=== PATIENT | male | born 1950 | race Caucasian/White ===

== ENCOUNTER 2016-12-10 17:45 | Emergency (ER) | payer OTHER ==
[~2016-12-10] VITALS: Wt 102.1 kg
[~2016-12-10 17:45] MED LIST: ASPIR-LOW81 MG PO; DIOVAN HCT 25 M1 TAB PO; DIOVAN HCT PO; DIOVAN80 M1 PO; ENALAPRIL MALEA20 MG PO; ENALAPRIL20 MG PO; EXCEDRIN 250 MG1 TA1 PO; FENOFIBRATE MIC67 MG PO; GLIMEPIRIDE2 MG PO; HYDROCODONE BIT1 T11 PO; IBUPROFEN; LIPITOR40 MG PO; LOPRESSOR25 MG PO; METOPROLOL SR25 MG PO; NEXIUM40 MG PO; OMEPRAZOLE20 MG PO; PLAVIX75 MG PO; TRICOR48 MG PO; VOLTAREN50 MG PO; [UNRECOGNIZED DRUG - OTHER] PO
[2016-12-10 18:21] LABS: BASO % 0.6 % (0.0-1.0); EOS # 0.2 10*3/uL (0.0-0.4); EOS % 3.3 % (1.0-4.0); HEMOGLOBIN 11.3 g/dl (14.0-18.0); IG # 0.1 10*3/uL (0.0-0.1); LYMPH # 1.4 10*3/uL (1.3-4.4); LYMPH % 27.8 % (27.0-41.0); MEAN CELL VOLUME 92.6 fl (80.0-94.0); MEAN CORPUSCULAR HGB 30.8 pg (27.0-31.0); MEAN CORPUSCULAR HGB CONC 33.2 g/dl (33.0-37.0); MEAN PLATELET VOLUME 9.9 fl (9.6-12.3); MONO # 0.4 10*3/uL (0.1-1.0); MONO % 7.1 % (3.0-9.0); NEUT # 3.1 10*3/uL (2.3-7.9); PLATELET COUNT AUTOMATED 143 10*3/uL (130-400); RED BLOOD COUNT 3.67 10*6/uL (4.50-5.90); RED CELL DISTRI WIDTH 16.8 % (0-14.5); WHITE BLOOD COUNT 5.1 10*3/uL (4.8-10.8)
[2016-12-10 18:30] LABS: INTERNATIONAL NORM RATIO 1.2 (2.0-3.5); PROTHROMBIN TIME 13.1 SECONDS (9.0-12.4)
[2016-12-10 18:40] LABS: BILIRUBIN, TOTAL 0.6 mg/dl (0.2-1.0); POTASSIUM 2.9 mmol/L (3.5-5.1); TOTAL PROTEIN 6.4 gm/dL (6.4-8.2); TROPONIN I 0.028 ng/ml (<0.045)
[2016-12-10 20:02] VITALS: BP 156/83
== END 2016-12-10 20:21 | disposition short-term general hospital (02) ==
LOC: ED 17:45
PROVIDERS: Nurse Practitioner Family
DX: R56.9 Unspecified convulsions (principal); R03.0 Elevated blood-pressure reading, without diagnosis of hypertension; E87.6 Hypokalemia; E83.42 Hypomagnesemia; Z95.5 Presence of coronary angioplasty implant and graft; Z79.899 Other long term (current) drug therapy; Z85.528 Personal history of other malignant neoplasm of kidney; Z85.830 Personal history of malignant neoplasm of bone

== ENCOUNTER → 2016-12-29 | Outpatient (CLI) | payer OTHER | END | disposition home or self-care (01) | LOC: RAD 10:22 | DX: M75.32 Calcific tendinitis of left shoulder (principal); M19.012 Primary osteoarthritis, left shoulder ==

== ENCOUNTER → 2017-03-17 | Outpatient (CLI) | payer MEDICARE, BC | END | disposition home or self-care (01) | LOC: US 13:22 | DX: Z51.11 Encounter for antineoplastic chemotherapy (principal); C64.9 Malignant neoplasm of unspecified kidney, except renal pelvis; M79.89 Other specified soft tissue disorders; I10 Essential (primary) hypertension; R41.0 Disorientation, unspecified; R56.9 Unspecified convulsions ==

== ENCOUNTER → 2017-05-25 | Outpatient (CLI) | payer MEDICARE, BC ==
[2017-05-25 12:20] LABS: HEMATOCRIT 31.6 % (42.0-52.0); MEAN CELL VOLUME 95.8 fl (80.0-94.0); MEAN CORPUSCULAR HGB 30.3 pg (27.0-31.0); MEAN CORPUSCULAR HGB CONC 31.6 g/dl (33.0-37.0); MEAN PLATELET VOLUME 10.8 fl (9.6-12.3); RED BLOOD COUNT 3.3 10*6/uL (4.50-5.90); RED CELL DISTRI WIDTH 17.8 % (0-14.5); WHITE BLOOD COUNT 7.4 10*3/uL (4.8-10.8)
[2017-05-25 12:46] LABS: ALBUMIN 2.8 gm/dl (3.1-4.5); ALKALINE PHOSPHATASE 114 U/L (45-117); BUN 17 mg/dl (7-24); CHLORIDE 110 mmol/L (98-107); CHOLESTEROL 118 mg/dL (<200); CREATININE 1.32 mg/dL (0.70-1.30); HDL CHOLESTEROL 41 mg/dl (40-60); LDL CHOLESTEROL 45 mg/dL (9-159); POTASSIUM 4.4 mmol/L (3.5-5.1); SGOT/AST 28 IU/L (3-35); SGPT/ALT 31 U/L (12-78); SODIUM 145 mmol/L (136-145); TOTAL PROTEIN 6.3 gm/dL (6.4-8.2); TRIGLYCERIDES 159 mg/dl (<150); VLDL CHOLESTEROL 32 mg/dL (6-40)
== END | disposition home or self-care (01) ==
LOC: LAB 11:36
PROVIDERS: Registered Nurse Flight
DX: E78.5 Hyperlipidemia, unspecified (principal); E11.22 Type 2 diabetes mellitus with diabetic chronic kidney disease; N18.3 Chronic kidney disease, stage 3 (moderate); E03.9 Hypothyroidism, unspecified

== ENCOUNTER → 2017-09-30 | Outpatient (CLI) | payer MEDICARE, BC ==
[2017-09-30 11:50] LABS: HEMATOCRIT 29.7 % (42.0-52.0); MEAN CELL VOLUME 92.5 fl (80.0-94.0); MEAN CORPUSCULAR HGB CONC 30.3 g/dl (33.0-37.0); NUCLEATED RED BLOOD CELL 0.3 % (0.0-0.0); RED BLOOD COUNT 3.21 10*6/uL (4.50-5.90); RED CELL DISTRI WIDTH 16.5 % (0-14.5); WHITE BLOOD COUNT 5.9 10*3/uL (4.8-10.8)
[2017-09-30 12:16] LABS: ALBUMIN 2.6 gm/dl (3.1-4.5); ALKALINE PHOSPHATASE 98 U/L (45-117); BUN 11 mg/dl (7-24); CHLORIDE 106 mmol/L (98-107); CHOLESTEROL 127 mg/dL (<200); CREATININE 1.12 mg/dL (0.70-1.30); HDL CHOLESTEROL 40 mg/dl (40-60); LDL CHOLESTEROL 61 mg/dL (9-159); LIPASE 100 U/L (73-393); POTASSIUM 3.8 mmol/L (3.5-5.1); SGOT/AST 22 IU/L (3-35); SGPT/ALT 21 U/L (12-78); SODIUM 143 mmol/L (136-145); TOTAL PROTEIN 6.2 gm/dL (6.4-8.2); TRIGLYCERIDES 132 mg/dl (<150); VLDL CHOLESTEROL 26 mg/dL (6-40)
== END | disposition home or self-care (01) ==
LOC: LAB 11:25
PROVIDERS: Registered Nurse Flight
DX: E03.9 Hypothyroidism, unspecified (principal); R10.12 Left upper quadrant pain; E11.22 Type 2 diabetes mellitus with diabetic chronic kidney disease; N18.3 Chronic kidney disease, stage 3 (moderate); E78.5 Hyperlipidemia, unspecified; R07.81 Pleurodynia; C61 Malignant neoplasm of prostate

== ENCOUNTER → 2017-10-06 | Outpatient (CLI) | payer MEDICARE, BC | END | disposition home or self-care (01) | LOC: RAD 14:15 | DX: M16.11 Unilateral primary osteoarthritis, right hip (principal); M25.751 Osteophyte, right hip ==

== ENCOUNTER 2017-10-13 02:47 | Inpatient (IN) | payer MEDICARE, BC ==
[2017-10-13] VITALS (23 sets, daily range): BP systolic 125–237; BP diastolic 69–120
[~2017-10-13] VITALS: Ht 182.9 cm; Wt 100.9 kg
--- NOTE | ~2017-10-13 | PR ---
[place], [place] PROGRESS NOTE NAME: CAITLIN CONNELLY [facility] #: [id number] UNIT #: [id number] ROOM: [facility]- DOCTOR: KLEVER HUMPHRIES MD BIRTHDATE: [birth year] DOS: 10/14/2017 SUBJECTIVE: The patient was seen at his bedside in the intensive care unit today, 10/14/2017, for followup of his hypertensive emergency. He is a 67-year-old man who has a history of atherosclerotic heart disease. He has had at least 2 catheterizations and 3 stents in the last 10 years. Details are not presently available. He presented to the hospital now because of hypertensive emergency. The patient has been treated for renal cell cancer since 2010. He has failed three regimens and currently is on Cabozantinib for his chemotherapy. One of the side effects of this drug is hypertension and hypertensive emergency. We have spoken to the patient's Oncology Service (Dr. Wasserman at the [facility]). They were told that we should stop the Cabozantinib. I have spoken to Dr. Wasserman's nurse practitioner at length. Dr. Wasserman is currently out of town, but should be returning in the next 3 days and the nurse practitioner will speak to him about our issues. Since he has been in the hospital an echocardiogram has been done, which shows dilation of the ascending thoracic aorta at 4.9 cm, consistent with an ascending aneurysm. He has moderate LVH with a normal ejection fraction. The aortic valve is poorly visualized, but may be bicuspid. In addition to all of the above, he is being evaluated for possible acute cholecystitis. PHYSICAL EXAMINATION: VITAL SIGNS: Today his pulse is 63 and regular, blood pressure is 170/86. He is afebrile. NECK: Supple. He has no jugular distention. Carotids are full. LUNGS: Respirations are unlabored. His chest is clear to auscultation and percussion. HEART: Has a regular rhythm. He has grade 2/6 systolic ejection murmur along the left sternal border. The second heart sound is well preserved. There is no mid systolic click present. The PMI is not displaced. ABDOMEN: Benign. EXTREMITIES: Showed no edema. IMPRESSION: 1. Hypertensive emergency, most likely due to patient's chemotherapy (Cabozantinib). 2. Metastatic renal cell cancer. 3. History of atherosclerotic heart disease. 4. Ascending thoracic aortic aneurysm (4.9 cm) with possible bicuspid aortic valve. 5. Abdominal pain with possible acute cholecystitis. PLAN: We will increase his beta tayrn and add a diuretic to help control his blood pressure better. We will await the opinion of his oncologist to determine whether he is a candidate for an aggressive/invasive cardiac diagnostic workup [place], [place] PROGRESS NOTE [facility]: [id number] UNIT #: [id number] ROOM: [facility] DOCTOR: KLEVER HUMPHRIES MD BIRTHDATE: [birth year] and subsequent thoracotomy. I thank the hospitalist physicians for asking our advice regarding management of this patient. KLEVER HUMPHRIES MD CM:PNTRANS [phone] KLEVER HUMPHRIES MD 10/14/17 1713 interface
--- NOTE | ~2017-10-13 | PR ---
[place], [place] PROGRESS NOTE [id number] UN[facility] #: [id number] ROOM: 401 DOCTOR: JULIO PROCTOR,BRYANNA BIRTHDATE: [birth year] DOS: 10/16/2017 REASON FOR VISIT: Hypertension and ascending thoracic aortic aneurysm. SUBJECTIVE: The patient is feeling better. Denies any chest pain, shortness of breath. His blood pressures are much better after adding new medications yesterday. Denies any shortness of breath or palpitation, no dizziness, no PND, no orthopnea, no edema, no fever and chills. REVIEW OF SYSTEMS: Review of the 8 systems negative except as mentioned above. RHYTHM STRIPS: The patient in sinus rhythm. PHYSICAL EXAMINATION: VITAL SIGNS: Blood pressure 127/76, pulse 62, respirations 18. GENERAL: Alert ____ no acute distress. HEENT: Pupils are round and equal. No jaundice. NECK: Supple, no distended neck veins, no carotid bruit. CHEST: Symmetrical, nontender. LUNGS: Clear to auscultation bilaterally. HEART: Regular rhythm, no S3. ABDOMEN: Benign, nontender. Bowel sounds normal. EXTREMITIES: Showed a trace to 1+ edema. Distal pulses palpable. SKIN: Warm. No cyanosis, no clubbing. RECTAL: Deferred. GENITOURINARY: Deferred. IMPRESSION: 1. Accelerated hypertension, stable after adding hydralazine and hydrochlorothiazide. 2. Ascending thoracic aortic aneurysm 4.9 cm. 3. Atypical chest pains. 4. Anemia. 5. Chronic kidney disease. 6. History of bladder cancer. 7. Intermittent diarrhea due to chemotherapy. RECOMMENDATIONS: 1. Continue current medications. 2. Blood pressure and heart rates are stable. 3. Tomorrow Dr. Robledo will try to contact his oncologist and discuss his long-term prognosis due to his multiple cancers. If his prognosis is reasonable, then we will refer him to cardiothoracic surgery on outpatient basis for further evaluation of his ascending thoracic aortic aneurysm. 4. Continue to monitor his heart rate, blood pressures and labs. 5. The above treatment plan discussed with the patient and all questions answered. [place], [place] PROGRESS NOTE [facility]: [id number] UNIT #: [id number] ROOM: 401 DOCTOR: BRYANNA KIM MD BIRTHDATE: [birth year] BRYANNA KIM MD CM:DENYS [phone] BRYANNA KIM MD 10/17/17 0246 interface
--- NOTE | ~2017-10-13 | PR ---
[place], [place] PROGRESS NOTE NAME: CAITLIN CONNELLY [facility] #: [id number] UNIT #: [id number] ROOM: [place] [address] DOCTOR: KLEVER HUMPHRIES MD BIRTHDATE: [birth year] DOS: 10/13/2017 The patient was seen at his bedside in the intensive care unit today 10/13/2017. CHIEF COMPLAINT: Hypertensive urgency, chest tightness. HISTORY OF PRESENT ILLNESS: The patient is a 67-year-old man who is known to have coronary artery disease. He tells me that within the last 10 years he has had at least 2 catheterizations with 3 stents placed at [facility] and [facility]. The details are not currently available. He has had several stress tests over the years. A stress test with Lexiscan in August 2012 was normal with an ejection fraction of 67%, a subsequent one in March 2014 showed a small area of basal inferolateral ischemia. His most recent stress test did not have any imaging and was done on 09/26/2014. He only achieved 73% of his maximum predicted heart rate and only exercised for 6 minutes, but he did not have diagnostic EKG changes or chest discomfort at that time. Concurrently, the patient has had a long history of renal cell cancer. He states that he was first diagnosed around 2009 prior to which he did have a prostatectomy for prostate cancer. The renal cell cancer was treated with radiation and chemotherapy. He had a partial left nephrectomy and then with the cancer recurred, he had a total left nephrectomy. He has been documented as having a left lung metastasis and has undergone a partial left upper lobectomy. More recently, he was found to have cancer in his left fifth rib. He tells me that he failed 3 chemotherapies. For the last year, he has been on a cabozantinib orally. This causes severe diarrhea, nausea and vomiting, but apparently has resulted in some slowing of tumor growth. Currently because of the side effects the patient takes the drug for 3 weeks orally out of the month and then takes a fourth week off. He presents to the hospital now with a pounding headache and shaking chills. Blood pressure at home was over 200 systolic. He was brought to the emergency room where he was remarkably hypertensive with a blood pressure of 237/120. He was given amlodipine, hydralazine, and enalapril. Blood pressure has improved and this morning on last measurement it was 129/70. Review of the patient's medications indicates that hypertension is a very common side effect of the cabozantinib. The package insert from the bench hand machine indicates that if the patient has a hypertensive emergency, the drug should probably be stopped. The patient has also noticed increased pedal edema lately, but he does note that he was started on amlodipine recently and this may have been the cause for that. PAST HISTORY: Includes: 1. Hypertension. 2. Atherosclerotic heart disease, status post 3 stents about 10 years ago at [facility] and [facility]. The patient has never had a heart attack. [place], [place] PROGRESS NOTE NAME: CAITLIN CONNELLY UNIT #: [id number] ROOM: [place] [address] DOCTOR: KLEVER HUMPHRIES MD BIRTHDATE: [birth year] 3. Prostate cancer documented around 2007. 4. Renal cell cancer documented around 2009, treated with radiation and chemotherapy. The patient has had a partial and then a total left nephrectomy. He has had a documented left upper lobe lung metastasis, which was resected and now is known to have a left fifth rib metastasis which is being treated medically. 5. Most recent imaging stress test was 04/16/2014 with Lexiscan. The patient had an ejection fraction of 77% with a small area of basal inferolateral ischemia. A subsequent exercise stress test without imaging 09/26/2014 was 6 minutes on a Jorden protocol, 73% maximum predicted heart rate. No chest pain or EKG changes at the level of exercise achieved. 6. The patient has had a right bundle branch block for several years. MEDICATIONS PRIOR TO ADMISSION: 1. Atorvastatin 40 mg at bedtime. 2. Cabozantinib 60 mg at bedtime for 3 weeks out of 4. He gets 1 week off out of every 4. 3. Cholecalciferol 1000 units daily. 4. Lomotil p.r.n. diarrhea. 5. Enalapril 20 mg daily. 6. Levothyroxine 125 mcg daily. 7. Magnesium oxide 400 mg b.i.d. 8. Morphine sulfate 100 mg p.o. b.i.d. 9. Centrum Silver once a day. 10. Omeprazole 20 mg daily. 11. Ondansetron 4 mg daily as needed. 12. Sertraline 100 mg daily. 13. Tramadol 50 mg q.i.d. ALLERGIES: The patient has no known drug allergies. FAMILY HISTORY: The patient's father in his 70s from cancer. His mother in her 50s from a motor vehicle accident. REVIEW OF SYSTEMS: The patient denies diplopia, loss of vision. He denies syncope. He has had some lightheadedness. He denies focal weakness. He had chest tightness prior to admission, which has since resolved. He denies focal weakness. He has had nausea and vomiting with his chemotherapy. He denies hemoptysis. He has had fevers and chills prior to admission. He denies any recent weight change. He has chronic diarrhea with chemotherapy. He denies blood in his stools, but he does get blood in his urine. He has had pedal edema. Remainder of the review of systems is negative except as noted above. SOCIAL HISTORY: The patient smoked until 2012 and stopped alcohol 1 year ago. PHYSICAL EXAMINATION: GENERAL: The patient is a well-nourished, white male who looks older than his stated age. VITAL SIGNS: Pulse is 90 and regular, blood pressure 129/70. He has temperature of 102.9 and a body mass index of 30.2. He weighs 100.9 kilograms. [place], [place] PROGRESS NOTE [facility]: [id number] [facility] #: [id number] ROOM: [place] [address] DOCTOR: KLEVER HUMPHRIES MD BIRTHDATE: [birth year] HEENT: Normocephalic and atraumatic. Extraocular muscles are intact. Sclerae are clear. Pupils equal, round and react to light. The oral mucosa is moist. Tongue is midline. NECK: Supple. He has no jugular distention. Carotids are full. I heard no bruits. He had no neck or supraclavicular masses and no thyromegaly. LUNGS: Respirations are unlabored. His chest is clear to auscultation and percussion with decreased breath sounds at the bases, but no wheezes or rales. HEART: Has a regular rhythm. He has a fourth heart sound, but no third heart sound. The PMI is not displaced. I did not hear significant murmur. There is no precordial heave, lift or thrill. ABDOMEN: Soft and normally active without masses, organomegaly or bruits. EXTREMITIES: Showed trace edema. He is wearing support stockings. Pedal pulses are palpable in the feet. LABORATORY DATA: I reviewed his electrocardiograms, which showed sinus rhythm with a right bundle branch block. He does have some mild lateral ST segment depression, but no acute changes are seen. Troponin levels have been negative thus far times 3. Sodium is 142, potassium 3.8, chloride 103, CO2 28, BUN 11, creatinine 1.27. Hemoglobin is 10.6, hematocrit 35.1. There are 8600 white cells and 214,000 platelets. I reviewed the patient's echocardiogram today. Left ventricular size is normal. He does have moderate concentric left ventricular hypertrophy, ejection fraction is normal. I saw no wall motion abnormalities. He does have a normal diastolic function for age. The left atrium appears mildly enlarged. The aortic valve is poorly visualized, but may be bicuspid. The ascending thoracic aorta is dilated at 4.9 cm. IMPRESSION: 1. Hypertensive urgency, most likely this is a side effect of his chemotherapy, cabozantinib. 2. Chest tightness. The patient does have a history of coronary artery disease, but no signs of acute coronary syndrome at this point. 3. Possible bicuspid aortic valve with ascending thoracic aortic aneurysm. 4. Metastatic renal cell cancer. PLAN: The patient's blood pressure is much better controlled now and I would like to control it further utilizing beta blockers, especially since he does have a descending thoracic aortic dilation. The patient appears to have very few options for the treatment of his metastatic cancer. His oncologist should be contacted with the news of his hypertensive emergency to see if we should continue his cabozantinib. Other options for further care should also be discussed. If he has a reasonable intermediate term prognosis, then further evaluation with a ORQUIDEA would be helpful to look at his aortic root and aortic valve and determine if he would be a candidate for aortic root replacement. This would require thoracotomy and would certainly be an extensive procedure if the patient's prognosis is otherwise poor. We will follow the patient with his other physicians and we thank the [place], [place] PROGRESS NOTE NAME: [facility] CONNE[facility]: [id number] UNIT #: [id number] ROOM: [place] [address] DOCTOR: KRISTEL PROCTOR,KLEVER BIRTHDATE: [birth year] hospitalist physicians for asking our advice regarding his care. KLEVER HUMPHRIES MD CM:PNTRANS [phone] KLEVER HUMPHRIES MD 10/13/17 1045 interface
--- NOTE | ~2017-10-13 | PR ---
[place], [place] PROGRESS NOTE [id number] #: [id number] ROOM: 401 DOCTOR: JULIO PROCTOR,BRYANNA BIRTHDATE: [birth year] DOS: 10/15/2017 REASON FOR VISIT: Hypertension and thoracic aortic aneurysm. SUBJECTIVE: The patient denies any chest pain or shortness of breath. Denies any dizziness, no PND, no orthopnea, no palpitations. The patient did have some diarrhea, which is getting better. REVIEW OF SYSTEMS: Review of the 8 systems negative except as mentioned above. RHYTHM STRIPS: The patient in sinus rhythm. PHYSICAL EXAMINATION: VITAL SIGNS: Blood pressure 175/91, pulse 58, respiratory rate was 16. GENERAL: Alert, comfortable, in no acute distress. HEENT: Pupils round, equal. No jaundice. Tongue was moist and pharynx clear. NECK: Supple, no distended neck veins, no carotid bruit. CHEST: Symmetrical, nontender. LUNGS: Clear to auscultation bilaterally. HEART: Regular rhythm, no S3. Grade 1/6 systolic murmur. ABDOMEN: Nontender. Bowel sounds normal. EXTREMITIES: Trace to 1+ edema. Distal pulses are palpable. SKIN: Warm and dry. No cyanosis, no clubbing. NEUROLOGIC: The patient is alert, oriented. No focal neurologic deficit. RECTAL: Deferred. GENITOURINARY: Deferred. MEDICATIONS AND LABORATORY DATA: Reviewed. Hemoglobin 9.1, creatinine 1.5. IMPRESSION: 1. Accelerated hypertension. 2. Ascending thoracic aortic aneurysm. 3. Sinus bradycardia. 4. Anemia. 5. Chronic kidney disease. 6. History of lung and bladder cancer, on chemotherapy. RECOMMENDATIONS: He need blood pressure control, add hydrochlorothiazide 12.5 mg once daily as well as hydralazine 50 mg twice a day and monitor his blood pressures. Continue rest of the medications. Discussed with several family members and all questions were answered. On Tuesday, Dr. Robledo will discuss with his oncologist who is currently on vacation and based on his long-term prognosis from his multiple cancers, further recommendation for his thoracic aortic aneurysm will be discussed. [place], [place] PROGRESS NOTE NAME: CAITLIN CONNELLY [facility] #: [id number] UNIT #: [id number] ROOM: 401 DOCTOR: JULIO PROCTOR,BRYANNA BIRTHDATE: [birth year] BRYANNA KIM MD CM:PNTRANS [phone] BRYANNA KIM MD 10/15/173 interface
[~2017-10-13 02:47] MED LIST changes: +OMEPRAZOLE D/R20 MG PO; -OMEPRAZOLE20 MG PO
[2017-10-13 03:06] LABS: BASO % 0.3 % (0.0-1.0); EOS # 0.2 10*3/uL (0.0-0.4); EOS % 1.9 % (1.0-4.0); HEMATOCRIT 35.1 % (42.0-52.0); HEMOGLOBIN 10.6 g/dl (14.0-18.0); LYMPH # 0.9 10*3/uL (1.3-4.4); LYMPH % 10.4 % (27.0-41.0); MEAN CELL VOLUME 92.1 fl (80.0-94.0); MEAN CORPUSCULAR HGB 27.8 pg (27.0-31.0); MEAN CORPUSCULAR HGB CONC 30.2 g/dl (33.0-37.0); MEAN PLATELET VOLUME 10.4 fl (9.6-12.3); MONO % 11.8 % (3.0-9.0); NEUT # 6.5 10*3/uL (2.3-7.9); NEUT % 75.1 % (47.0-73.0); PLATELET COUNT AUTOMATED 214 10*3/uL (130-400); RED BLOOD COUNT 3.81 10*6/uL (4.50-5.90); RED CELL DISTRI WIDTH 16.6 % (0-14.5); WHITE BLOOD COUNT 8.6 10*3/uL (4.8-10.8)
[2017-10-13 03:15] LABS: ACT PARTIAL THROMBO TIME 25.9 SECONDS (20.8-31.5); INTERNATIONAL NORM RATIO 0.9 (2.0-3.5)
[2017-10-13 03:23] LABS: ALBUMIN 3.1 gm/dl (3.1-4.5); ALKALINE PHOSPHATASE 151 U/L (45-117); BUN 11 mg/dl (7-24); CHLORIDE 103 mmol/L (98-107); CREATININE 1.27 mg/dL (0.70-1.30); POTASSIUM 3.8 mmol/L (3.5-5.1); SGOT/AST 33 IU/L (3-35); SGPT/ALT 27 U/L (12-78); SODIUM 142 mmol/L (136-145); TOTAL PROTEIN 7.2 gm/dL (6.4-8.2)
[2017-10-13 03:24] LABS: TROPONIN I < 0.015 ng/ml (<0.045)
[2017-10-13] MEDS ORDERED: MORPHINE SULFA100 MG PO (03:29)
[2017-10-13] MEDS ORDERED: TRAMADOL HCL50 MG PO (03:29)
[2017-10-13] MEDS ORDERED: MAGNESIUM OXID400 MG PO (03:29)
[2017-10-13] MEDS ORDERED: LEVOTHYROXINE125 MCG PO (03:30)
[2017-10-13] MEDS ORDERED: LOMOTIL 2.5-0.1 EACH PO (03:30)
[2017-10-13] MEDS ORDERED: ONDANSETRON HYDR4 MG PO (03:31)
[2017-10-13] MEDS ORDERED: ENALAPRIL MALEA20 MG PO (03:31)
[2017-10-13] MEDS ORDERED: SERTRALINE HYDR50 MG PO (03:31)
[2017-10-13] MEDS ORDERED: SERTRALINE HYD100 MG PO (06:20)
[2017-10-13] MEDS ORDERED: CABOMETYX60 MG PO (06:24)
[2017-10-13] MEDS ORDERED: CENTRUM SILVER1 EAC3 PO (06:26)
[2017-10-13] MEDS ORDERED: VITAMIN D31000 UNI1 PO (06:27)
[2017-10-13 13:38] LABS: BILIRUBIN NEGATIVE (NEGATIVE); BLOOD NEGATIVE (NEGATIVE); CLARITY CLOUDY (CLEAR); COLOR YELLOW (YELLOW); GLUCOSE NEGATIVE (NEGATIVE); KETONE TRACE (NEGATIVE); LEUKO ESTERASE NEGATIVE (NEGATIVE); NITRITE NEGATIVE (NEGATIVE); PH 5.5 (5.0-9.0); SPECIFIC GRAVITY 1.025 (1.005-1.030); UROBILINOGEN 0.2 E.U./dl (0.2-1.0)
[2017-10-13 14:00] LABS: BACTERIA 2+
[2017-10-13 14:01] LABS: EPITHELIAL CELLS 21-30
[2017-10-14] VITALS: BP 145/70
[2017-10-14 04:00] VITALS: BP 140/74
[2017-10-14 04:42] LABS: HEMATOCRIT 29.6 % (42.0-52.0); HEMOGLOBIN 8.8 g/dl (14.0-18.0); MEAN CELL VOLUME 92.2 fl (80.0-94.0); MEAN CORPUSCULAR HGB 27.4 pg (27.0-31.0); MEAN CORPUSCULAR HGB CONC 29.7 g/dl (33.0-37.0); MEAN PLATELET VOLUME 10.2 fl (9.6-12.3); RED BLOOD COUNT 3.21 10*6/uL (4.50-5.90)
[2017-10-14 04:46] LABS: PLATELET COUNT AUTOMATED 137 10*3/uL (130-400)
[2017-10-14 05:08] LABS: ALBUMIN 2.2 gm/dl (3.1-4.5); CREATININE 1.55 mg/dL (0.70-1.30); PHOSPHOROUS 3.4 mg/dL (2.5-4.9); TOTAL PROTEIN 5.5 gm/dL (6.4-8.2)
[2017-10-14 05:32] LABS: TOTAL CELLS COUNTED 100 #CELLS
[2017-10-14 05:33] LABS: OVALOCYTES FEW; PLATELET SUFFICIENCY LOW (NORMAL)
[2017-10-14 08:00] VITALS: BP 172/80
[2017-10-14 08:33] LABS: VITAMIN D, 25-HYDROXY 21.2 ng/mL (30-100)
[2017-10-14 11:46] VITALS: BP 170/86
[2017-10-14 16:00] VITALS: BP 160/92
[2017-10-14 20:00] VITALS: BP 158/98
[2017-10-15] VITALS: BP 129/71
[2017-10-15 04:00] VITALS: BP 154/80
[2017-10-15 06:07] LABS: BASO % 0.1 % (0.0-1.0); EOS # 0.1 10*3/uL (0.0-0.4); EOS % 1.8 % (1.0-4.0); HEMATOCRIT 30.7 % (42.0-52.0); HEMOGLOBIN 9.1 g/dl (14.0-18.0); LYMPH # 0.3 10*3/uL (1.3-4.4); LYMPH % 3.4 % (27.0-41.0); MEAN CELL VOLUME 92.2 fl (80.0-94.0); MEAN CORPUSCULAR HGB 27.3 pg (27.0-31.0); MEAN CORPUSCULAR HGB CONC 29.6 g/dl (33.0-37.0); MEAN PLATELET VOLUME 10.6 fl (9.6-12.3); MONO # 1.3 10*3/uL (0.1-1.0); NEUT # 6.2 10*3/uL (2.3-7.9); NEUT % 78.1 % (47.0-73.0); PLATELET COUNT AUTOMATED 137 10*3/uL (130-400); RED BLOOD COUNT 3.33 10*6/uL (4.50-5.90); RED CELL DISTRI WIDTH 16.8 % (0-14.5)
[2017-10-15 06:27] LABS: CREATININE 1.51 mg/dL (0.70-1.30); POTASSIUM 3.5 mmol/L (3.5-5.1)
[2017-10-15 08:00] VITALS: BP 156/91
[2017-10-15 10:17] LABS: CREATININE 1.51 mg/dL (0.70-1.30); POTASSIUM 3.5 mmol/L (3.5-5.1)
[2017-10-15 10:43] LABS: TOTAL PROTEIN 5.9 gm/dL (6.4-8.2)
[2017-10-15 10:44] LABS: ALBUMIN 2.3 gm/dl (3.1-4.5)
[2017-10-15 12:00] VITALS: BP 175/91
[2017-10-15 16:00] VITALS: BP 148/73
[2017-10-15 20:00] VITALS: BP 138/63
[2017-10-16] VITALS: BP 119/64
[2017-10-16 07:30] LABS: BASO % 0.2 % (0.0-1.0); EOS # 0.1 10*3/uL (0.0-0.4); EOS % 1.3 % (1.0-4.0); HEMOGLOBIN 9.3 g/dl (14.0-18.0); LYMPH # 0.4 10*3/uL (1.3-4.4); LYMPH % 7.1 % (27.0-41.0); MEAN CELL VOLUME 89.3 fl (80.0-94.0); MEAN CORPUSCULAR HGB 27.7 pg (27.0-31.0); MEAN PLATELET VOLUME 10.6 fl (9.6-12.3); MONO # 0.9 10*3/uL (0.1-1.0); MONO % 16.6 % (3.0-9.0); NEUT # 3.9 10*3/uL (2.3-7.9); PLATELET COUNT AUTOMATED 132 10*3/uL (130-400); RED BLOOD COUNT 3.36 10*6/uL (4.50-5.90); WHITE BLOOD COUNT 5.2 10*3/uL (4.8-10.8)
[2017-10-16 07:40] LABS: ALBUMIN 2.2 gm/dl (3.1-4.5); ALKALINE PHOSPHATASE 207 U/L (45-117); BUN 15 mg/dl (7-24); CHLORIDE 103 mmol/L (98-107); CREATININE 1.43 mg/dL (0.70-1.30); POTASSIUM 3.5 mmol/L (3.5-5.1); SGOT/AST 44 IU/L (3-35); SGPT/ALT 35 U/L (12-78); SODIUM 139 mmol/L (136-145)
[2017-10-16 08:00] VITALS: BP 138/68
[2017-10-16 12:00] VITALS: BP 127/76
[2017-10-16 16:00] VITALS: BP 124/64
[2017-10-16 20:00] VITALS: BP 148/72
[2017-10-16 21:06] VITALS: BP 138/70
[2017-10-17] VITALS: BP 133/60
[2017-10-17 06:43] LABS: BASO % 0.2 % (0.0-1.0); EOS # 0.1 10*3/uL (0.0-0.4); EOS % 2.5 % (1.0-4.0); HEMATOCRIT 29.1 % (42.0-52.0); HEMOGLOBIN 8.8 g/dl (14.0-18.0); LYMPH # 0.6 10*3/uL (1.3-4.4); LYMPH % 13.9 % (27.0-41.0); MEAN CELL VOLUME 90.7 fl (80.0-94.0); MEAN CORPUSCULAR HGB 27.4 pg (27.0-31.0); MEAN CORPUSCULAR HGB CONC 30.2 g/dl (33.0-37.0); MEAN PLATELET VOLUME 11.2 fl (9.6-12.3); MONO # 0.9 10*3/uL (0.1-1.0); MONO % 19.4 % (3.0-9.0); NEUT # 2.8 10*3/uL (2.3-7.9); NEUT % 62.9 % (47.0-73.0); PLATELET COUNT AUTOMATED 127 10*3/uL (130-400); RED BLOOD COUNT 3.21 10*6/uL (4.50-5.90); RED CELL DISTRI WIDTH 16.8 % (0-14.5); WHITE BLOOD COUNT 4.4 10*3/uL (4.8-10.8)
[2017-10-17 07:09] LABS: ALBUMIN 2.3 gm/dl (3.1-4.5); ALKALINE PHOSPHATASE 291 U/L (45-117); BUN 14 mg/dl (7-24); CHLORIDE 103 mmol/L (98-107); CREATININE 1.42 mg/dL (0.70-1.30); POTASSIUM 3.6 mmol/L (3.5-5.1); SGOT/AST 47 IU/L (3-35); SGPT/ALT 39 U/L (12-78); SODIUM 139 mmol/L (136-145); TOTAL PROTEIN 5.8 gm/dL (6.4-8.2)
[2017-10-17 08:00] VITALS: BP 162/80
[2017-10-17 12:00] VITALS: BP 115/66
[2017-10-17] MEDS ORDERED: B12,B-12,B 12500 MC1 PO (15:58)
[2017-10-17] MEDS ORDERED: TOPROL XL50 M1 PO (15:58)
[2017-10-17] MEDS ORDERED: CIPRO500 MG PO (15:58)
[2017-10-17] MEDS ORDERED: ENALAPRIL MALEA10 MG PO (15:58)
[2017-10-17] MEDS ORDERED: HYDR12.5C PO (15:58)
[2017-10-17] MEDS ORDERED: AMLODIPINE BESYL5 MG PO (15:58)
== END 2017-10-17 16:31 | disposition home or self-care (01) | DRG 872 ==
LOC: ED 02:47 → 4E 05:09 → EDHOLD 05:09 → ICCU 05:09 → 4E 10-15 13:50
PROVIDERS: Emergency Medicine Emergency Medical Services; Internal Medicine; Internal Medicine Nephrology; Student in an Organized Health Care Education/Training Program
DX: A41.9 Sepsis, unspecified organism (principal); E44.0 Moderate protein-calorie malnutrition; C78.02 Secondary malignant neoplasm of left lung; K80.00 Calculus of gallbladder with acute cholecystitis without obstruction; K52.0 Gastroenteritis and colitis due to radiation; M84.454A Pathological fracture, pelvis, initial encounter for fracture; E11.22 Type 2 diabetes mellitus with diabetic chronic kidney disease; I38 Endocarditis, valve unspecified; C64.9 Malignant neoplasm of unspecified kidney, except renal pelvis; I16.1 Hypertensive emergency; I71.2 Thoracic aortic aneurysm, without rupture; R65.20 Severe sepsis without septic shock; K21.9 Gastro-esophageal reflux disease without esophagitis; I25.10 Atherosclerotic heart disease of native coronary artery without angina pectoris; E03.9 Hypothyroidism, unspecified; D64.9 Anemia, unspecified; N18.9 Chronic kidney disease, unspecified; I12.9 Hypertensive chronic kidney disease with stage 1 through stage 4 chronic kidney disease, or unspecified chronic kidney disease; E55.9 Vitamin D deficiency, unspecified; E78.5 Hyperlipidemia, unspecified; K76.0 Fatty (change of) liver, not elsewhere classified; R07.89 Other chest pain; F32.9 Major depressive disorder, single episode, unspecified; F10.21 Alcohol dependence, in remission; E66.09 Other obesity due to excess calories; Z68.30 Body mass index [BMI] 30.0-30.9, adult; Z90.5 Acquired absence of kidney; Z79.899 Other long term (current) drug therapy; Z80.9 Family history of malignant neoplasm, unspecified; Z95.818 Presence of other cardiac implants and grafts; Z90.49 Acquired absence of other specified parts of digestive tract; Z90.79 Acquired absence of other genital organ(s); Z87.891 Personal history of nicotine dependence; Z90.2 Acquired absence of lung [part of]

== ENCOUNTER 2017-10-22 15:27 | Emergency (ER) | payer MEDICARE, BC ==
[~2017-10-22] VITALS: Ht 182.8 cm; Wt 99.3 kg
[~2017-10-22 15:27] MED LIST changes: +AMLODIPINE BESYL5 MG PO; +B12,B-12,B 12500 MC1 PO; +CABOMETYX60 MG PO; +CENTRUM SILVER1 EAC3 PO; +CIPRO500 MG PO; +ENALAPRIL MALEA10 MG PO; +HYDR12.5C PO; +LEVOTHYROXINE125 MCG PO; +LOMOTIL 2.5-0.1 EACH PO; +MAGNESIUM OXID400 MG PO; +MORPHINE SULFA100 MG PO; +ONDANSETRON HYDR4 MG PO; +SERTRALINE HYD100 MG PO; +SERTRALINE HYDR50 MG PO; +TOPROL XL50 M1 PO; +TRAMADOL HCL50 MG PO; +VITAMIN D31000 UNI1 PO
[2017-10-22 15:28] VITALS: BP 137/83
== END 2017-10-22 16:58 | disposition home or self-care (01) ==
LOC: ED 15:27
DX: S22.42XA Multiple fractures of ribs, left side, initial encounter for closed fracture (principal); Z87.891 Personal history of nicotine dependence; Z90.49 Acquired absence of other specified parts of digestive tract; Z98.890 Other specified postprocedural states; Z90.89 Acquired absence of other organs; W19.XXXA Unspecified fall, initial encounter; Y93.89 Activity, other specified; Y92.099 Unspecified place in other non-institutional residence as the place of occurrence of the external cause; Y99.9 Unspecified external cause status

== ENCOUNTER → 2017-12-07 | Outpatient (CLI) | payer MEDICARE, BC | END | disposition home or self-care (01) | LOC: RESCLI 03:38 | DX: Z09 Encounter for follow-up examination after completed treatment for conditions other than malignant neoplasm (principal); C64.2 Malignant neoplasm of left kidney, except renal pelvis; C44.42 Squamous cell carcinoma of skin of scalp and neck; C79.51 Secondary malignant neoplasm of bone; C18.9 Malignant neoplasm of colon, unspecified; I10 Essential (primary) hypertension; H90.3 Sensorineural hearing loss, bilateral; H93.13 Tinnitus, bilateral; M84.454A Pathological fracture, pelvis, initial encounter for fracture; G51.3 Clonic hemifacial spasm; E78.2 Mixed hyperlipidemia; E03.8 Other specified hypothyroidism; E78.00 Pure hypercholesterolemia, unspecified ==

== ENCOUNTER → 2018-01-11 | Outpatient (CLI) | payer MEDICARE, BC | END | disposition home or self-care (01) | LOC: RESCLI 03:35 | DX: C79.51 Secondary malignant neoplasm of bone (principal); M19.90 Unspecified osteoarthritis, unspecified site; E78.4 Other hyperlipidemia; C64.2 Malignant neoplasm of left kidney, except renal pelvis; I10 Essential (primary) hypertension; K21.9 Gastro-esophageal reflux disease without esophagitis; E03.9 Hypothyroidism, unspecified; Z90.49 Acquired absence of other specified parts of digestive tract; Z98.890 Other specified postprocedural states; Z90.5 Acquired absence of kidney; Z79.899 Other long term (current) drug therapy ==

== ENCOUNTER 2018-01-26 15:27 | Emergency (ER) | payer MEDICARE, BC ==
[~2018-01-26] VITALS: Wt 99.8 kg
--- NOTE | ~2018-01-26 | EKG ---
[place], [place] ELECTROCARDIOGRAM REPORT NAME: CAITLIN CONNELLY UNIT #: [id number] ROOM: DOCTOR: [facility] DRAFT REPORT BIRTHDATE: [birth year] [facility] Test Date: 2018-01-26 Test Time: 16:03:52 Pat Name: CAITLIN CONNELLY Department: Room: Gender: Instructional Interventionist: Deborah Gomez : 1950 Requested By: JOYCELYN IVORY Order Number: [id number] Reading MD: Dayron Wan MD Measurements Intervals [place] Rate: 61 P: -33 DC: 242 QRS: 34 QRSD: 137 T: -10 QT: 448 QTc: 452 Interpretive Statements Sinus rhythm Prolonged DC interval Right bundle branch block Baseline wander in lead(s) I Electronically Signed On 01-26-2018 19:58:48 PDT by Dayron Wan MD CM:EKGRPT:ELECTROCARDIOGRAM REPORT 02 57 JOYCELYN MEDEIROS DRAFT REPORT JOYCELYN IVORY DO
[2018-01-26 16:07] LABS: HEMATOCRIT 29.6 % (42.0-52.0); HEMOGLOBIN 9.2 g/dl (14.0-18.0); MEAN CORPUSCULAR HGB CONC 31.1 g/dl (33.0-37.0); MEAN PLATELET VOLUME 10.9 fl (9.6-12.3); PLATELET COUNT AUTOMATED 125 10*3/uL (130-400); RED BLOOD COUNT 3.29 10*6/uL (4.50-5.90); RED CELL DISTRI WIDTH 19.2 % (0-14.5); WHITE BLOOD COUNT 21.7 10*3/uL (4.8-10.8)
[2018-01-26 16:23] LABS: ALBUMIN 2.8 gm/dl (3.1-4.5); ALKALINE PHOSPHATASE 380 U/L (45-117); BUN 44 mg/dl (7-24); CHLORIDE 107 mmol/L (98-107); CREATININE 3.28 mg/dL (0.70-1.30); LIPASE 133 U/L (73-393); POTASSIUM 4.2 mmol/L (3.5-5.1); SGOT/AST 292 IU/L (3-35); SGPT/ALT 253 U/L (12-78); SODIUM 141 mmol/L (136-145); TOTAL PROTEIN 6.3 gm/dL (6.4-8.2)
[2018-01-26 16:26] LABS: TOTAL CELLS COUNTED 100 #CELLS; TROPONIN I < 0.015 ng/ml (<0.045)
[2018-01-26 16:27] LABS: BURR CELLS FEW; OVALOCYTES FEW; PLATELET SUFFICIENCY NORMAL (NORMAL)
[2018-01-26 16:42] LABS: BILIRUBIN 3+ (NEGATIVE); BLOOD NEGATIVE (NEGATIVE); CLARITY SL CLOUDY (CLEAR); COLOR YELLOW (YELLOW); GLUCOSE NEGATIVE (NEGATIVE); KETONE 1+ (NEGATIVE); LEUKO ESTERASE NEGATIVE (NEGATIVE); NITRITE NEGATIVE (NEGATIVE); SPECIFIC GRAVITY >= 1.030 (1.005-1.030); UROBILINOGEN >= 8.0 E.U./dl (0.2-1.0)
[2018-01-26 17:15] LABS: BACTERIA 2+; EPITHELIAL CELLS 21-30
[2018-01-26 18:50] VITALS: BP 102/63
== END 2018-01-26 22:41 | disposition short-term general hospital (02) ==
LOC: ED 15:27
PROVIDERS: Internal Medicine
DX: K83.0 Cholangitis (principal); I25.10 Atherosclerotic heart disease of native coronary artery without angina pectoris; E11.9 Type 2 diabetes mellitus without complications; I10 Essential (primary) hypertension; E78.5 Hyperlipidemia, unspecified; E03.9 Hypothyroidism, unspecified; Z87.891 Personal history of nicotine dependence; Z79.899 Other long term (current) drug therapy

== ENCOUNTER 2018-03-28 15:45 | Inpatient (IN) | payer MEDICARE, BC ==
[~2018-03-28] VITALS: Ht 182.8 cm; Wt 99.8 kg
[2018-03-28 15:47] VITALS: BP 128/79
[2018-03-28 17:20] LABS: BASO % 0.2 % (0.0-1.0); EOS # 0.2 10*3/uL (0.0-0.4); EOS % 1.3 % (1.0-4.0); HEMATOCRIT 29.9 % (42.0-52.0); HEMOGLOBIN 9.9 g/dl (14.0-18.0); LYMPH # 0.7 10*3/uL (1.3-4.4); LYMPH % 4.8 % (27.0-41.0); MEAN CELL VOLUME 88.2 fl (80.0-94.0); MEAN CORPUSCULAR HGB 29.2 pg (27.0-31.0); MEAN CORPUSCULAR HGB CONC 33.1 g/dl (33.0-37.0); MEAN PLATELET VOLUME 9.7 fl (9.6-12.3); MONO # 1.3 10*3/uL (0.1-1.0); MONO % 8.9 % (3.0-9.0); NEUT # 12.7 10*3/uL (2.3-7.9); NEUT % 84.1 % (47.0-73.0); PLATELET COUNT AUTOMATED 143 10*3/uL (130-400); RED BLOOD COUNT 3.39 10*6/uL (4.50-5.90); RED CELL DISTRI WIDTH 17.6 % (0-14.5); WHITE BLOOD COUNT 15.1 10*3/uL (4.8-10.8)
[2018-03-28 17:29] LABS: ACT PARTIAL THROMBO TIME 30.3 SECONDS (20.8-31.5)
[2018-03-28 17:36] LABS: ALBUMIN 2.7 gm/dl (3.1-4.5); CREATININE 2.88 mg/dL (0.70-1.30); POTASSIUM 4.4 mmol/L (3.5-5.1); TOTAL PROTEIN 7.1 gm/dL (6.4-8.2)
[2018-03-28 18:16] LABS: BILIRUBIN NEGATIVE (NEGATIVE); BLOOD NEGATIVE (NEGATIVE); CLARITY SL CLOUDY (CLEAR); COLOR YELLOW (YELLOW); GLUCOSE NEGATIVE (NEGATIVE); KETONE NEGATIVE (NEGATIVE); LEUKO ESTERASE NEGATIVE (NEGATIVE); NITRITE NEGATIVE (NEGATIVE); PH 5.5 (5.0-9.0); SPECIFIC GRAVITY >= 1.030 (1.005-1.030); UROBILINOGEN 0.2 E.U./dl (0.2-1.0)
[2018-03-28 18:26] LABS: BACTERIA 2+
[2018-03-28 18:27] LABS: EPITHELIAL CELLS 16-20
[2018-03-28 18:34] VITALS: BP 101/65
[2018-03-28 20:30] VITALS: BP 125/87; BP 127/87
[2018-03-28] MEDS ORDERED: CABOMETYX40 MG PO (21:36)
[2018-03-29] VITALS: BP 105/67
[2018-03-29 06:21] LABS: HEMATOCRIT 28.3 % (42.0-52.0); HEMOGLOBIN 8.8 g/dl (14.0-18.0); MEAN CELL VOLUME 90.1 fl (80.0-94.0); MEAN CORPUSCULAR HGB CONC 31.1 g/dl (33.0-37.0); MEAN PLATELET VOLUME 10.4 fl (9.6-12.3); PLATELET COUNT AUTOMATED 135 10*3/uL (130-400); RED BLOOD COUNT 3.14 10*6/uL (4.50-5.90); RED CELL DISTRI WIDTH 17.6 % (0-14.5); WHITE BLOOD COUNT 12.7 10*3/uL (4.8-10.8)
[2018-03-29 06:42] LABS: ALBUMIN 2.4 gm/dl (3.1-4.5); CREATININE 2.62 mg/dL (0.70-1.30); PHOSPHOROUS 3.8 mg/dL (2.5-4.9); POTASSIUM 5.3 mmol/L (3.5-5.1); TOTAL PROTEIN 6.5 gm/dL (6.4-8.2)
[2018-03-29 06:48] LABS: FREE T4 0.98 ng/dl (0.76-1.46); THYROID STIM HORMONE (HS) 0.43 uIU/ml (0.358-4.75)
[2018-03-29 07:35] LABS: TOTAL CELLS COUNTED 100 #CELLS
[2018-03-29 07:36] LABS: BURR CELLS MODERATE; OVALOCYTES FEW; PLATELET SUFFICIENCY NORMAL (NORMAL); POLYCHROMASIA SLIGHT
[2018-03-29 08:00] VITALS: BP 105/65
[2018-03-29 08:35] LABS: VITAMIN D, 25-HYDROXY 19.6 ng/mL (30-100)
[2018-03-29 12:00] VITALS: BP 120/66
[2018-03-29 16:00] VITALS: BP 130/78
[2018-03-29 20:00] VITALS: BP 137/78
[2018-03-30] VITALS: BP 121/62
[2018-03-30 06:24] LABS: HEMATOCRIT 28.2 % (42.0-52.0); HEMOGLOBIN 8.8 g/dl (14.0-18.0); MEAN CORPUSCULAR HGB 28.4 pg (27.0-31.0); MEAN CORPUSCULAR HGB CONC 31.2 g/dl (33.0-37.0); MEAN PLATELET VOLUME 10.6 fl (9.6-12.3); PLATELET COUNT AUTOMATED 170 10*3/uL (130-400); RED CELL DISTRI WIDTH 17.6 % (0-14.5); WHITE BLOOD COUNT 13.1 10*3/uL (4.8-10.8)
[2018-03-30 06:38] LABS: CREATININE 2.07 mg/dL (0.70-1.30); POTASSIUM 5.3 mmol/L (3.5-5.1)
[2018-03-30 07:18] LABS: TOTAL CELLS COUNTED 100 #CELLS
[2018-03-30 07:19] LABS: PLATELET SUFFICIENCY NORMAL (NORMAL); POLYCHROMASIA SLIGHT
[2018-03-30 08:00] VITALS: BP 132/83
[2018-03-30 12:00] VITALS: BP 108/52
[2018-03-30 16:00] VITALS: BP 131/70
[2018-03-30 20:00] VITALS: BP 141/85
[2018-03-31] VITALS: BP 129/80
[2018-03-31 06:56] LABS: BASO % 0.4 % (0.0-1.0); EOS # 0.2 10*3/uL (0.0-0.4); EOS % 1.9 % (1.0-4.0); HEMATOCRIT 28.4 % (42.0-52.0); HEMOGLOBIN 9.1 g/dl (14.0-18.0); LYMPH # 1.1 10*3/uL (1.3-4.4); LYMPH % 11.8 % (27.0-41.0); MEAN CORPUSCULAR HGB 29.2 pg (27.0-31.0); MEAN PLATELET VOLUME 9.8 fl (9.6-12.3); MONO % 10.8 % (3.0-9.0); NEUT # 6.9 10*3/uL (2.3-7.9); NEUT % 73.2 % (47.0-73.0); PLATELET COUNT AUTOMATED 151 10*3/uL (130-400); RED BLOOD COUNT 3.12 10*6/uL (4.50-5.90); RED CELL DISTRI WIDTH 17.6 % (0-14.5); WHITE BLOOD COUNT 9.4 10*3/uL (4.8-10.8)
[2018-03-31 07:22] LABS: ALBUMIN 2.5 gm/dl (3.1-4.5); CREATININE 1.66 mg/dL (0.70-1.30); POTASSIUM 4.6 mmol/L (3.5-5.1); TOTAL PROTEIN 6.6 gm/dL (6.4-8.2)
[2018-03-31 08:00] VITALS: BP 135/77
[2018-03-31] MEDS ORDERED: LEVAQUIN750 M1 PO (12:31)
[2018-04-28] MEDS ORDERED: LIDODERM1 EACH TD (15:34)
[2018-04-28] MEDS ORDERED: Percocet 325 MG1 TAB PO (15:35)
[2018-05-02] MEDS ORDERED: LACTINEX 0.2 MG1 TAB PO (16:19)
[2018-05-02] MEDS ORDERED: Duragesic 50 M50 MCG T (16:19)
== END 2018-03-31 13:42 | disposition home or self-care (01) | DRG 393 ==
LOC: ED 15:45 → EDHOLD 19:10 → 5E 19:10
PROVIDERS: Internal Medicine; Physician Assistant
DX: K52.1 Toxic gastroenteritis and colitis (principal); N17.0 Acute kidney failure with tubular necrosis; E43 Unspecified severe protein-calorie malnutrition; J18.1 Lobar pneumonia, unspecified organism; C64.2 Malignant neoplasm of left kidney, except renal pelvis; I50.32 Chronic diastolic (congestive) heart failure; F33.9 Major depressive disorder, recurrent, unspecified; I13.0 Hypertensive heart and chronic kidney disease with heart failure and stage 1 through stage 4 chronic kidney disease, or unspecified chronic kidney disease; N18.3 Chronic kidney disease, stage 3 (moderate); M89.9 Disorder of bone, unspecified; T45.1X5A Adverse effect of antineoplastic and immunosuppressive drugs, initial encounter; Y95 Nosocomial condition; E86.0 Dehydration; R79.89 Other specified abnormal findings of blood chemistry; D72.829 Elevated white blood cell count, unspecified; I25.10 Atherosclerotic heart disease of native coronary artery without angina pectoris; D64.9 Anemia, unspecified; E11.65 Type 2 diabetes mellitus with hyperglycemia; E78.5 Hyperlipidemia, unspecified; E03.9 Hypothyroidism, unspecified; E55.9 Vitamin D deficiency, unspecified; E53.8 Deficiency of other specified B group vitamins; K21.9 Gastro-esophageal reflux disease without esophagitis; E11.22 Type 2 diabetes mellitus with diabetic chronic kidney disease; E66.9 Obesity, unspecified; Z90.49 Acquired absence of other specified parts of digestive tract; Z79.899 Other long term (current) drug therapy; Z90.89 Acquired absence of other organs; Y92.89 Other specified places as the place of occurrence of the external cause; Z90.79 Acquired absence of other genital organ(s); Z90.5 Acquired absence of kidney; Z95.5 Presence of coronary angioplasty implant and graft; Z87.891 Personal history of nicotine dependence; Z84.89 Family history of other specified conditions; Z80.8 Family history of malignant neoplasm of other organs or systems; Z85.46 Personal history of malignant neoplasm of prostate; Z90.2 Acquired absence of lung [part of]; Z80.42 Family history of malignant neoplasm of prostate; Z68.29 Body mass index [BMI] 29.0-29.9, adult

== ENCOUNTER 2018-04-10 10:59 | Inpatient (IN) | payer MEDICARE, BC ==
[2018-04-10] VITALS (9 sets, daily range): BP systolic 78–100; BP diastolic 40–62
[~2018-04-10] VITALS: Ht 182.9 cm; Wt 71.4 kg
--- NOTE | ~2018-04-10 | PR ---
[place], [place] PROGRESS NOTE NAME: CAITLIN CONNELLY UNIT #: [id number] ROOM: 508 DOCTOR: MAKAYLA GOODWIN MD BIRTHDATE: [birth year] DOS: 04/15/2018 SUBJECTIVE: The patient was seen and examined. He is awake, alert. Sitting in a chair. Denies shortness breath, nausea or vomiting. States his stools are improving and less watery. PHYSICAL EXAMINATION: VITAL SIGNS: Showed temperature 98.1, pulse 72, respiration rate 17, blood pressure 113/70. HEENT: Shows no JVD. LUNGS: Diminished breath sounds. No wheeze. HEART: S1, S2. No rub, thrill or gallop. ABDOMEN: Soft, nontender. EXTREMITIES: Showed no edema. SKIN: Showed no rash. LABORATORY DATA: Hemoglobin 8.3, white count 7.3, platelets 167. Sodium 136, potassium 3.6, CO2 of 26, BUN 36, creatinine 2.15, glucose 111, calcium 8.7. IMPRESSION: 1. Acute on chronic kidney disease, likely prerenal. The patient's renal function is improving. Continue to follow labs while in the hospital. Replace electrolytes as needed. Avoid nephrotoxic agents. Encourage oral fluids. 2. Clostridium difficile. Continue oral vancomycin. 3. Anemia. H and H is stable. Transfuse as needed. 4. Hypothyroidism. Continue Synthroid. MAKAYLA GOODWIN MD CM:PNTRANS [phone] MAKAYLA GOODWIN MD 05/01/18 0746 interface
--- NOTE | ~2018-04-10 | EKG ---
[place], [place] ELECTROCARDIOGRAM REPORT NAME: CAITLIN CONNELLY UNIT #: [id number] ROOM: 508 DOCTOR: CISCO DRAFT REPORT BIRTHDATE: [birth year] [facility] Test Date: 2018-04-10 Test Time: 11:06:45 Pat Name: CAITLIN CONNELLY Department: Room: [facility] Gender: M Soapstoner: Deborah Gomez : 1950 Requested By: LYLY CHAVES Order Number: [id number] Reading MD: Kinaa Robledo MD Measurements Intervals [place] Rate: 87 P: 38 OK: 208 QRS: 94 QRSD: 154 T: -17 QT: 447 QTc: 538 Interpretive Statements Sinus rhythm Right bundle branch block Compared to ECG 01/26/2018 16:03:52 First degree AV block no longer present Electronically Signed On 04-14-2018 12:02:19 PDT by Kiana Robledo MD CM:EKGRPT:ELECTROCARDIOGRAM REPORT 1106 1202 LYLY PECK DRAFT REPORT LYLY CHAVES MD
--- NOTE | ~2018-04-10 | PR ---
[place], [place] PROGRESS NOTE [id number] #: [id number] ROOM: 508 DOCTOR: MAKAYLA GOODWIN MD BIRTHDATE: [birth year] DOS: SUBJECTIVE: The patient was seen and examined. He is awake and alert. He feels well. Denies nausea or vomiting. His diarrhea has been subsiding. PHYSICAL EXAMINATION: VITAL SIGNS: Temperature 98.6, pulse 80, respiratory rate 18, blood pressure is 116/78. HEENT: Shows no JVD. LUNGS: Clear. HEART: S1, S2. No rub. ABDOMEN: Soft, nontender. EXTREMITIES: Showed no edema. SKIN: No rash. LABORATORY DATA: Hemoglobin 9.4, white count 11.1, platelets 209. Sodium 140, potassium 3.5, CO2 of 26, BUN 33, creatinine 1.7, glucose 121, calcium 9.0. ASSESSMENT AND PLAN: 1. Acute on chronic kidney disease. The patient continues to have improving renal function. Acute kidney injury is likely due to prerenal factors. Replace electrolytes as needed. Encourage oral fluids. 2. Clostridium difficile. Continue oral vancomycin. 3. Anemia. H and H is stable. Transfuse p.r.n. 4. Hypothyroidism. Continue Synthroid. MAKAYLA GOODWIN MD CM:PNTRANS [phone] MAKAYLA GOODWIN MD 04/17/18 0309 interface
--- NOTE | ~2018-04-10 | EKG ---
[place], [place] ELECTROCARDIOGRAM REPORT NAME: CAITLIN CONNELLY UNIT #: [id number] ROOM: 508 DOCTOR: CISCO DRAFT REPORT BIRTHDATE: [birth year] [facility] Test Date: 2018-04-10 Test Time: 17:42:11 Pat Name: CAITLIN CONNELLY Department: Room: [facility] Gender: M Lsw: Deborah Gomez : 1950 Requested By: LYLY CHAVES Order Number: [id number] Reading MD: Kiana Robledo MD Measurements Intervals [place] Rate: 83 P: 0 NV: 164 QRS: 35 QRSD: 143 T: -17 QT: 449 QTc: 528 Interpretive Statements Sinus rhythm Ventricular premature complex Right bundle branch block Borderline ST depression, lateral leads Compared to ECG 01/26/2018 16:03:52 Ventricular premature complex(es) now present ST (T wave) deviation now present First degree AV block no longer present Electronically Signed On 04-14-2018 12:04:56 PDT by Kiana Robledo MD CM:EKGRPT:ELECTROCARDIOGRAM REPORT [id number] 1204 LYLY PECK DRAFT REPORT LYLY CHAVES MD
--- NOTE | ~2018-04-10 | EKG ---
[place], [place] ELECTROCARDIOGRAM REPORT NAME: CAITLIN CONNELLY UNIT #: [id number] ROOM: 8 DOCTOR: CISCO DRAFT REPORT BIRTHDATE: [birth year] [facility] Test Date: 2018-04-10 Test Time: 14:13:52 Pat Name: CAITLIN CONNELLY Department: Room: [facility] Gender: M Superintendent Plant: Deborah Gomez : 1950 Requested By: LYLY CHAVES Order Number: [id number] Reading MD: Kiana Robledo MD Measurements Intervals [place] Rate: 76 P: 33 HI: 214 QRS: 49 QRSD: 153 T: -3 QT: 482 QTc: 543 Interpretive Statements Sinus rhythm Ventricular premature complex Borderline prolonged HI interval Right bundle branch block Borderline ST depression, lateral leads Baseline wander in lead(s) I,II,aVR Compared to ECG 01/26/2018 16:03:52 Ventricular premature complex(es) now present ST (T wave) deviation now present Electronically Signed On 04-14-2018 12:04:01 PDT by Kiana Robledo MD CM:EKGRPT:ELECTROCARDIOGRAM REPORT 1413 1204 LYLY PECK DRAFT REPORT LYLY CHAVES MD
[~2018-04-10 10:59] MED LIST changes: +CABOMETYX40 MG PO; +LEVAQUIN750 M1 PO
[2018-04-10 11:30] LABS: HEMATOCRIT 36.9 % (42.0-52.0); HEMOGLOBIN 11.9 g/dl (14.0-18.0); MEAN CELL VOLUME 89.1 fl (80.0-94.0); MEAN CORPUSCULAR HGB 28.7 pg (27.0-31.0); MEAN CORPUSCULAR HGB CONC 32.2 g/dl (33.0-37.0); MEAN PLATELET VOLUME 10.3 fl (9.6-12.3); NUCLEATED RED BLOOD CELL 0.2 % (0.0-0.0); PLATELET COUNT AUTOMATED 386 10*3/uL (130-400); RED BLOOD COUNT 4.14 10*6/uL (4.50-5.90); RED CELL DISTRI WIDTH 17.2 % (0-14.5); WHITE BLOOD COUNT 23.9 10*3/uL (4.8-10.8)
[2018-04-10 11:38] LABS: ACT PARTIAL THROMBO TIME 28.9 SECONDS (20.8-31.5)
[2018-04-10 11:45] LABS: ALBUMIN 3.1 gm/dl (3.1-4.5); CREATININE 8.55 mg/dL (0.70-1.30); TOTAL PROTEIN 8.9 gm/dL (6.4-8.2)
[2018-04-10 11:57] LABS: PLATELET SUFFICIENCY NORMAL (NORMAL); POLYCHROMASIA SLIGHT; ROULEAUX MODERATE; TOTAL CELLS COUNTED 100 #CELLS
[2018-04-10 16:15] LABS: CREATININE 7.65 mg/dL (0.70-1.30); POTASSIUM 3.3 mmol/L (3.5-5.1)
[2018-04-10 21:46] LABS: BILIRUBIN 1+ (NEGATIVE); BLOOD TRACE-INTACT (NEGATIVE); CLARITY SL CLOUDY (CLEAR); COLOR YELLOW (YELLOW); GLUCOSE NEGATIVE (NEGATIVE); KETONE TRACE (NEGATIVE); LEUKO ESTERASE NEGATIVE (NEGATIVE); NITRITE NEGATIVE (NEGATIVE); SPECIFIC GRAVITY >= 1.030 (1.005-1.030); UROBILINOGEN 0.2 E.U./dl (0.2-1.0)
[2018-04-10 21:50] LABS: BACTERIA 2+; EPITHELIAL CELLS 21-30; MUCOUS TRACE; RBC 0-2 rbc/hpf (0-2); WBC 16-20 wbc/hpf (0-5)
[2018-04-11] VITALS (7 sets, daily range): BP systolic 78–112; BP diastolic 40–63
[2018-04-11 06:11] LABS: ALBUMIN 2.5 gm/dl (3.1-4.5); CREATININE 7.86 mg/dL (0.70-1.30); PHOSPHOROUS 7.2 mg/dL (2.5-4.9); POTASSIUM 2.8 mmol/L (3.5-5.1); TOTAL PROTEIN 6.7 gm/dL (6.4-8.2)
[2018-04-11 07:33] LABS: BASO % 0.2 % (0.0-1.0); EOS # 0.2 10*3/uL (0.0-0.4); EOS % 1.4 % (1.0-4.0); LYMPH # 1.1 10*3/uL (1.3-4.4); LYMPH % 10.2 % (27.0-41.0); MEAN CELL VOLUME 87.8 fl (80.0-94.0); MEAN CORPUSCULAR HGB 28.7 pg (27.0-31.0); MEAN CORPUSCULAR HGB CONC 32.7 g/dl (33.0-37.0); MEAN PLATELET VOLUME 10.1 fl (9.6-12.3); MONO # 1.5 10*3/uL (0.1-1.0); MONO % 14.3 % (3.0-9.0); NEUT # 7.6 10*3/uL (2.3-7.9); NEUT % 73.1 % (47.0-73.0); RED BLOOD COUNT 3.03 10*6/uL (4.50-5.90); WHITE BLOOD COUNT 10.4 10*3/uL (4.8-10.8)
[2018-04-11 07:37] LABS: HEMATOCRIT 26.6 % (42.0-52.0); HEMOGLOBIN 8.7 g/dl (14.0-18.0); PLATELET COUNT AUTOMATED 206 10*3/uL (130-400)
[2018-04-12] VITALS: BP 97/58
[2018-04-12 04:00] VITALS: BP 104/57
[2018-04-12 06:03] LABS: CREATININE 6.5 mg/dL (0.70-1.30); PHOSPHOROUS 5.1 mg/dL (2.5-4.9); POTASSIUM 3.3 mmol/L (3.5-5.1)
[2018-04-12 06:14] LABS: HEMATOCRIT 26.4 % (42.0-52.0); HEMOGLOBIN 8.1 g/dl (14.0-18.0); MEAN CELL VOLUME 90.1 fl (80.0-94.0); MEAN CORPUSCULAR HGB 27.6 pg (27.0-31.0); MEAN CORPUSCULAR HGB CONC 30.7 g/dl (33.0-37.0); MEAN PLATELET VOLUME 10.4 fl (9.6-12.3); NUCLEATED RED BLOOD CELL 0.2 % (0.0-0.0); PLATELET COUNT AUTOMATED 182 10*3/uL (130-400); RED BLOOD COUNT 2.93 10*6/uL (4.50-5.90); RED CELL DISTRI WIDTH 16.9 % (0-14.5); WHITE BLOOD COUNT 8.2 10*3/uL (4.8-10.8)
[2018-04-12 07:35] LABS: BURR CELLS MODERATE; POLYCHROMASIA SLIGHT; ROULEAUX MODERATE; TOTAL CELLS COUNTED 100 #CELLS
[2018-04-12 07:36] LABS: PLATELET SUFFICIENCY NORMAL (NORMAL)
[2018-04-12 08:00] VITALS: BP 113/65
[2018-04-12 12:00] VITALS: BP 101/63
[2018-04-12 16:00] VITALS: BP 116/69
[2018-04-12 20:00] VITALS: BP 134/74
[2018-04-13] VITALS: BP 140/80
[2018-04-13 06:20] LABS: HEMATOCRIT 24.1 % (42.0-52.0); MEAN CELL VOLUME 87.6 fl (80.0-94.0); MEAN CORPUSCULAR HGB 29.1 pg (27.0-31.0); MEAN CORPUSCULAR HGB CONC 33.2 g/dl (33.0-37.0); MEAN PLATELET VOLUME 10.2 fl (9.6-12.3); NUCLEATED RED BLOOD CELL 0.5 % (0.0-0.0); PLATELET COUNT AUTOMATED 170 10*3/uL (130-400); RED BLOOD COUNT 2.75 10*6/uL (4.50-5.90); RED CELL DISTRI WIDTH 16.8 % (0-14.5); WHITE BLOOD COUNT 6.1 10*3/uL (4.8-10.8)
[2018-04-13 06:39] LABS: ALBUMIN 2.9 gm/dl (3.1-4.5); CREATININE 4.12 mg/dL (0.70-1.30); PHOSPHOROUS 4.1 mg/dL (2.5-4.9)
[2018-04-13 07:22] LABS: BASOPHILS 1 % (0-1); PLATELET SUFFICIENCY NORMAL (NORMAL); POLYCHROMASIA SLIGHT; ROULEAUX MODERATE; TOTAL CELLS COUNTED 100 #CELLS
[2018-04-13 08:00] VITALS: BP 102/54
[2018-04-13 12:00] VITALS: BP 145/79
[2018-04-13 16:00] VITALS: BP 121/68
[2018-04-13 20:00] VITALS: BP 136/82
[2018-04-14] VITALS: BP 112/60
[2018-04-14 06:53] LABS: HEMATOCRIT 28.8 % (42.0-52.0); HEMOGLOBIN 9.1 g/dl (14.0-18.0); MEAN CORPUSCULAR HGB 28.4 pg (27.0-31.0); MEAN CORPUSCULAR HGB CONC 31.6 g/dl (33.0-37.0); MEAN PLATELET VOLUME 9.5 fl (9.6-12.3); NUCLEATED RED BLOOD CELL 0.4 % (0.0-0.0); PLATELET COUNT AUTOMATED 190 10*3/uL (130-400); RED CELL DISTRI WIDTH 17.1 % (0-14.5)
[2018-04-14 07:10] LABS: CREATININE 2.72 mg/dL (0.70-1.30); POTASSIUM 3.4 mmol/L (3.5-5.1)
[2018-04-14 07:53] LABS: ROULEAUX MODERATE; TOTAL CELLS COUNTED 100 #CELLS
[2018-04-14 07:54] LABS: POLYCHROMASIA SLIGHT; SCHISTOCYTES FEW; SPHEROCYTES FEW
[2018-04-14 07:55] LABS: PLATELET SUFFICIENCY NORMAL (NORMAL)
[2018-04-14 08:00] VITALS: BP 102/60
[2018-04-14 08:50] VITALS: BP 150/76
[2018-04-14 12:00] VITALS: BP 104/74; BP 82/53
[2018-04-14 16:00] VITALS: BP 107/73
[2018-04-14 20:00] VITALS: BP 132/85
[2018-04-15] VITALS: BP 125/73
[2018-04-15 05:58] LABS: HEMATOCRIT 26.1 % (42.0-52.0); HEMOGLOBIN 8.3 g/dl (14.0-18.0); MEAN CELL VOLUME 91.3 fl (80.0-94.0); MEAN CORPUSCULAR HGB CONC 31.8 g/dl (33.0-37.0); MEAN PLATELET VOLUME 9.8 fl (9.6-12.3); NUCLEATED RED BLOOD CELL 0.1 10*3/uL (0.0-0.0); NUCLEATED RED BLOOD CELL 0.7 % (0.0-0.0); PLATELET COUNT AUTOMATED 167 10*3/uL (130-400); RED BLOOD COUNT 2.86 10*6/uL (4.50-5.90); RED CELL DISTRI WIDTH 17.1 % (0-14.5); WHITE BLOOD COUNT 7.3 10*3/uL (4.8-10.8)
[2018-04-15 06:17] LABS: CREATININE 2.15 mg/dL (0.70-1.30); POTASSIUM 3.6 mmol/L (3.5-5.1)
[2018-04-15 07:03] LABS: TOTAL CELLS COUNTED 100 #CELLS
[2018-04-15 07:04] LABS: PLATELET SUFFICIENCY NORMAL (NORMAL); ROULEAUX SLIGHT
[2018-04-15 07:05] LABS: OVALOCYTES FEW; POLYCHROMASIA SLIGHT
[2018-04-15 12:00] VITALS: BP 113/80
[2018-04-15 16:00] VITALS: BP 151/86
[2018-04-15 20:00] VITALS: BP 140/86
[2018-04-16] VITALS: BP 125/64
[2018-04-16 05:58] LABS: HEMATOCRIT 29.7 % (42.0-52.0); HEMOGLOBIN 9.4 g/dl (14.0-18.0); MEAN CORPUSCULAR HGB 29.1 pg (27.0-31.0); MEAN CORPUSCULAR HGB CONC 31.6 g/dl (33.0-37.0); MEAN PLATELET VOLUME 9.7 fl (9.6-12.3); NUCLEATED RED BLOOD CELL 0.1 10*3/uL (0.0-0.0); NUCLEATED RED BLOOD CELL 0.5 % (0.0-0.0); PLATELET COUNT AUTOMATED 209 10*3/uL (130-400); RED BLOOD COUNT 3.23 10*6/uL (4.50-5.90); RED CELL DISTRI WIDTH 17.2 % (0-14.5); WHITE BLOOD COUNT 11.1 10*3/uL (4.8-10.8)
[2018-04-16 06:13] LABS: CREATININE 1.73 mg/dL (0.70-1.30); POTASSIUM 3.5 mmol/L (3.5-5.1)
[2018-04-16 06:39] LABS: PLATELET SUFFICIENCY NORMAL (NORMAL); TOTAL CELLS COUNTED 100 #CELLS
[2018-04-16 06:40] LABS: POLYCHROMASIA SLIGHT
[2018-04-16 06:41] LABS: OVALOCYTES FEW
[2018-04-16 08:00] VITALS: BP 118/62
[2018-04-16 12:00] VITALS: BP 116/78
[2018-04-16 16:00] VITALS: BP 154/82
[2018-04-16 20:00] VITALS: BP 132/82
[2018-04-17] VITALS: BP 145/73
[2018-04-17 06:54] LABS: HEMATOCRIT 24.9 % (42.0-52.0); HEMOGLOBIN 8.1 g/dl (14.0-18.0); MEAN CELL VOLUME 90.9 fl (80.0-94.0); MEAN CORPUSCULAR HGB 29.6 pg (27.0-31.0); MEAN CORPUSCULAR HGB CONC 32.5 g/dl (33.0-37.0); MEAN PLATELET VOLUME 9.4 fl (9.6-12.3); NUCLEATED RED BLOOD CELL 0.2 % (0.0-0.0); PLATELET COUNT AUTOMATED 160 10*3/uL (130-400); RED BLOOD COUNT 2.74 10*6/uL (4.50-5.90); RED CELL DISTRI WIDTH 17.2 % (0-14.5); WHITE BLOOD COUNT 10.6 10*3/uL (4.8-10.8)
[2018-04-17 07:15] LABS: CREATININE 1.56 mg/dL (0.70-1.30); POTASSIUM 3.7 mmol/L (3.5-5.1)
[2018-04-17 07:29] LABS: TOTAL CELLS COUNTED 100 #CELLS
[2018-04-17 07:30] LABS: POLYCHROMASIA SLIGHT
[2018-04-17 07:31] LABS: PLATELET SUFFICIENCY NORMAL (NORMAL)
[2018-04-17 08:00] VITALS: BP 144/80
[2018-04-17 12:00] VITALS: BP 148/82
[2018-04-17] MEDS ORDERED: VANCOMYCIN HCL125 MG PO (12:13)
[2018-04-28] MEDS ORDERED: LIDODERM1 EACH TD (15:34)
[2018-04-28] MEDS ORDERED: Percocet 325 MG1 TAB PO (15:35)
[2018-05-02] MEDS ORDERED: Duragesic 50 M50 MCG T (16:19)
[2018-05-02] MEDS ORDERED: LACTINEX 0.2 MG1 TAB PO (16:19)
== END 2018-04-17 14:02 | disposition home or self-care (01) | DRG 871 ==
LOC: ED 10:59 → EDHOLD 12:39 → ICCU 12:39 → 5E 04-12 18:14
PROVIDERS: Emergency Medicine; Internal Medicine
DX: A41.9 Sepsis, unspecified organism (principal); N17.0 Acute kidney failure with tubular necrosis; J96.01 Acute respiratory failure with hypoxia; R65.21 Severe sepsis with septic shock; E87.2 Acidosis; C64.1 Malignant neoplasm of right kidney, except renal pelvis; C79.9 Secondary malignant neoplasm of unspecified site; I50.32 Chronic diastolic (congestive) heart failure; I13.0 Hypertensive heart and chronic kidney disease with heart failure and stage 1 through stage 4 chronic kidney disease, or unspecified chronic kidney disease; K52.1 Toxic gastroenteritis and colitis; A04.72 Enterocolitis due to Clostridium difficile, not specified as recurrent; I95.9 Hypotension, unspecified; E87.6 Hypokalemia; N18.3 Chronic kidney disease, stage 3 (moderate); E86.0 Dehydration; T45.1X5A Adverse effect of antineoplastic and immunosuppressive drugs, initial encounter; D64.9 Anemia, unspecified; E11.65 Type 2 diabetes mellitus with hyperglycemia; E11.22 Type 2 diabetes mellitus with diabetic chronic kidney disease; F32.9 Major depressive disorder, single episode, unspecified; E03.9 Hypothyroidism, unspecified; E78.2 Mixed hyperlipidemia; E83.39 Other disorders of phosphorus metabolism; K21.9 Gastro-esophageal reflux disease without esophagitis; M84.454D Pathological fracture, pelvis, subsequent encounter for fracture with routine healing; E53.8 Deficiency of other specified B group vitamins; Y92.89 Other specified places as the place of occurrence of the external cause; Z90.49 Acquired absence of other specified parts of digestive tract; Z90.5 Acquired absence of kidney; Z87.891 Personal history of nicotine dependence; Z80.7 Family history of other malignant neoplasms of lymphoid, hematopoietic and related tissues; Z95.5 Presence of coronary angioplasty implant and graft; Z79.899 Other long term (current) drug therapy

== ENCOUNTER → 2018-04-25 | Outpatient (CLI) | payer MEDICARE, BC ==
[~2018-04-25] MED LIST changes: +Duragesic 50 M50 MCG T; +LACTINEX 0.2 MG1 TAB PO; +LIDODERM1 EACH TD; +Percocet 325 MG1 TAB PO; +VANCOMYCIN HCL125 MG PO
== END | disposition home or self-care (01) ==
LOC: RESCLI 08:15
DX: I10 Essential (primary) hypertension (principal); C79.51 Secondary malignant neoplasm of bone; E78.2 Mixed hyperlipidemia; E03.8 Other specified hypothyroidism; K21.9 Gastro-esophageal reflux disease without esophagitis; E11.9 Type 2 diabetes mellitus without complications; F33.9 Major depressive disorder, recurrent, unspecified; A04.72 Enterocolitis due to Clostridium difficile, not specified as recurrent; R19.7 Diarrhea, unspecified; R11.2 Nausea with vomiting, unspecified; E03.9 Hypothyroidism, unspecified; Z79.899 Other long term (current) drug therapy

== ENCOUNTER → 2018-05-09 | Outpatient (CLI) | payer MEDICARE, BC | END | disposition home or self-care (01) | LOC: RESCLI 04:14 | DX: I10 Essential (primary) hypertension (principal); C79.51 Secondary malignant neoplasm of bone; A04.72 Enterocolitis due to Clostridium difficile, not specified as recurrent; E78.5 Hyperlipidemia, unspecified; F32.9 Major depressive disorder, single episode, unspecified; E03.9 Hypothyroidism, unspecified; K21.9 Gastro-esophageal reflux disease without esophagitis; R11.2 Nausea with vomiting, unspecified; E53.8 Deficiency of other specified B group vitamins; E55.9 Vitamin D deficiency, unspecified; E66.09 Other obesity due to excess calories; Z68.32 Body mass index [BMI] 32.0-32.9, adult; Z79.899 Other long term (current) drug therapy; Z87.891 Personal history of nicotine dependence; Z88.8 Allergy status to other drugs, medicaments and biological substances ==

== ENCOUNTER → 2018-06-09 | Outpatient (CLI) | payer MEDICARE, BC | END | disposition home or self-care (01) | LOC: RESCLI 01:26 | DX: C79.51 Secondary malignant neoplasm of bone (principal); I13.0 Hypertensive heart and chronic kidney disease with heart failure and stage 1 through stage 4 chronic kidney disease, or unspecified chronic kidney disease; N18.3 Chronic kidney disease, stage 3 (moderate); I50.9 Heart failure, unspecified; A04.72 Enterocolitis due to Clostridium difficile, not specified as recurrent; E78.5 Hyperlipidemia, unspecified; F32.9 Major depressive disorder, single episode, unspecified; E03.9 Hypothyroidism, unspecified; K21.9 Gastro-esophageal reflux disease without esophagitis; R11.2 Nausea with vomiting, unspecified; E53.8 Deficiency of other specified B group vitamins; E55.9 Vitamin D deficiency, unspecified; E66.09 Other obesity due to excess calories; Z90.49 Acquired absence of other specified parts of digestive tract; Z68.32 Body mass index [BMI] 32.0-32.9, adult; Z79.899 Other long term (current) drug therapy; Z87.891 Personal history of nicotine dependence ==

== ENCOUNTER → 2018-06-21 | Outpatient (CLI) | payer MEDICARE, BC ==
[2018-06-21 15:59] LABS: HEMATOCRIT 29.1 % (42.0-52.0); HEMOGLOBIN 8.9 g/dl (14.0-18.0); MEAN CELL VOLUME 86.1 fl (80.0-94.0); MEAN CORPUSCULAR HGB 26.3 pg (27.0-31.0); MEAN CORPUSCULAR HGB CONC 30.6 g/dl (33.0-37.0); MEAN PLATELET VOLUME 10.3 fl (9.6-12.3); NUCLEATED RED BLOOD CELL 0.2 % (0.0-0.0); PLATELET COUNT AUTOMATED 244 10*3/uL (130-400); RED BLOOD COUNT 3.38 10*6/uL (4.50-5.90); RED CELL DISTRI WIDTH 16.1 % (0-14.5); WHITE BLOOD COUNT 9.4 10*3/uL (4.8-10.8)
[2018-06-21 16:54] LABS: PLATELET SUFFICIENCY NORMAL (NORMAL); TOTAL CELLS COUNTED 100 #CELLS
== END | disposition home or self-care (01) ==
PROVIDERS: Student in an Organized Health Care Education/Training Program
DX: A04.72 Enterocolitis due to Clostridium difficile, not specified as recurrent (principal)

== ENCOUNTER → 2018-07-04 | Outpatient (CLI) | payer MEDICARE, BC | END | disposition home or self-care (01) | LOC: RESCLI 13:55 | DX: I13.0 Hypertensive heart and chronic kidney disease with heart failure and stage 1 through stage 4 chronic kidney disease, or unspecified chronic kidney disease (principal); E11.22 Type 2 diabetes mellitus with diabetic chronic kidney disease; N18.3 Chronic kidney disease, stage 3 (moderate); I50.9 Heart failure, unspecified; C64.9 Malignant neoplasm of unspecified kidney, except renal pelvis; E66.9 Obesity, unspecified; C79.51 Secondary malignant neoplasm of bone; A04.72 Enterocolitis due to Clostridium difficile, not specified as recurrent; E44.0 Moderate protein-calorie malnutrition; R60.9 Edema, unspecified; E78.5 Hyperlipidemia, unspecified; K21.9 Gastro-esophageal reflux disease without esophagitis; E03.9 Hypothyroidism, unspecified; Z90.49 Acquired absence of other specified parts of digestive tract; Z88.8 Allergy status to other drugs, medicaments and biological substances; Z79.899 Other long term (current) drug therapy; Z87.891 Personal history of nicotine dependence ==

== ENCOUNTER → 2018-09-04 | Outpatient (CLI) | payer MEDICARE, BC | END | disposition home or self-care (01) | LOC: RESCLI 12:39 | DX: I13.0 Hypertensive heart and chronic kidney disease with heart failure and stage 1 through stage 4 chronic kidney disease, or unspecified chronic kidney disease (principal); E11.22 Type 2 diabetes mellitus with diabetic chronic kidney disease; N18.3 Chronic kidney disease, stage 3 (moderate); I50.9 Heart failure, unspecified; C79.51 Secondary malignant neoplasm of bone; J18.0 Bronchopneumonia, unspecified organism; I25.10 Atherosclerotic heart disease of native coronary artery without angina pectoris; E78.5 Hyperlipidemia, unspecified; K21.9 Gastro-esophageal reflux disease without esophagitis; F17.200 Nicotine dependence, unspecified, uncomplicated; Z90.49 Acquired absence of other specified parts of digestive tract; Z79.899 Other long term (current) drug therapy ==

== ENCOUNTER 2018-10-18 11:16 | Emergency (ER) | payer MEDICARE, BC ==
[~2018-10-18] VITALS: Ht 182.8 cm; Wt 106.1 kg
[2018-10-18 12:41] VITALS: BP 136/80
== END 2018-10-18 14:55 | disposition home or self-care (01) ==
LOC: ED 11:16
DX: S40.011A Contusion of right shoulder, initial encounter (principal); S70.02XA Contusion of left hip, initial encounter; S00.93XA Contusion of unspecified part of head, initial encounter; C79.89 Secondary malignant neoplasm of other specified sites; Z79.899 Other long term (current) drug therapy; Z90.49 Acquired absence of other specified parts of digestive tract; Z87.891 Personal history of nicotine dependence; Z90.5 Acquired absence of kidney; W18.09XA Striking against other object with subsequent fall, initial encounter; Y93.89 Activity, other specified; Y92.096 Garden or yard of other non-institutional residence as the place of occurrence of the external cause; Y99.8 Other external cause status

== ENCOUNTER → 2018-12-12 | Outpatient (CLI) | payer MEDICARE, BC | END | disposition home or self-care (01) | LOC: RAD 16:52 | DX: M16.12 Unilateral primary osteoarthritis, left hip (principal); M17.12 Unilateral primary osteoarthritis, left knee; C79.51 Secondary malignant neoplasm of bone; M41.86 Other forms of scoliosis, lumbar region; R26.2 Difficulty in walking, not elsewhere classified ==

== ENCOUNTER → 2019-01-17 | Outpatient (CLI) | payer MEDICARE, BC | END | disposition home or self-care (01) | LOC: RESCLI 01:03 | DX: C79.51 Secondary malignant neoplasm of bone (principal); H90.3 Sensorineural hearing loss, bilateral; C44.42 Squamous cell carcinoma of skin of scalp and neck; C18.9 Malignant neoplasm of colon, unspecified; I71.2 Thoracic aortic aneurysm, without rupture; E78.2 Mixed hyperlipidemia; E03.8 Other specified hypothyroidism; K21.9 Gastro-esophageal reflux disease without esophagitis; E66.9 Obesity, unspecified; E11.9 Type 2 diabetes mellitus without complications; F32.9 Major depressive disorder, single episode, unspecified; C64.9 Malignant neoplasm of unspecified kidney, except renal pelvis; R91.1 Solitary pulmonary nodule; I13.0 Hypertensive heart and chronic kidney disease with heart failure and stage 1 through stage 4 chronic kidney disease, or unspecified chronic kidney disease; E11.22 Type 2 diabetes mellitus with diabetic chronic kidney disease; I50.30 Unspecified diastolic (congestive) heart failure; N18.3 Chronic kidney disease, stage 3 (moderate); Z79.899 Other long term (current) drug therapy; Z87.891 Personal history of nicotine dependence ==

== ENCOUNTER → 2019-03-27 | Outpatient (CLI) | payer MEDICARE, BC ==
[~2019-03-27] MED LIST changes: +ATIVAN1 MG PO; +BISACODYL10 MG SC; +CELEBREX100 MG PO; +DOLOPHINE HCL10 MG PO; +LOSARTAN POTASS50 M1 PO; +MELOXICAM7.5 MG PO; +METHADONE HYDRO40 M1 PO; +MILK OF MA400 MG/5 M PO; +MIRALAX17 GM PO; +MULTIVITAMINS1 EAC5 PO; +MYLANTA MAXIMU355 M1 PO; +Methadone Hydro10 MG PO; +NARCAN4 MG NAS; +NEURONTIN100 MG PO; +NORVASC5 MG PO; +OMEPRAZOLE MAGN20 MG PO; +OXYCODONE HCL10 M1 PO; +PREDNISONE10 M1 PO; +PROTONIX40 MG PO; +SENOKOT8.6 MG PO; -SERTRALINE HYD100 MG PO; +TOPROL XL25 MG PO; +TYLENOL EXTRA500 MG PO; +VITAMIN C500 M8 PO; +ZINC-220220 MG PO; +ZOFRAN4 MG PO
== END | disposition home or self-care (01) ==
LOC: RESCLI 11:46
DX: Z23 Encounter for immunization (principal)

== ENCOUNTER 2019-04-25 14:17 | Emergency (ER) | payer MEDICARE, BC ==
[~2019-04-25] VITALS: Ht 182.8 cm; Wt 95.7 kg
[~2019-04-25 14:17] MED LIST changes: -ATIVAN1 MG PO; -BISACODYL10 MG SC; -CELEBREX100 MG PO; -DOLOPHINE HCL10 MG PO; -LOSARTAN POTASS50 M1 PO; -MELOXICAM7.5 MG PO; -METHADONE HYDRO40 M1 PO; -MILK OF MA400 MG/5 M PO; -MIRALAX17 GM PO; -MULTIVITAMINS1 EAC5 PO; -MYLANTA MAXIMU355 M1 PO; -Methadone Hydro10 MG PO; -NARCAN4 MG NAS; -NEURONTIN100 MG PO; -NORVASC5 MG PO; -OMEPRAZOLE MAGN20 MG PO; -OXYCODONE HCL10 M1 PO; -PREDNISONE10 M1 PO; -PROTONIX40 MG PO; -SENOKOT8.6 MG PO; -TOPROL XL25 MG PO; -TYLENOL EXTRA500 MG PO; -VITAMIN C500 M8 PO; -ZINC-220220 MG PO; -ZOFRAN4 MG PO
[2019-04-25 14:58] LABS: HEMATOCRIT 31.5 % (42.0-52.0); HEMOGLOBIN 9.3 g/dl (14.0-18.0); MEAN CELL VOLUME 78.9 fl (80.0-94.0); MEAN CORPUSCULAR HGB 23.3 pg (27.0-31.0); MEAN CORPUSCULAR HGB CONC 29.5 g/dl (33.0-37.0); MEAN PLATELET VOLUME 9.5 fl (9.6-12.3); PLATELET COUNT AUTOMATED 167 10*3/uL (130-400); RED BLOOD COUNT 3.99 10*6/uL (4.50-5.90); RED CELL DISTRI WIDTH 18.4 % (0-14.5); WHITE BLOOD COUNT 10.7 10*3/uL (4.8-10.8)
[2019-04-25 15:08] LABS: ACT PARTIAL THROMBO TIME 23.4 SECONDS (20.0-32.1); INTERNATIONAL NORM RATIO 0.9 (2.0-3.5)
[2019-04-25 15:14] LABS: ALBUMIN 2.9 gm/dl (3.1-4.5); ALKALINE PHOSPHATASE 124 U/L (45-117); BUN 17 mg/dl (7-24); CHLORIDE 98 mmol/L (98-107); CREATININE 1.15 mg/dL (0.70-1.30); POTASSIUM 4.1 mmol/L (3.5-5.1); SGOT/AST 25 IU/L (3-35); SGPT/ALT 12 U/L (12-78); SODIUM 136 mmol/L (136-145); TOTAL PROTEIN 6.6 gm/dL (6.4-8.2)
[2019-04-25 15:18] LABS: TOTAL CELLS COUNTED 100 #CELLS
[2019-04-25 15:19] LABS: MICROCYTOSIS SLIGHT; OVALOCYTES FEW; PLATELET SUFFICIENCY NORMAL (NORMAL)
[2019-04-25 21:45] VITALS: BP 150/90
== END 2019-04-25 21:56 | disposition short-term general hospital (02) ==
LOC: ED 14:17
PROVIDERS: Physician Assistant
DX: S41.112A Laceration without foreign body of left upper arm, initial encounter (principal); S09.90XA Unspecified injury of head, initial encounter; M84.452A Pathological fracture, left femur, initial encounter for fracture; M25.562 Pain in left knee; M54.2 Cervicalgia; M54.5 Low back pain; R79.1 Abnormal coagulation profile; Z85.520 Personal history of malignant carcinoid tumor of kidney; Z85.830 Personal history of malignant neoplasm of bone; Z79.899 Other long term (current) drug therapy; Z87.891 Personal history of nicotine dependence; W01.198A Fall on same level from slipping, tripping and stumbling with subsequent striking against other object, initial encounter; Y93.89 Activity, other specified; Y92.098 Other place in other non-institutional residence as the place of occurrence of the external cause; Y99.8 Other external cause status

== ENCOUNTER 2019-05-09 06:29 | Inpatient (IN) | payer MEDICARE, BC ==
[~2019-05-09] VITALS: Ht 182.9 cm; Wt 97.8 kg
[2019-05-09] VITALS (11 sets, daily range): BP systolic 119–152; BP diastolic 56–95
[2019-05-09 06:50] LABS: HEMATOCRIT 25.3 % (42.0-52.0); HEMOGLOBIN 7.3 g/dl (14.0-18.0); MEAN CELL VOLUME 86.9 fl (80.0-94.0); MEAN CORPUSCULAR HGB 25.1 pg (27.0-31.0); MEAN CORPUSCULAR HGB CONC 28.9 g/dl (33.0-37.0); MEAN PLATELET VOLUME 9.5 fl (9.6-12.3); NUCLEATED RED BLOOD CELL 0.3 % (0.0-0.0); PLATELET COUNT AUTOMATED 215 10*3/uL (130-400); RED BLOOD COUNT 2.91 10*6/uL (4.50-5.90); RED CELL DISTRI WIDTH 19.5 % (0-14.5)
[2019-05-09 06:58] LABS: ACT PARTIAL THROMBO TIME 26.6 SECONDS (20.0-32.1); INTERNATIONAL NORM RATIO 0.9 (2.0-3.5)
[2019-05-09 07:02] LABS: ALBUMIN 2.1 gm/dl (3.1-4.5); ALKALINE PHOSPHATASE 130 U/L (45-117); BUN 22 mg/dl (7-24); CHLORIDE 110 mmol/L (98-107); CREATININE 1.09 mg/dL (0.70-1.30); SGOT/AST 30 IU/L (3-35); SGPT/ALT 13 U/L (12-78); SODIUM 141 mmol/L (136-145); TOTAL PROTEIN 5.9 gm/dL (6.4-8.2)
--- NOTE | 2019-05-09 07:04 | NUR ---
REPORT RECIEVED FROM BOILERMAKER MECHANIC. PT RESTING IN BED. SIDERAILS UP X2
[2019-05-09 07:06] LABS: TROPONIN I < 0.015 ng/ml (<0.045)
[2019-05-09 07:25] LABS: OVALOCYTES MODERATE; PLATELET SUFFICIENCY NORMAL (NORMAL); POLYCHROMASIA SLIGHT; TOTAL CELLS COUNTED 100 #CELLS
[2019-05-09] MEDS ORDERED: VITAMIN C500 M8 PO (09:31)
[2019-05-09] MEDS ORDERED: ATIVAN1 MG PO (09:32)
[2019-05-09] MEDS ORDERED: BISACODYL10 MG SC (09:34)
[2019-05-09] MEDS ORDERED: CELEBREX100 MG PO (09:35)
[2019-05-09] MEDS ORDERED: NEURONTIN100 MG PO (09:36)
[2019-05-09] MEDS ORDERED: MELOXICAM7.5 MG PO (09:46)
[2019-05-09] MEDS ORDERED: DOLOPHINE HCL10 MG PO (09:47)
[2019-05-09] MEDS ORDERED: TOPROL XL25 MG PO (09:49)
[2019-05-09] MEDS ORDERED: MIRALAX17 GM PO (09:50)
[2019-05-09] MEDS ORDERED: MILK OF MA400 MG/5 M PO (09:50)
[2019-05-09] MEDS ORDERED: MULTIVITAMINS1 EAC5 PO (09:51)
[2019-05-09] MEDS ORDERED: MYLANTA MAXIMU355 M1 PO (09:52)
[2019-05-09] MEDS ORDERED: NARCAN4 MG NAS (09:53)
[2019-05-09] MEDS ORDERED: OMEPRAZOLE MAGN20 MG PO (09:54)
[2019-05-09] MEDS ORDERED: OXYCODONE HCL10 M1 PO (09:56)
[2019-05-09] MEDS ORDERED: PROTONIX40 MG PO (09:57)
[2019-05-09] MEDS ORDERED: PREDNISONE10 M1 PO (09:58)
[2019-05-09] MEDS ORDERED: SENOKOT8.6 MG PO (09:59)
[2019-05-09] MEDS ORDERED: TYLENOL EXTRA500 MG PO (09:59)
[2019-05-09] MEDS ORDERED: ZINC-220220 MG PO (10:00)
[2019-05-09] MEDS ORDERED: ZOFRAN4 MG PO (10:00)
--- NOTE | 2019-05-09 10:06 | NUR ---
DAYLIN LANG NOTIFIED OF HOME MEDICATIONS UP TO DATE.
--- NOTE | 2019-05-09 10:08 | NUR ---
DAYLIN LANG NOTIFIED OF CRITICAL TROPONIN. NO NEW ORDERS AT THIS TIME.
--- NOTE | 2019-05-09 12:21 | NUR ---
Patient presents from [facility]. Per [facility] patient is able to return upon discharge. CITY EDITOR will send updates to [facility] when able. -CATY Jeffery
--- NOTE | 2019-05-09 12:37 | NUR ---
DAYLIN NOTIFIED OF NEED FOR WOUND ORDERS.
--- NOTE | 2019-05-09 12:53 | NUR ---
DAYLIN LANG NOTIFIED OF TROPONIN LEVEL. PT TO SEE DR. FERRARI/ THIS AFTERNOON PER HER.
--- NOTE | 2019-05-09 14:12 | NUR ---
Patient not available for Occupational Therapy evaluation as he is getting a platelets. Nazia Wall OTR/l
--- NOTE | 2019-05-09 23:10 | NUR ---
PRN OXY GIVEN FOR A PAIN LEVEL OF 10/10.
--- NOTE | 2019-05-09 23:27 | NUR ---
PT CALLED AND STATED THAT HE NEEDS HIS METHADONE NOW. ENTERED PT'S ROOM AND PT WAS FRANTICALLY STATED THAT HE CAN NOT WITHDRAWL AGAIN AND THAT HE NEEDS HIS METHADONE. I ASKED HOW OFTEN AND HOW MUCH DOES HE TAKE IT AND HE STATED THAT HE DOESN'T KNOW AND THAT HE JUST TAKES IT ABOUT 2-3 TIMES A DAY. I SEARCHED THROUGH PT'S PAPERWORK AND THERE WERE THREE ORDERS FOR HIS METHADONE BUT UNSPECIFIED FOR WHEN AND HOW MUCH HE SHOULD TAKE IT. CALLED [facility] TO GET DOSING AND FREQUENCY VERIFIED. [facility]PO[facility] AND SHE VERIFIED HIS [facility]ING. CALLED DR. ROONEY IN REGARDS TO MEDICATION VERIFICATION.
[2019-05-09] MEDS ORDERED: METHADONE HYDRO40 M1 PO (23:34)
[2019-05-09] MEDS ORDERED: Methadone Hydro10 MG PO (23:43)
--- NOTE | 2019-05-09 23:50 | NUR ---
PT'S LEFT FOREARM AND ELBOW, BUTTOCKS, AND LEFT HIP WOUND WERE ALL DRESSED PER WOUND CARE ORDERS.
[2019-05-10] VITALS (9 sets, daily range): BP systolic 123–164; BP diastolic 71–89
--- NOTE | 2019-05-10 00:30 | NUR ---
PRN OXY WAS EFFECTIVE. PT SHOWS NO SIGNS OF DISTRESS.
--- NOTE | 2019-05-10 04:13 | NUR ---
PRN OXY WAS GIVEN FOR A PAIN LEVEL OF 10/10. WILL REASSESS EFFECTIVENESS.
--- NOTE | 2019-05-10 05:15 | NUR ---
PRN OXY WAS EFFECTIVE. PT SHOWS NO SIGNS OF DISTRESS.
[2019-05-10 06:43] LABS: HEMATOCRIT 25.6 % (42.0-52.0); HEMOGLOBIN 7.3 g/dl (14.0-18.0); MEAN CELL VOLUME 87.1 fl (80.0-94.0); MEAN CORPUSCULAR HGB 24.8 pg (27.0-31.0); MEAN CORPUSCULAR HGB CONC 28.5 g/dl (33.0-37.0); MEAN PLATELET VOLUME 9.6 fl (9.6-12.3); NUCLEATED RED BLOOD CELL 0.3 % (0.0-0.0); PLATELET COUNT AUTOMATED 167 10*3/uL (130-400); RED BLOOD COUNT 2.94 10*6/uL (4.50-5.90); RED CELL DISTRI WIDTH 19.4 % (0-14.5); WHITE BLOOD COUNT 7.2 10*3/uL (4.8-10.8)
[2019-05-10 06:55] LABS: BUN 17 mg/dl (7-24); CHLORIDE 110 mmol/L (98-107); CHOLESTEROL 164 mg/dL (<200); CREATININE 0.94 mg/dL (0.70-1.30); PHOSPHOROUS 2.8 mg/dL (2.5-4.9); SGOT/AST 31 IU/L (3-35); SGPT/ALT 11 U/L (12-78); SODIUM 140 mmol/L (136-145); TOTAL PROTEIN 5.7 gm/dL (6.4-8.2); TRIGLYCERIDES 364 mg/dl (<150); VLDL CHOLESTEROL 73 mg/dL (6-40)
[2019-05-10 06:59] LABS: ALKALINE PHOSPHATASE 122 U/L (45-117); HDL CHOLESTEROL 32 mg/dl (40-60); LDL CHOLESTEROL 59 mg/dL (9-159)
[2019-05-10 07:36] LABS: PLATELET SUFFICIENCY NORMAL (NORMAL); ROULEAUX MODERATE; TOTAL CELLS COUNTED 100 #CELLS
[2019-05-10 09:11] LABS: VITAMIN D, 25-HYDROXY 18.7 ng/mL (30-100)
--- NOTE | 2019-05-10 10:30 | NUR ---
Occupational Therapy evaluation completed on 5 with full eval to follow. Precautions include left hip without hardware and NWB LLE,fall risk;bed alarm, skin risk, SOB w/min exertion in standing, right lung mass increased in size this admission,high complexity level 96913 via chart review, testing and evaluation. Recommend OT per POC and return to SNF to enable max level of ADLs and functional mobility for return home w/ . Thank you for this referral. Nazia Wall OTR/L
--- NOTE | 2019-05-10 10:54 | NUR ---
CAITLIN CONNELLY [id number] Please refer to the physician's history and physical for past medical history, comorbid conditions, and allergies. Diagnosis: CHEST PAIN Elgin Score: 15,AT RISK WOUND DESCRIPTIONS: Wound Number: 1 Location of the wound: LEFT THIGH Type of wound: SURGICAL Thickness: Partial Size: 33cm X 0.1cm X <0.1cm Tunneling: NONE Undermining: NONE Sinus Tract: NONE Presence of Exudate: NONE Amount: None Color: Tennyson Odor: None Periwound Skin Appearance: Normal Wound edges: WELL APPROXIMATED. Pain (associated with wound): DENIED AT TIME OF ASSESSMENT How does patient state this happened? PATIENT STATES THAT HE HAD SURGERY AT [facility] APPROXIMATELY 1 MONTH AGO PER PATIENT. Wound Number: 2 Location of the wound: LEFT BUTTOCK Type of wound: STAGE 2 Thickness: Partial Size: 1.5cm X 1.5cm X 0.1cm Tunneling: NONE Undermining: NONE Sinus Tract: NONE Presence of Exudate: Serous Amount: Light Color: Red Odor: None Periwound Skin Appearance: Erythema Wound edges: APPROXIMATED Pain (associated with wound): DENIED AT TIME OF ASSESSMENT How does patient state this happened? PATIENT IS UNUSRE HOW THIS HAPPENED. Wound Number: 3 Location of the wound: LEFT FOREARM Type of wound: SKIN TEAR Thickness: Partial Size: 2cm X 1.5cm X 0.1cm Tunneling: NONE Undermining: NONE Sinus Tract: NONE Presence of Exudate: Serous Amount: Light Color: Red Odor: None Periwound Skin Appearance: Erythema Wound edges: APPROXIMATED Pain (associated with wound): DENIED AT TIME OF ASSESSMENT How does patient state this happened? PATIENT STATES HE HIT THIS AREA ON THE WALL WHEN HE FELL AT HOME. Wound Number: 4 Location of the wound: LEFT ELBOW Type of wound: SKIN TEAR Thickness: Partial Size: 3.9cm X 2.3cm X 0.1cm Tunneling: NONE Undermining: NONE Sinus Tract: NONE Presence of Exudate: Serous Amount: Light Color: Red Odor: None Periwound Skin Appearance: Erythema Wound edges: APPROXIMATED Pain (associated with wound): DENIED AT TIME OF ASSESSMENT How does patient state this happened? PATIENT STATES THAT HE HIT THIS AREA ON THE WALL WHEN HE FELL AT HOME. Surface the patient is resting on: Isoflex SKIN PREVENTION RECOMMENDATION: 1. Pressure redistribution support surface as appropriate 2. Elevate heels 3. Remove boots/TEDS every shift and reapply 4. Head of bed 30 degrees as tolerated 5. Assess nutrition and hydration 6. Manage moisture 7. Avoid the use of containment devices while in bed 8. Use absorptive products on surfaces limit layers of linens on bed 9. Turn and reposition every 1-2 hours in bed and every 1 hour in chair as tolerated 10. Weight shifts every 15 minutes while up in chair 11. Offloading with pillows or device to keep heels elevated off bed 12. Monitor skin at least every shift 13. Inspect under medical devices twice a day WOUND TREATMENT RECOMMENDATIONS: CONTINUE CURRENT WOUND ORDERS.
--- NOTE | 2019-05-10 11:18 | NUR ---
PHYSICAL THERAPY Abbeyal completed pt moderate complexity level-[id number]. PT to work on transfers, Standing tolerance/amb, strengthening recommend SNF at discharge, thank you. Nicci Posey PT
--- NOTE | 2019-05-10 12:13 | NUR ---
[facility]. IRON PLASTIC BULLET MAKER faxed updates to [facility]. -CATY Jeffery
--- NOTE | 2019-05-10 14:13 | NUR ---
ZONE SUPERVISOR FIREARMS faxed PT/OT Evals to [facility] -CATY Jeffery
--- NOTE | 2019-05-10 15:06 | NUR ---
PHYSICAL THERAPY Patient was getting a blood transfusion when this ASP NET C DEVELOPER approached patient at 2:00 pm. Patient also is not feeling well at all. Will check back later. DAKOTA ANDRE ASP NET C DEVELOPER
--- NOTE | 2019-05-10 16:22 | NUR ---
PER DR CONNOLLY PT CAN HAVE A REGULAR DIET
--- NOTE | 2019-05-10 20:17 | NUR ---
24 HR chart check completed.
--- NOTE | 2019-05-10 21:00 | NUR ---
RESTING IN BED WITH NO ACUTE DISTRESS NOTED. RESPIRATIONS EASY. LUNGS DIMINISHED, CLEAR. PULSE OX 97% RA. TRACE BLE EDEMA WITH HEEL PROTECTORS IN PLACE. CALL LIGHT WITHIN REACH. NO VOICED COMPLAINTS. BED ALARM MAINTAINED FOR SAFETY
[2019-05-11] VITALS: BP 143/77
--- NOTE | 2019-05-11 | NUR ---
SLEEPING. NO ACUTE DISTRESS NOTED. RESPIRATIONS EASY. VSS. CALL LIGHT WITHIN REACH.
--- NOTE | 2019-05-11 06:00 | NUR ---
SLEPT THROUGHOUT NIGHT WITH NO DISTRESS NOTED. RESPIRATIONS EASY. CALL LIGHT WITHIN REACH. NO VOICED COMPLAINTS THIS SHIFT
[2019-05-11 06:37] LABS: HEMATOCRIT 27.9 % (42.0-52.0); HEMOGLOBIN 8.1 g/dl (14.0-18.0); MEAN CELL VOLUME 87.5 fl (80.0-94.0); MEAN CORPUSCULAR HGB 25.4 pg (27.0-31.0); MEAN PLATELET VOLUME 9.8 fl (9.6-12.3); PLATELET COUNT AUTOMATED 178 10*3/uL (130-400); RED BLOOD COUNT 3.19 10*6/uL (4.50-5.90); RED CELL DISTRI WIDTH 19.1 % (0-14.5); RETICULOCYTE % 2.96 % (0.50-2.50); WHITE BLOOD COUNT 7.8 10*3/uL (4.8-10.8)
--- NOTE | 2019-05-11 07:55 | NUR ---
PHYSICAL THERAPY PT SUPINE IN BED UPON ARRIVAL THIS A.M. PT REPORTED "NO THERAPY AT THIS TIME PLEASE." PHYSICAL THERAPY WILL TRY AGAIN AT A LATER TIME/DATE. JALEN FLOOD PTA
[2019-05-11 09:07] LABS: BASOPHILS 2 % (0-1); PLATELET SUFFICIENCY NORMAL (NORMAL); POLYCHROMASIA SLIGHT; SCHISTOCYTES FEW; TOTAL CELLS COUNTED 100 #CELLS
[2019-05-11 09:08] LABS: OVALOCYTES FEW; ROULEAUX SLIGHT
--- NOTE | 2019-05-11 10:33 | NUR ---
OT NOTE PATIENT IN BED UPON ARRIVAL. PATIENT REPORTS NOT UP TO THERAPY THIS AM. WILL TRY BACK LATER TIME/DATE. JEOVANY SHELTON/Jay
[2019-05-11 12:00] VITALS: BP 140/69
--- NOTE | 2019-05-11 12:04 | NUR ---
Nutritional Support Services Note: Pt eating 100% of meals. Wounds noted to left thigh, left buttock, left forearm, left elbow. Regular diet as ordered. Severe protein calorie malnutrition noted. He declines a supplement at this time. Will provide a night snack. Encourage intake of meals. Will follow if needed. Ht.6' Wt.216#. Dawn Joseph Rdn Ld
--- NOTE | 2019-05-11 12:27 | NUR ---
RT REFUSING DISCHARGE WOUND PHOTO'S.
--- NOTE | 2019-05-11 12:51 | NUR ---
POLICE SERGEANT PRECINCT notified of patient discharge. POLICE SERGEANT PRECINCT spoke with the patient and patients . POLICE SERGEANT PRECINCT spoke with MARTHA Parekh. POLICE SERGEANT PRECINCT contacted [facility] to schedule a transport. [facility] is able to transport at 1:30pm today. POLICE SERGEANT PRECINCT notified MARTHA Parekh. POLICE SERGEANT PRECINCT spoke with patients who was at bedside and is agreeabe with the transport time. POLICE SERGEANT PRECINCT notified [facility] and faxed discharge orders. -CATY Jeffery
--- NOTE | 2019-05-11 13:42 | NUR ---
[facility] Discharge instructions reviewed with patient/family. Patient receptive and verbalizes understanding. Follow-up care arranged. Written instructions given to patient/family. CAPRI SEVILLA
--- NOTE | 2019-05-11 15:22 | NUR ---
PHYSICAL THERAPY CO-SIGN I approve of the Physical Therapy notes written above. Nicci Posey PT
--- NOTE | 2019-05-11 15:22 | NUR ---
OCCUPATIONAL THERAPY CO-SIGN I approve of the Occupational Therapy notes written above. SANTOS GRIGSBY OTR/Jay
--- NOTE | 2019-05-14 07:51 | NUR ---
PHYSICAL THERAPY CO-SIGN I approve of the Physical Therapy notes written above. Nicci Posey PT
== END 2019-05-11 13:42 | disposition other institution (70) | DRG 686 ==
LOC: ED 06:29 → 5E 08:26 → EDHOLD 08:26 → 5E 08:40
PROVIDERS: Emergency Medicine; Family Medicine; Registered Nurse; ADMIT Family Medicine
PROC: 30233N1 Transfusion of Nonautologous Red Blood Cells into Peripheral Vein, Percutaneous Approach (ICD-10-PCS; principal; 2019-05-09)
DX: C64.2 Malignant neoplasm of left kidney, except renal pelvis (principal); E43 Unspecified severe protein-calorie malnutrition; I24.8 Other forms of acute ischemic heart disease; I50.32 Chronic diastolic (congestive) heart failure; F33.9 Major depressive disorder, recurrent, unspecified; I13.0 Hypertensive heart and chronic kidney disease with heart failure and stage 1 through stage 4 chronic kidney disease, or unspecified chronic kidney disease; C79.51 Secondary malignant neoplasm of bone; C78.02 Secondary malignant neoplasm of left lung; C78.01 Secondary malignant neoplasm of right lung; R07.9 Chest pain, unspecified; D63.0 Anemia in neoplastic disease; I25.118 Atherosclerotic heart disease of native coronary artery with other forms of angina pectoris; E78.2 Mixed hyperlipidemia; Z66 Do not resuscitate; Z51.5 Encounter for palliative care; E03.9 Hypothyroidism, unspecified; K21.9 Gastro-esophageal reflux disease without esophagitis; N18.3 Chronic kidney disease, stage 3 (moderate); E11.22 Type 2 diabetes mellitus with diabetic chronic kidney disease; Z85.46 Personal history of malignant neoplasm of prostate; Z95.5 Presence of coronary angioplasty implant and graft; Z90.49 Acquired absence of other specified parts of digestive tract; Z90.5 Acquired absence of kidney; Z87.891 Personal history of nicotine dependence; Z80.0 Family history of malignant neoplasm of digestive organs; Z80.8 Family history of malignant neoplasm of other organs or systems; Z92.21 Personal history of antineoplastic chemotherapy; Z92.3 Personal history of irradiation; Z79.899 Other long term (current) drug therapy; Z68.29 Body mass index [BMI] 29.0-29.9, adult

== ENCOUNTER 2019-05-26 13:19 | Inpatient (IN) | payer MEDICARE, BC ==
[2019-05-26] VITALS (7 sets, daily range): BP systolic 147–188; BP diastolic 72–96
[~2019-05-26] VITALS: Ht 182.9 cm; Wt 98.2 kg
[~2019-05-26 13:19] MED LIST changes: +ATIVAN1 MG PO; +BISACODYL10 MG SC; +CELEBREX100 MG PO; +DOLOPHINE HCL10 MG PO; +MELOXICAM7.5 MG PO; +METHADONE HYDRO40 M1 PO; +MILK OF MA400 MG/5 M PO; +MIRALAX17 GM PO; +MULTIVITAMINS1 EAC5 PO; +MYLANTA MAXIMU355 M1 PO; +Methadone Hydro10 MG PO; +NARCAN4 MG NAS; +NEURONTIN100 MG PO; +OMEPRAZOLE MAGN20 MG PO; +OXYCODONE HCL10 M1 PO; +PREDNISONE10 M1 PO; +PROTONIX40 MG PO; +SENOKOT8.6 MG PO; +TOPROL XL25 MG PO; +TYLENOL EXTRA500 MG PO; +VITAMIN C500 M8 PO; +ZINC-220220 MG PO; +ZOFRAN4 MG PO
[2019-05-26 13:51] LABS: HEMATOCRIT 26.1 % (42.0-52.0); HEMOGLOBIN 7.5 g/dl (14.0-18.0); MEAN CELL VOLUME 88.8 fl (80.0-94.0); MEAN CORPUSCULAR HGB 25.5 pg (27.0-31.0); MEAN CORPUSCULAR HGB CONC 28.7 g/dl (33.0-37.0); MEAN PLATELET VOLUME 9.6 fl (9.6-12.3); NUCLEATED RED BLOOD CELL 0.3 % (0.0-0.0); PLATELET COUNT AUTOMATED 210 10*3/uL (130-400); RED BLOOD COUNT 2.94 10*6/uL (4.50-5.90); RED CELL DISTRI WIDTH 19.9 % (0-14.5)
[2019-05-26 14:06] LABS: ALBUMIN 2.2 gm/dl (3.1-4.5); ALKALINE PHOSPHATASE 121 U/L (45-117); BUN 21 mg/dl (7-24); CHLORIDE 109 mmol/L (98-107); CREATININE 1.09 mg/dL (0.70-1.30); POTASSIUM 4.7 mmol/L (3.5-5.1); SGOT/AST 31 IU/L (3-35); SGPT/ALT 19 U/L (12-78); SODIUM 142 mmol/L (136-145); TOTAL PROTEIN 6.2 gm/dL (6.4-8.2)
[2019-05-26 14:16] LABS: PLATELET SUFFICIENCY NORMAL (NORMAL); TOTAL CELLS COUNTED 100 #CELLS
[2019-05-26 14:17] LABS: BURR CELLS FEW; OVALOCYTES FEW; POLYCHROMASIA SLIGHT
--- NOTE | 2019-05-26 16:15 | NUR ---
Time: 1614 A 69 year old MALE admitted to 5E under services of FREDDIE BENTON DO. Pt. arrived via bed from ER. Chief complaint: ANEMIA. TAI FERRERA
--- NOTE | 2019-05-26 16:30 | NUR ---
DR. YAP MADE AWARE OF WOUNDS
[2019-05-26] MEDS ORDERED: NORVASC5 MG PO (16:47)
[2019-05-26] MEDS ORDERED: LOSARTAN POTASS50 M1 PO (16:51)
--- NOTE | 2019-05-26 18:08 | NUR ---
NOTIFIED DR. REIS AT THIS TIME OF PATIENTS BLOOD PRESSURE SLOWLY CREEPING UP. PATIENTS LAST BP 174/79. HE STATES TO GIVE HIM A CALL OF IT GOES OVER 180 DIASTOLIC
--- NOTE | 2019-05-26 18:15 | NUR ---
NOTIFIED DR. REIS OFPATIENTS BLOODPRESSURE. STATED TO CALL IF SYSTOLIC GOES [id number]
--- NOTE | 2019-05-26 18:31 | NUR ---
NOTIFIED ROBERT HOWELL ANSWERING SERVICE OF CONSULT. THEY STATED THEY WOULD HAVE A NURSE CALL BACK
--- NOTE | 2019-05-26 18:42 | NUR ---
SPOKE WITH GEOVANNI FROM [facility] FOR PALLIATIVE CARE CONSULT.
--- NOTE | 2019-05-26 19:45 | NUR ---
IN TO SEE PT. FAMILY AT BEDSIDE. PRBC INFUSING. VITALS TAKEN- SEE TAR. PTS BP WAS 186/85. PO WAS 92% ON RA. PTS FAMILY REQUESTING THAT THE PT BE PUT ON OXYGEN HE WEARS IT AT THE SKILLED NURSING HE CAME FROM AT NIGHT. JONATHAN FROM RESPIRATORY NOTIFIED AND PLACED PT ON 2L VIA NC.
--- NOTE | 2019-05-26 20:00 | NUR ---
Nurse called to see if patient could be placed on some oxygen. SpO2 was 92% on room air but family states that he wears 2L of oxygen at the correction. Oxygen placed on pt per family request for comfort at night.
--- NOTE | 2019-05-26 21:00 | NUR ---
DR WELDON NOTIFIED OF BP 188/96. T.O. TAKEN FOR 25 METOPROLOL.
--- NOTE | 2019-05-26 22:02 | NUR ---
ONE TIME DOSE OF METOPROLOL ADMINISTERED FOR B/P 188/96.
--- NOTE | 2019-05-26 23:19 | NUR ---
ACCESSED PATIENTS CHART TO ASSIST DR. WELDON.
[2019-05-27] VITALS: BP 179/88
--- NOTE | 2019-05-27 00:15 | NUR ---
DR WELDON NOTIFIED OF BP 170/90. AWAITING ORDERS.
--- NOTE | 2019-05-27 03:16 | NUR ---
PRN ZOFRAN ADMINISTERED FOR PT C/O NAUSEA.
[2019-05-27 03:36] VITALS: BP 164/84
[2019-05-27 06:34] LABS: HEMATOCRIT 29.6 % (42.0-52.0); HEMOGLOBIN 8.6 g/dl (14.0-18.0); MEAN CELL VOLUME 87.6 fl (80.0-94.0); MEAN CORPUSCULAR HGB 25.4 pg (27.0-31.0); MEAN CORPUSCULAR HGB CONC 29.1 g/dl (33.0-37.0); MEAN PLATELET VOLUME 9.9 fl (9.6-12.3); NUCLEATED RED BLOOD CELL 0.3 % (0.0-0.0); PLATELET COUNT AUTOMATED 230 10*3/uL (130-400); RED BLOOD COUNT 3.38 10*6/uL (4.50-5.90)
[2019-05-27 06:39] LABS: BUN 16 mg/dl (7-24); CHLORIDE 105 mmol/L (98-107); POTASSIUM 4.6 mmol/L (3.5-5.1); SODIUM 140 mmol/L (136-145)
[2019-05-27 06:41] LABS: CREATININE 0.88 mg/dL (0.70-1.30)
[2019-05-27 07:30] LABS: OVALOCYTES FEW; PLATELET SUFFICIENCY NORMAL (NORMAL); POLYCHROMASIA SLIGHT; TOTAL CELLS COUNTED 100 #CELLS
[2019-05-27 08:00] VITALS: BP 188/94
--- NOTE | 2019-05-27 08:28 | NUR ---
NOTIFIED DR. REIS OF PATIENTS BLOOD PRESSURE 188/94. HE STATED TO GIVE THE PATIENT HIS MEDICATION EARLY
[2019-05-27 10:00] VITALS: BP 168/84
--- NOTE | 2019-05-27 10:00 | NUR ---
SPOKE WITH DR. YAP ABOUT PATIENTS FAMILIES CONCERN ABOUT HIM GETTING HIS METHADONE.
--- NOTE | 2019-05-27 11:05 | NUR ---
DR. YAP STATED TO HOLD PATIENTS MORNING METHADONE DOSE AND WAIT UNTIL HE GETS BACK TO THE [facility]
--- NOTE | 2019-05-27 11:08 | NUR ---
PATIENTS NOTIFIED OF PATIENT TO BE DISCHARGED BACK TO THE [facility]
--- NOTE | 2019-05-27 11:11 | NUR ---
SPOKE WITH [facility] AT THIS TIME. NOTIFIED THEM OF PATIENT BEING DISCHARGED. THEY STATED ANY TIME WOULD BE OK TO SEND HIM BACK
--- NOTE | 2019-05-27 12:07 | NUR ---
NOTIFIED AT THIS TIME THAT [facility] WOULD BE HERE TO WASTEWATER TREATMENT ENGINEER PATIENT AT 1230 FOR RETURN BACK TO [facility]
--- NOTE | 2019-05-27 12:15 | NUR ---
REPORT CALLED TO SHALINI AT [facility] NOTIFIED HER THAT PATIENT WILL BE RETURNING ABOUT 0849
== END 2019-05-27 12:15 | disposition other institution (70) | DRG 811 ==
LOC: ED 13:19 → EDHOLD 15:49 → 5E 15:54
PROVIDERS: Emergency Medicine; Internal Medicine; ADMIT Family Medicine
PROC: 30233N1 Transfusion of Nonautologous Red Blood Cells into Peripheral Vein, Percutaneous Approach (ICD-10-PCS; principal; 2019-05-26)
DX: D64.89 Other specified anemias (principal); G93.41 Metabolic encephalopathy; E43 Unspecified severe protein-calorie malnutrition; I50.32 Chronic diastolic (congestive) heart failure; I13.0 Hypertensive heart and chronic kidney disease with heart failure and stage 1 through stage 4 chronic kidney disease, or unspecified chronic kidney disease; Z90.5 Acquired absence of kidney; E78.5 Hyperlipidemia, unspecified; E03.9 Hypothyroidism, unspecified; R91.1 Solitary pulmonary nodule; M89.8X8 Other specified disorders of bone, other site; G89.3 Neoplasm related pain (acute) (chronic); D72.810 Lymphocytopenia; E87.8 Other disorders of electrolyte and fluid balance, not elsewhere classified; E83.52 Hypercalcemia; K21.9 Gastro-esophageal reflux disease without esophagitis; M84.459S Pathological fracture, hip, unspecified, sequela; I25.10 Atherosclerotic heart disease of native coronary artery without angina pectoris; D72.829 Elevated white blood cell count, unspecified; Z66 Do not resuscitate; Z51.5 Encounter for palliative care; N18.3 Chronic kidney disease, stage 3 (moderate); F32.9 Major depressive disorder, single episode, unspecified; E11.65 Type 2 diabetes mellitus with hyperglycemia; E11.22 Type 2 diabetes mellitus with diabetic chronic kidney disease; Z85.46 Personal history of malignant neoplasm of prostate; Z90.49 Acquired absence of other specified parts of digestive tract; Z95.5 Presence of coronary angioplasty implant and graft; Z87.891 Personal history of nicotine dependence; Z80.42 Family history of malignant neoplasm of prostate; Z80.0 Family history of malignant neoplasm of digestive organs; Z80.8 Family history of malignant neoplasm of other organs or systems; Z79.899 Other long term (current) drug therapy; Z79.52 Long term (current) use of systemic steroids; Z68.29 Body mass index [BMI] 29.0-29.9, adult

== ENCOUNTER 2019-05-28 12:03 | Inpatient (IN) | payer MEDICARE, BC ==
[~2019-05-28] VITALS: Ht 182.8 cm; Wt 98.2 kg
[~2019-05-28 12:03] MED LIST changes: +LOSARTAN POTASS50 M1 PO; +NORVASC5 MG PO
[2019-05-28 12:06] VITALS: BP 159/81
[2019-05-28 14:16] VITALS: BP 142/78
--- NOTE | 2019-05-28 14:22 | NUR ---
PT REPOSITIONED FOR COMFORT.FIREBRICK LAYER HELPER LEGER IN TO SPEAK WITH PT AND FAMILY ABOUT HIS XRAY RESULTS.--VERENA BRYAN RN
[2019-05-28 16:00] VITALS: BP 130/82
[2019-05-28 16:44] LABS: HEMATOCRIT 24.1 % (42.0-52.0); HEMOGLOBIN 7.1 g/dl (14.0-18.0); MEAN CELL VOLUME 89.3 fl (80.0-94.0); MEAN CORPUSCULAR HGB 26.3 pg (27.0-31.0); MEAN CORPUSCULAR HGB CONC 29.5 g/dl (33.0-37.0); MEAN PLATELET VOLUME 9.9 fl (9.6-12.3); NUCLEATED RED BLOOD CELL 0.2 % (0.0-0.0); PLATELET COUNT AUTOMATED 238 10*3/uL (130-400); RED CELL DISTRI WIDTH 19.5 % (0-14.5); WHITE BLOOD COUNT 15.5 10*3/uL (4.8-10.8)
[2019-05-28 16:45] VITALS: BP 130/82
--- NOTE | 2019-05-28 16:45 | NUR ---
Time: 1644 A 69 year old MALE admitted to 5E under services of JOYCELYN HAMMOND DO, Pt. arrived via bed from ER. Chief complaint: UNCONTROLLED PAIN. ANNE ARTEAGA
[2019-05-28 16:58] LABS: ALBUMIN 2.2 gm/dl (3.1-4.5); ALKALINE PHOSPHATASE 126 U/L (45-117); BUN 18 mg/dl (7-24); CHLORIDE 107 mmol/L (98-107); CREATININE 1.34 mg/dL (0.70-1.30); POTASSIUM 4.5 mmol/L (3.5-5.1); SGOT/AST 49 IU/L (3-35); SGPT/ALT 21 U/L (12-78); SODIUM 141 mmol/L (136-145); TOTAL PROTEIN 5.9 gm/dL (6.4-8.2)
--- NOTE | 2019-05-28 17:00 | NUR ---
WOUND CARE MEASUREMENTS COMPLETED PER PROTOCOL.
[2019-05-28 17:08] LABS: POLYCHROMASIA SLIGHT; TOTAL CELLS COUNTED 100 #CELLS
[2019-05-28 17:09] LABS: OVALOCYTES FEW; PLATELET SUFFICIENCY NORMAL (NORMAL)
--- NOTE | 2019-05-28 17:45 | NUR ---
OXI 10 MG GIVEN FOR C/O PAIN TO LEFT HIP,01/27.
--- NOTE | 2019-05-28 17:59 | NUR ---
NOTIFIED DR BOLAND THAT HOME MEDS HAD BEEN RECONCILED WITH LIST FROM [facility].LIST ON FILE IN CHART. WOUNDCARE ORDERS REQUESTED AT THIS TIME. CALL LIGHT IN REACH.SON AT BEDSIDE VISITING PT.
--- NOTE | 2019-05-28 18:49 | NUR ---
PT REFUSES SCDS AND TEDS AT THIS TIME. REMOVED SCD'S PER PT REQUEST. SON AT BEDSIDE. VOICES NO OTHER NEEDS AT THIS TIME. CALL LIGHT IN REACH.
[2019-05-28 20:00] VITALS: BP 132/86
--- NOTE | 2019-05-28 20:17 | NUR ---
PT COMPLAINING OF L HIP PAIN 01/27 DILAUDID GIVEN PRN
--- NOTE | 2019-05-28 21:16 | NUR ---
24 HOUR CHART CHECK COMPLETED
--- NOTE | 2019-05-28 21:19 | NUR ---
pt states pain is 6/10 after dilaudid given
--- NOTE | 2019-05-28 23:56 | NUR ---
DILAUDID GIVEN PT COMPLAINING OF L HIP PAIN 03/29
[2019-05-29] VITALS (17 sets, daily range): BP systolic 110–161; BP diastolic 58–106
--- NOTE | 2019-05-29 00:56 | NUR ---
PT SLEEPING RESTING COMFORTABLY AFTER PAIN MED NO COMPLAINTS OF PAIN
--- NOTE | 2019-05-29 05:28 | NUR ---
PT COMPLAINS OF PAIN L HIP 01/27 PRN DILAUDID GIVEN
--- NOTE | 2019-05-29 05:51 | NUR ---
CAITLIN CONNELLY [id number] Please refer to the physician's history and physical for past medical history, comorbid conditions, and allergies. Diagnosis: UNCONTROLLED PAIN Elgin Score: 13,MODERATE RISK WOUND DESCRIPTIONS: Wound Number: 1 Location of the wound: left forearm Type of wound: scab Thickness: Partial Size: 1.4cm x 0.5cm x <0.1cm Tunneling: none Undermining: none Sinus Tract: none Presence of Exudate: none at time of assessment Amount: None Color: Red, brown Odor: None Periwound Skin Appearance: Normal Wound edges: approximated Pain (associated with wound): none at time of assessment How does patient state this happened? pt is unsure how this happened Wound Number: 2 Right forearm ecchymotic area noted at time of assessment. No drainage noted at time of assessment. No open areas noted at time of assessment. Wound Number: 3 Location of the wound: left buttocks Type of wound: Deep tissue pressure injury Size: 0.4cm x 0.9cm x <0.1cm Tunneling: none Undermining: none Sinus Tract: none Presence of Exudate: none Amount: None Color: Purple, red Odor: None Periwound Skin Appearance: Normal Wound edges: closed Pain (associated with wound): none at time of assessment How does patient state this happened? pt is unsure how this happened Wound Number: 4 Location of the wound: left lateral elbow Type of wound: scab Thickness: Partial Size: 0.9cm x 0.7cm x <0.1cm Tunneling: none Undermining: none Sinus Tract: none Presence of Exudate: none Amount: None Color: Red, brown Odor: None Periwound Skin Appearance: Normal Wound edges: approximated Pain (associated with wound): none at time of assessment How does patient state this happened? pt unable to state how this happened Wound Number: 5 Left hip intact scar at time of assessment. Patient stated he had surgery in April. Wound Number: 6 Location of the wound: left elbow below AC Type of wound: scab Thickness: Partial Size: 0.7cm x 0.5cm x <0.1cm Tunneling: none Undermining: none Sinus Tract: none Presence of Exudate: none Amount: None Color: Red, brown Odor: None Periwound Skin Appearance: Normal Wound edges: approximated Pain (associated with wound): none at time of assessment How does patient state this happened? pt unable to state how this happened Surface the patient is resting on: Isoflex SKIN PREVENTION RECOMMENDATION: 1. Pressure redistribution support surface as appropriate 2. Elevate heels 3. Remove boots/TEDS every shift and reapply 4. Head of bed 30 degrees as tolerated 5. Assess nutrition and hydration 6. Manage moisture 7. Avoid the use of containment devices while in bed 8. Use absorptive products on surfaces limit layers of linens on bed 9. Turn and reposition every 1-2 hours in bed and every 1 hour in chair as tolerated 10. Weight shifts every 15 minutes while up in chair 11. Offloading with pillows or device to keep heels elevated off bed 12. Monitor skin at least every shift 13. Inspect under medical devices twice a day WOUND TREATMENT RECOMMENDATIONS: DTI guidelines: Cleanse left buttocks with soap and water apply sureprep allow time to dry then cover with optifoam gentle daily and prn for soiling. Partial thickness guidelines: Cleanse left forearm, left lateral elbow,and left elbow AC with nss and apply sureprep around the wound hydrogel to wound bed and cover with optifoam gentle every 2 days and prn for soiling. Heel raiser pro boots to bilateral feet Wheelchair cushion when oob. Patient stated he will care for these when he returns home and doesn't need to follow up in the outpatient setting.
[2019-05-29 06:27] LABS: MEAN CELL VOLUME 88.7 fl (80.0-94.0); MEAN CORPUSCULAR HGB 25.5 pg (27.0-31.0); MEAN CORPUSCULAR HGB CONC 28.8 g/dl (33.0-37.0); MEAN PLATELET VOLUME 9.6 fl (9.6-12.3); NUCLEATED RED BLOOD CELL 0.1 10*3/uL (0.0-0.0); NUCLEATED RED BLOOD CELL 0.4 % (0.0-0.0); PLATELET COUNT AUTOMATED 202 10*3/uL (130-400); RED BLOOD COUNT 2.31 10*6/uL (4.50-5.90); RED CELL DISTRI WIDTH 19.7 % (0-14.5)
[2019-05-29 06:43] LABS: HEMATOCRIT 20.5 % (42.0-52.0); HEMOGLOBIN 5.9 g/dl (14.0-18.0)
--- NOTE | 2019-05-29 06:46 | NUR ---
LAB CALLED WITH CRITICAL RESULTS HGB 5.9/HCT 20.[address] SINGH NO ANSWER WILL CALL BACK
[2019-05-29 07:01] LABS: ALBUMIN 2.2 gm/dl (3.1-4.5); ALKALINE PHOSPHATASE 153 U/L (45-117); BUN 17 mg/dl (7-24); CHLORIDE 104 mmol/L (98-107); CHOLESTEROL 145 mg/dL (<200); CREATININE 1.19 mg/dL (0.70-1.30); HDL CHOLESTEROL 34 mg/dl (40-60); LDL CHOLESTEROL 43 mg/dL (9-159); PHOSPHOROUS 2.8 mg/dL (2.5-4.9); POTASSIUM 4.2 mmol/L (3.5-5.1); SGOT/AST 80 IU/L (3-35); SGPT/ALT 29 U/L (12-78); SODIUM 139 mmol/L (136-145); TOTAL PROTEIN 5.8 gm/dL (6.4-8.2); TRIGLYCERIDES 341 mg/dl (<150); VLDL CHOLESTEROL 68 mg/dL (6-40)
[2019-05-29 07:11] LABS: OVALOCYTES FEW; PLATELET SUFFICIENCY NORMAL (NORMAL); POLYCHROMASIA SLIGHT; STOMATOCYTE FEW; TOTAL CELLS COUNTED 100 #CELLS
[2019-05-29 07:12] LABS: SCHISTOCYTES FEW
[2019-05-29 07:26] LABS: ACT PARTIAL THROMBO TIME 23.6 SECONDS (20.0-32.1)
--- NOTE | 2019-05-29 07:36 | NUR ---
NOTIFIED DR BOLAND THAT PT HAD CRITICAL H/H OF 5.9/20.5.
[2019-05-29 07:38] LABS: VITAMIN D, 25-HYDROXY 22.2 ng/mL (30-100)
--- NOTE | 2019-05-29 08:41 | NUR ---
Dr. Hope notified of wound care recommendations.
--- NOTE | 2019-05-29 10:20 | NUR ---
OXI IR 10 MG AND ZOFRAN 4 MG GIVEN FOR C/O LEFT HIP PAIN,01/27. PT STATES METHADONE NOT EFFECTIVE FOR LEFT HIP PAIN.
--- NOTE | 2019-05-29 10:30 | NUR ---
Food Service in to see patient. He is currently short term at [facility] and plans to return there upon discharge. He needs assistance with his ADLs and has been ambulating with a walker. He states he uses O2 prn and aerosols prn. When medically stable he will be discharged to [facility]. field ironworker following.
--- NOTE | 2019-05-29 11:33 | NUR ---
Nurse; Adriane reported that patient has a Hb level of 5.0 and she was now hanging blood. Patient not able to participate in Occupational Therapy evaluation. OTR will attempt at a later date. Nazia Wall OTR/arturo
--- NOTE | 2019-05-29 11:54 | NUR ---
Patient is short term at [facility]. BPO SPECIALIST faxed updates to [facility] -CATY Jeffery
--- NOTE | 2019-05-29 12:15 | NUR ---
PHYSICAL THERAPY Attempted to see pt for eval however deferred at this time as receiving blood will follow Nicci Posey PT
--- NOTE | 2019-05-29 12:20 | NUR ---
DR HENDRICKS'S ANSWERING SERVICE NOTIFIED OF CONSULT FOR HYPERCALCEMIA WITH KNOWN METS TO BONE.
--- NOTE | 2019-05-29 13:30 | NUR ---
Informed consent obtained from patient for Blood transfussion by Dr. IVORY.VITALS OBTAINED. Patient identified by arm band. Vital signs recorded. Blood unit number verified by 2 R.N.'s. I.V. site satisfactory. Unit 1 started at 75 ML/HR with Normal Saline. ANNE ARTEAGA
--- NOTE | 2019-05-29 15:03 | NUR ---
IV started left forearm with #22 angiocath after 1 attempts. The IV site was prepped with Chloraprep. Heparin lock attached. 1 UNIT PRBC'S infusing at 125 cc/hr. Sterile dressing applied. Patient tolerated precedure well. Procedure performed according to [facility] policy & procedure. IV started left antecubital with #22 protective cath after 1 attempts. Site prepped with Chloroprep. Sterile dressing applied. Patient tolerated procedure well. ANNE ARTEAGA
--- NOTE | 2019-05-29 16:15 | NUR ---
BLOOD TRANSFUSION COMPLETED. PT TOLERATED WELL.STABLE AT THIS TIME.FAMILY VISITING AT BEDSIDE. CALL LIGHT IN REACH.
[2019-05-29 17:25] LABS: HEMATOCRIT 23.6 % (42.0-52.0); MEAN CELL VOLUME 88.7 fl (80.0-94.0); MEAN CORPUSCULAR HGB 25.9 pg (27.0-31.0); MEAN CORPUSCULAR HGB CONC 29.2 g/dl (33.0-37.0); MEAN PLATELET VOLUME 9.7 fl (9.6-12.3); NUCLEATED RED BLOOD CELL 0.1 10*3/uL (0.0-0.0); NUCLEATED RED BLOOD CELL 0.7 % (0.0-0.0); PLATELET COUNT AUTOMATED 237 10*3/uL (130-400); RED BLOOD COUNT 2.66 10*6/uL (4.50-5.90); WHITE BLOOD COUNT 16.5 10*3/uL (4.8-10.8)
[2019-05-29 17:35] LABS: HEMOGLOBIN 6.9 g/dl (14.0-18.0)
--- NOTE | 2019-05-29 17:35 | NUR ---
NOTIFIED DR BOLAND OF CRITICAL HGB OF 6.9. ORDERS RECIEVED.
--- NOTE | 2019-05-29 17:44 | NUR ---
NOTIFIED EDDA HOWELL ANSWERING SERVICE OF NEW CONSULT FOR PALLIATIVE CARE.
[2019-05-29 17:47] LABS: PLATELET SUFFICIENCY NORMAL (NORMAL); TOTAL CELLS COUNTED 100 #CELLS
[2019-05-29 17:48] LABS: POLYCHROMASIA SLIGHT
--- NOTE | 2019-05-29 18:40 | NUR ---
Informed consent obtained from patient for Blood transfussion by Dr. IVORY. Patient identified by arm band. Vital signs recorded. Blood unit number verified by 2 R.N.'s. I.V. site satisfactory. Unit 2 started at a KVO rate with Normal Saline. ANNE ARTEAGA
--- NOTE | 2019-05-29 19:40 | NUR ---
Patient resting quietly with no c/o discomfort. Respirations easy and regular. Vital signs stable. No overt distress. ALICE AGUILAR
--- NOTE | 2019-05-29 19:49 | NUR ---
PT COMPLAINING OF PAIN L HIP 01/27 PRN DILAUDID GIVEN
--- NOTE | 2019-05-29 21:28 | NUR ---
WOUND CARE ORDER DRESSINGS APPLIED
--- NOTE | 2019-05-29 21:43 | NUR ---
PT WORE HEEL PROTECTORS FOR 10MINS AND WANTED TO TAKE THEM OFF
--- NOTE | 2019-05-29 21:45 | NUR ---
SPOKE WITH DR WELDON SAID TO PUT IN H&H FOR 01005/30
--- NOTE | 2019-05-29 22:24 | NUR ---
BLOOD #2 FINISHED PT VITALS STABLE H&H @ 0100, WILL CALL HOSPITALIST WITH RESULTS
[2019-05-30] VITALS: BP 136/72
[2019-05-30 01:17] LABS: HEMATOCRIT 23.3 % (42.0-52.0); HEMOGLOBIN 7.3 g/dl (14.0-18.0)
--- NOTE | 2019-05-30 01:23 | NUR ---
SPOKE WITH DR WELDON UPDATED HIM ON PT H&H 7.09/09.3 HE SAID TO JUST CONTINUE TO WATCH HIM AND I INFORMED HIM HE'LL BE GETTING A CBC AT 0530 05/30/19
--- NOTE | 2019-05-30 03:08 | NUR ---
Upon discharge recommend patient to follow up for wound care in outpatient setting continue current wound care orders at discharging facility.
--- NOTE | 2019-05-30 05:28 | NUR ---
PT COMPLAINING OF L HIP PAIN 01/27 PRN DILAUDID GIVEN
[2019-05-30 05:52] LABS: BILIRUBIN NEGATIVE (NEGATIVE); BLOOD NEGATIVE (NEGATIVE); CLARITY CLEAR (CLEAR); COLOR YELLOW (YELLOW); GLUCOSE NEGATIVE (NEGATIVE); KETONE NEGATIVE (NEGATIVE); LEUKO ESTERASE NEGATIVE (NEGATIVE); NITRITE NEGATIVE (NEGATIVE); PH 5.5 (5.0-9.0); SPECIFIC GRAVITY 1.025 (1.005-1.030); UROBILINOGEN 0.2 E.U./dl (0.2-1.0)
[2019-05-30 05:59] LABS: URIC ACID CRYSTALS 1+; WBC 0-2 wbc/hpf (0-5)
[2019-05-30 06:10] LABS: HEMATOCRIT 23.2 % (42.0-52.0); HEMOGLOBIN 7.2 g/dl (14.0-18.0); MEAN CELL VOLUME 87.9 fl (80.0-94.0); MEAN CORPUSCULAR HGB 27.3 pg (27.0-31.0); MEAN PLATELET VOLUME 9.9 fl (9.6-12.3); NUCLEATED RED BLOOD CELL 0.1 10*3/uL (0.0-0.0); NUCLEATED RED BLOOD CELL 0.4 % (0.0-0.0); PLATELET COUNT AUTOMATED 177 10*3/uL (130-400); RED BLOOD COUNT 2.64 10*6/uL (4.50-5.90); RED CELL DISTRI WIDTH 18.6 % (0-14.5); WHITE BLOOD COUNT 14.9 10*3/uL (4.8-10.8)
[2019-05-30 06:20] LABS: ALKALINE PHOSPHATASE 145 U/L (45-117); BUN 15 mg/dl (7-24); CHLORIDE 106 mmol/L (98-107); CREATININE 1.11 mg/dL (0.70-1.30); SGOT/AST 74 IU/L (3-35); SGPT/ALT 27 U/L (12-78); SODIUM 141 mmol/L (136-145); TOTAL PROTEIN 5.5 gm/dL (6.4-8.2)
[2019-05-30 06:35] LABS: ATYPICAL LYMPHS 1 % (0-0); TOTAL CELLS COUNTED 100 #CELLS
[2019-05-30 06:36] LABS: OVALOCYTES FEW; PLATELET SUFFICIENCY NORMAL (NORMAL); POLYCHROMASIA SLIGHT
--- NOTE | 2019-05-30 06:42 | NUR ---
24 HR CHART CHECK COMPLETED
[2019-05-30 08:00] VITALS: BP 148/84
--- NOTE | 2019-05-30 08:53 | NUR ---
PT RESTING IN BED. NO DISTRESS NOTED. WILL MONITOR
--- NOTE | 2019-05-30 09:00 | NUR ---
Mechanical Project Engineer in to see patient. No new needs or request at this time. When medically stable he will be discharged to [facility]. erich Jones Dr. Naik consulted, Hgb 7.2.
--- NOTE | 2019-05-30 10:30 | NUR ---
PHYSICAL THERAPY Discussed pt in meeting this AM due to ongoing medical concerns with patients left hip and anemia will defer therapy at this time per case management staff/nsg until MD's further assess. Nicci Posey PT
--- NOTE | 2019-05-30 11:40 | NUR ---
Patient on hold for Occupational Therapy evaluation d/c left hip/pelvis concerns and anemia. Awaiting further orders on weight bearing and activity level. Nazia Wall OTR/l
[2019-05-30 11:49] VITALS: BP 136/75
--- NOTE | 2019-05-30 14:59 | NUR ---
DEVULCANIZER OPERATOR spoke with the patient, sister Unique, and sister Estelle. DEVULCANIZER OPERATOR explained this DEVULCANIZER OPERATOR reached out to Brooke- . Per Brooke at this time their PT does not feel the patient is appropriate for [facility]. Brooke stated there was availability at [facility]. This was explained to the patient who stated he does not want to go to [facility]. Patient stated he would like to be referred to [facility] or [facility]. Patients sisters stated that the patient previously had [facility]. DEVULCANIZER OPERATOR explained [facility] would not be able to follow at SNF and that he had the option of just going home with Hospice. Per sister, patients is really sick at this time and would need about a week to recover. DEVULCANIZER OPERATOR explained we could notify [facility] but they would follow after discharge from SNF. Patient and family understood. DEVULCANIZER OPERATOR contacted Brooke-/RADHA/[facility] to see if there were any beds at [facility]. Brooke stated there were not any at this time. DEVULCANIZER OPERATOR explained that the patient does not want to go to [facility] at this time and a referral would be made to [facility] since no beds were available at [facility]. Brooke stated she would speak with her adminstrator about keeping the patient at . Will await to hear back from Brooke. Will send referral to [facility] to check benefits and review. Pending outcome of Brooke speaking to her Admins. Venue Coordinator Salena has been notified. -CATY Jeffery
[2019-05-30 15:54] VITALS: BP 142/76
[2019-05-30 20:00] VITALS: BP 127/71
[2019-05-31] VITALS (8 sets, daily range): BP systolic 124–146; BP diastolic 71–88
[2019-05-31 07:05] LABS: HEMATOCRIT 24.2 % (42.0-52.0); HEMOGLOBIN 7.2 g/dl (14.0-18.0); MEAN CELL VOLUME 90.3 fl (80.0-94.0); MEAN CORPUSCULAR HGB 26.9 pg (27.0-31.0); MEAN CORPUSCULAR HGB CONC 29.8 g/dl (33.0-37.0); MEAN PLATELET VOLUME 9.9 fl (9.6-12.3); NUCLEATED RED BLOOD CELL 0.3 % (0.0-0.0); PLATELET COUNT AUTOMATED 191 10*3/uL (130-400); RED BLOOD COUNT 2.68 10*6/uL (4.50-5.90); RED CELL DISTRI WIDTH 19.1 % (0-14.5); WHITE BLOOD COUNT 15.7 10*3/uL (4.8-10.8)
--- NOTE | 2019-05-31 07:19 | NUR ---
[facility] per Admin as long as he is skill able. MATH SPECIALIST reached out to PT/OT and spoke with Dawn Bowman. She stated they would see this patient first this morning. MATH SPECIALIST will notify patient and family when at an more appropriate time this morning. -CATY Jeffery
[2019-05-31 07:27] LABS: ALKALINE PHOSPHATASE 155 U/L (45-117); BUN 15 mg/dl (7-24); CHLORIDE 104 mmol/L (98-107); CREATININE 1.02 mg/dL (0.70-1.30); POTASSIUM 3.7 mmol/L (3.5-5.1); SGOT/AST 56 IU/L (3-35); SGPT/ALT 26 U/L (12-78); SODIUM 138 mmol/L (136-145); TOTAL PROTEIN 5.9 gm/dL (6.4-8.2)
--- NOTE | 2019-05-31 07:45 | NUR ---
Occupational Therapy evaluation completed on 5 with full eval to follow. Precautions include fall risk;bed alarm,NWB LLE,nausea; poor stand tolerance, high complexity level 64064. Recommend OT for sit balance/tolerance, BUE str, UE ADLs and stand tolerance for transfer prep and SNF to enable return home w/ . Thank you. Nazia Wall OTR/L
[2019-05-31 07:46] LABS: PLATELET SUFFICIENCY NORMAL (NORMAL); POLYCHROMASIA SLIGHT; SPHEROCYTES FEW; TOTAL CELLS COUNTED 100 #CELLS
--- NOTE | 2019-05-31 08:04 | NUR ---
PT MEDICATED WITH ZOFRAN FOR C/O NAUSEA AT THIS TIME. WILL MONITOR FOR EFFECTIVENESS.
--- NOTE | 2019-05-31 08:11 | NUR ---
PHYSICAL THERAPY Abbeyal completed pt high level of complexity 11431 recomend return to NH with f/u therapy/SNF. PT to work on sitting/standing tolerace, transfers for OOB w maintaining NWB of LLE, as well as strengthening,balance and safety. Nicci Posey PT
--- NOTE | 2019-05-31 08:40 | NUR ---
ACCOUNT SERVICE ASSOCIATE faxed PT/OT Evals to Patti -CATY Jeffery
--- NOTE | 2019-05-31 10:31 | NUR ---
HEALTH EDUCATOR spoke with the patient about returning to [facility]. Patient is agreeable. Patient asked this HEALTH EDUCATOR to contact his . HEALTH EDUCATOR reached out to patients Ruth and explained the situation yesterday and provided the update that the patient is able to return to [facility]. She is also agreeable. Patients sisters Tamiko and Estelle are set to visti the patient today. HEALTH EDUCATOR asked Work Restaurant Expeditor Shanique to notify this HEALTH EDUCATOR so this HEALTH EDUCATOR can speak with them. -CATY Jeffery
--- NOTE | 2019-05-31 13:46 | NUR ---
LADLE WATCHER spoke with patient, patients sister Estelle, and patients brother in law. CATY explained to Estelle and her about the patient being able to return to [facility]. Patient and his family are still agreeable. When medically stable patient will be able to return to [facility]. -CATY Jeffery
--- NOTE | 2019-05-31 14:04 | NUR ---
RANGELANDS CONSERVATION LABORER [facility] RANGELANDS CONSERVATION LABORER informed Mihaela that the patient intends on returning to their service upon discharge from SNF. Mihaela stated this would be okay. RANGELANDS CONSERVATION LABORER will notify [facility] to notify them of patients discharge from their facility. -CATY Jeffery
[2019-06-01 07:38] LABS: HEMATOCRIT 26.8 % (42.0-52.0); MEAN CELL VOLUME 90.5 fl (80.0-94.0); MEAN CORPUSCULAR HGB CONC 29.9 g/dl (33.0-37.0); NUCLEATED RED BLOOD CELL 0.3 % (0.0-0.0); PLATELET COUNT AUTOMATED 185 10*3/uL (130-400); RED BLOOD COUNT 2.96 10*6/uL (4.50-5.90); RED CELL DISTRI WIDTH 18.6 % (0-14.5); WHITE BLOOD COUNT 14.8 10*3/uL (4.8-10.8)
[2019-06-01 07:54] LABS: BUN 14 mg/dl (7-24); CHLORIDE 104 mmol/L (98-107); CREATININE 1.05 mg/dL (0.70-1.30); POTASSIUM 3.7 mmol/L (3.5-5.1); SODIUM 139 mmol/L (136-145)
[2019-06-01 08:00] VITALS: BP 156/82
--- NOTE | 2019-06-01 08:00 | NUR ---
VITALS STABLE. LUCAS, A&OX3. HEART SOUNDS REGULAR. LUNGS DIMINISHED THROUGHOUT. NON PRODUCTIVE COUGH AT TIME OF ASSESSMENT. 1+ PITTING EDEMA ON LLE, SKIN PINK WARM AND DRY. PPP.<3 CAPILLARY REFILL. DRESSINGS DRY AND INTACT ON LEFT ELBOW, LEFT FOREARM AND AUDELIA AREA. IV SITES ON LEFT AC AND RIGHT HAND DRESSINGS INTACT, NO REDNESS OR SWELLING. PT COMPLAINS ACHING PAIN TO LLE, 7/10, METHODONE GIVEN AT SCHEDULED TIME. WILL CONTINUE TO ASSESS. BOBBY AKERSCC
[2019-06-01 08:01] LABS: OVALOCYTES FEW; PLATELET SUFFICIENCY NORMAL (NORMAL); POLYCHROMASIA SLIGHT; SCHISTOCYTES FEW; TOTAL CELLS COUNTED 100 #CELLS
[2019-06-01] MEDS ORDERED: METHADONE HYDRO10 MG PO (08:46)
--- NOTE | 2019-06-01 09:15 | NUR ---
DIRECTOR STUDENT UNION notified of patients discharge. DIRECTOR STUDENT UNION spoke with MARTHA Vale. DIRECTOR STUDENT UNION spoke with Bishop Daley and scheduled an 11am transport. DIRECTOR STUDENT UNION notified Work Sales Enablement Consultant Shanique of transport time, Zac, and spoke with patients Ruth. DIRECTOR STUDENT UNION will fax discharge orders to [facility]. -CATY Jeffery
--- NOTE | 2019-06-01 11:05 | NUR ---
REPORT GIVEN TO MY THE NURSE AT THE [facility]. BOBBY AKERSCC
--- NOTE | 2019-06-01 12:02 | NUR ---
Discharge instructions reviewed with patient/family. Patient receptive and verbalizes understanding. Follow-up care arranged. Written instructions given to patient/ambulance. Pt taken by ambulance to [facility] for therapy and will return home with [facility] following rehab. IV sites removed. TERESA SONI
--- NOTE | 2019-06-01 12:04 | NUR ---
Discharge instructions reviewed with patient/family. Patient receptive and verbalizes understanding. Follow-up care arranged. Written instructions given to patient/family. [place] removed. Transported via [facility]. Condition stable. CINDY Chiang KATHY P
--- NOTE | 2019-06-05 07:35 | NUR ---
OCCUPATIONAL THERAPY CO-SIGN I approve of the Occupational Therapy notes written above. SANTOS GRIGSBY OTR/Jay
== END 2019-06-01 12:11 | disposition other institution (70) | DRG 542 ==
LOC: ED 12:03 → 5E 15:20 → EDHOLD 15:20 → 5E 15:54
PROVIDERS: Internal Medicine; Nurse Practitioner Family; Registered Nurse; Student in an Organized Health Care Education/Training Program; ADMIT Internal Medicine
PROC: 30233N1 Transfusion of Nonautologous Red Blood Cells into Peripheral Vein, Percutaneous Approach (ICD-10-PCS; principal; 2019-05-29)
DX: C79.51 Secondary malignant neoplasm of bone (principal); E43 Unspecified severe protein-calorie malnutrition; R65.11 Systemic inflammatory response syndrome (SIRS) of non-infectious origin with acute organ dysfunction; N17.0 Acute kidney failure with tubular necrosis; I50.32 Chronic diastolic (congestive) heart failure; I13.0 Hypertensive heart and chronic kidney disease with heart failure and stage 1 through stage 4 chronic kidney disease, or unspecified chronic kidney disease; C64.2 Malignant neoplasm of left kidney, except renal pelvis; W19.XXXA Unspecified fall, initial encounter; I25.10 Atherosclerotic heart disease of native coronary artery without angina pectoris; N18.3 Chronic kidney disease, stage 3 (moderate); E11.22 Type 2 diabetes mellitus with diabetic chronic kidney disease; F32.9 Major depressive disorder, single episode, unspecified; K21.9 Gastro-esophageal reflux disease without esophagitis; E78.5 Hyperlipidemia, unspecified; E03.9 Hypothyroidism, unspecified; R91.1 Solitary pulmonary nodule; E83.52 Hypercalcemia; D64.9 Anemia, unspecified; Z66 Do not resuscitate; Z51.5 Encounter for palliative care; E53.8 Deficiency of other specified B group vitamins; R52 Pain, unspecified; Y92.128 Other place in nursing home as the place of occurrence of the external cause; Y93.89 Activity, other specified; Y99.8 Other external cause status; M89.8X9 Other specified disorders of bone, unspecified site; Z68.29 Body mass index [BMI] 29.0-29.9, adult; Z85.46 Personal history of malignant neoplasm of prostate; Z95.5 Presence of coronary angioplasty implant and graft; Z90.49 Acquired absence of other specified parts of digestive tract; Z90.5 Acquired absence of kidney; Z87.891 Personal history of nicotine dependence; Z80.42 Family history of malignant neoplasm of prostate; Z80.8 Family history of malignant neoplasm of other organs or systems

== ENCOUNTER 2019-07-01 08:46 | Inpatient (IN) | payer MEDICARE, BC ==
[~2019-07-01] VITALS: Ht 182.9 cm; Wt 104.0 kg
[~2019-07-01 08:46] MED LIST changes: +METHADONE HYDRO10 MG PO
[2019-07-01 08:48] VITALS: BP 156/88
--- NOTE | 2019-07-01 09:20 | NUR ---
#24 IV SITE LEFT WRIST PLACED BY NSG HOME ARRIVED NON-FUNCTIONAL AND TAPOED TO SKIN BENT OVER ITSELF. SITE DISCONTINUED.
--- NOTE | 2019-07-01 09:22 | NUR ---
URINE ORDER, DR CHAVES STATES TO FAMILY THAT HE DOESN'T WANT HIM CATHETERIZED FOR THIS SPECIMEN, FAMILY REPORT THIS INFO TO ME WHEN I ASKED PT IF I COULD CATH HIM.
[2019-07-01 09:35] LABS: HEMATOCRIT 28.5 % (42.0-52.0); MEAN CELL VOLUME 92.2 fl (80.0-94.0); MEAN CORPUSCULAR HGB 25.9 pg (27.0-31.0); MEAN CORPUSCULAR HGB CONC 28.1 g/dl (33.0-37.0); MEAN PLATELET VOLUME 9.6 fl (9.6-12.3); PLATELET COUNT AUTOMATED 172 10*3/uL (130-400); RED BLOOD COUNT 3.09 10*6/uL (4.50-5.90); WHITE BLOOD COUNT 10.2 10*3/uL (4.8-10.8)
[2019-07-01 09:51] LABS: ACT PARTIAL THROMBO TIME 26.8 SECONDS (20.0-32.1)
[2019-07-01 09:52] LABS: ALBUMIN 2.1 gm/dl (3.1-4.5); ALKALINE PHOSPHATASE 141 U/L (45-117); BUN 13 mg/dl (7-24); CHLORIDE 103 mmol/L (98-107); CREATININE 0.91 mg/dL (0.70-1.30); PHOSPHOROUS 2.7 mg/dL (2.5-4.9); POTASSIUM 4.5 mmol/L (3.5-5.1); SGOT/AST 28 IU/L (3-35); SGPT/ALT 11 U/L (12-78); SODIUM 142 mmol/L (136-145); TOTAL PROTEIN 5.9 gm/dL (6.4-8.2)
[2019-07-01 09:53] LABS: TOTAL CELLS COUNTED 100 #CELLS
[2019-07-01 09:54] LABS: PLATELET SUFFICIENCY NORMAL (NORMAL); POLYCHROMASIA SLIGHT; SCHISTOCYTES FEW; STOMATOCYTE FEW
[2019-07-01 10:10] LABS: TROPONIN I 0.016 ng/ml (<0.045)
[2019-07-01 11:35] LABS: BILIRUBIN NEGATIVE (NEGATIVE); BLOOD NEGATIVE (NEGATIVE); CLARITY SL CLOUDY (CLEAR); COLOR YELLOW (YELLOW); GLUCOSE NEGATIVE (NEGATIVE); KETONE NEGATIVE (NEGATIVE); LEUKO ESTERASE NEGATIVE (NEGATIVE); NITRITE NEGATIVE (NEGATIVE); PH 5.5 (5.0-9.0); SPECIFIC GRAVITY >= 1.030 (1.005-1.030); UROBILINOGEN 0.2 E.U./dl (0.2-1.0)
[2019-07-01 11:43] LABS: BACTERIA 1+; HYALINE CAST 16-20; MUCOUS 2+
--- NOTE | 2019-07-01 11:59 | NUR ---
LACTIC ACID ON P[ATIENT 4.5 DR CHAVES NOTIFIED.
--- NOTE | 2019-07-01 13:23 | NUR ---
FAMILY NOW COMES TO THE DESK TO STATES THEY MISTAKENLY TOLD THE HOSPITALIST THAT THEY HAD [facility]ED [facility] BUT IT IS [facility] THEY USED BEFORE AND WOULD TO USE AGAIN. I DID CALL [facility] AND SPOKE TO CASSIE WHO SAID SHE WOULD CONTACT THE ADMISSION NURSE. THEY ASKED ME TO GATHER SOME FAMILY DEMOGRAPHICS, SEE BELOW: KAREN CONNELLY - CELL - [phone] SON JENIFFER - CELL - [phone] [facility] - [phone]
[2019-07-01 13:53] VITALS: BP 127/69
--- NOTE | 2019-07-01 14:40 | NUR ---
[facility] NOW CALLS BACK, STATES THEY WILL BE UNABLE TO SEND AN ADMISSION NURSE UNTIL POSSIBLY TOMORROW. THEY ASK TO FAX DEMO'S, ED CHART, DNR ORDER, CONSULT ORDER FOR [facility] ALL TO [phone] A "NEW REFERRAL". I SPOKE WITH MARTHA KANG. FAMILY AT BEDSIDE MADE AWARE.
[2019-07-01 16:30] VITALS: BP 146/83
--- NOTE | 2019-07-01 16:30 | NUR ---
Time: 1629 A 69 year old MALE admitted to 5E under services of MARVIN DILLON DO. Pt. arrived via stretcher from ER. Chief complaint: ABNORMAL BLOOD WORK AT [facility], ANEMIA, PALLOR, BILATERAL LEGS SWELLING. JERONIMO HATCH
[2019-07-01 16:49] VITALS: BP 146/83
[2019-07-01] MEDS ORDERED: Methadone Hydro10 MG PO (17:04)
[2019-07-01] MEDS ORDERED: MIRALAX POWDER17 G1 PO (17:07)
[2019-07-01] MEDS ORDERED: PROTONIX TR40 M1 PO (17:08)
[2019-07-01] MEDS ORDERED: ZOLOFT50 MG PO (17:08)
[2019-07-01] MEDS ORDERED: METOPROLOL SUCC25 M2 PO (17:08)
[2019-07-01] MEDS ORDERED: NORVASC5 MG PO (17:09)
[2019-07-01] MEDS ORDERED: LEVOTHYROXINE125 MCG PO (17:10)
[2019-07-01] MEDS ORDERED: ATIVAN1 MG PO (17:10)
[2019-07-01] MEDS ORDERED: COZAAR50 M1 PO (17:11)
[2019-07-01] MEDS ORDERED: MAGNESIUM OXID500 MG PO (17:11)
--- NOTE | 2019-07-01 17:13 | NUR ---
MED REC UPDATED/CORRECTED USING MEDS LIST SENT FROM [facility].
--- NOTE | 2019-07-01 17:33 | NUR ---
DR. DIEGO NOTIFIED OF MOST RECENT LACTIC ACID RESULT.
--- NOTE | 2019-07-01 17:36 | NUR ---
MEDICATED WITH PRN IV ZOFRAN FOR NAUSEA/DRY HEAVES AT THIS TIME.
--- NOTE | 2019-07-01 19:50 | NUR ---
PT SITTING UP IN BED. DENIES ANY PAIN AT THIS TIME. A CUP OF ICE PROVIDED PER REQUEST. WILL MONITOR. CALL LIGHT IN REACH. BED ALARM INTACT.
[2019-07-01 20:00] VITALS: BP 147/67
[2019-07-02] VITALS: BP 148/71
[2019-07-02 06:47] LABS: HEMATOCRIT 28.6 % (42.0-52.0); HEMOGLOBIN 7.9 g/dl (14.0-18.0); MEAN CORPUSCULAR HGB 25.4 pg (27.0-31.0); MEAN CORPUSCULAR HGB CONC 27.6 g/dl (33.0-37.0); MEAN PLATELET VOLUME 9.9 fl (9.6-12.3); PLATELET COUNT AUTOMATED 173 10*3/uL (130-400); RED BLOOD COUNT 3.11 10*6/uL (4.50-5.90); RED CELL DISTRI WIDTH 17.9 % (0-14.5); WHITE BLOOD COUNT 9.6 10*3/uL (4.8-10.8)
[2019-07-02 07:00] LABS: BUN 14 mg/dl (7-24); CHLORIDE 104 mmol/L (98-107); POTASSIUM 4.2 mmol/L (3.5-5.1); SODIUM 143 mmol/L (136-145)
[2019-07-02 07:27] LABS: OVALOCYTES FEW; PLATELET SUFFICIENCY NORMAL (NORMAL); POLYCHROMASIA SLIGHT; TOTAL CELLS COUNTED 100 #CELLS
--- NOTE | 2019-07-02 07:51 | NUR ---
LAB CALLED WITH +BC. DR MONTANO AND DR WALTER NOTIFIED
[2019-07-02 08:00] VITALS: BP 175/72
--- NOTE | 2019-07-02 08:13 | NUR ---
PHYSICAL THERAPY Screen received as well as PT orders will follow thank you Nicci Posey PT
--- NOTE | 2019-07-02 08:25 | NUR ---
Received order for [facility]. Contacted facility and faxed referral.
--- NOTE | 2019-07-02 08:56 | NUR ---
Nursing screen and Occupational Therapy referral received. Thank you. Nazia Wall OTR/l
--- NOTE | 2019-07-02 09:15 | NUR ---
DANIEL CALLED AND SPOKE WITH . HOSPICE WILL BE HERE BY 11AM PER THE .
--- NOTE | 2019-07-02 09:30 | NUR ---
PT MEDICATED WITH ZOFRAN IV FOR C/O NAUSEA AND VOMITING. CALL LIGHT IN REACH. AT BEDSIDE. WILL MONITOR
--- NOTE | 2019-07-02 10:50 | NUR ---
Hospice present for consult. Hold OT referral until after hospice consult. Nazia Wall OTR/l
--- NOTE | 2019-07-02 11:30 | NUR ---
DANIEL IN ROOM WITH PATIENT AND .
--- NOTE | 2019-07-02 11:55 | NUR ---
HOSPICE STATES PT WOULD LIKE TO SEE IF HE COULD RESKILL FOR PT/OT AT [facility] INSTEAD OF HOSPICE. DR WALTER NOTIFIED OF PT PLAN TO HOPEFULLY RETURN TO [facility] FOR PT/OT. ALSO NOTIFIED PT MED REC MEDS NEEDS ORDERED.
--- NOTE | 2019-07-02 13:17 | NUR ---
[facility] nurse in to say she discussed services with patient who is of sound mind. He stated he feels good and doesn't want any hospice services at this time. He plans to return to [facility] skilled rehab and continue to strengthen his upper body.
--- NOTE | 2019-07-02 13:45 | NUR ---
clinical updates faxed to [facility] for review. patient is ok to return when medically stablem
[2019-07-02 16:00] VITALS: BP 154/62; BP 155/78
[2019-07-02 20:00] VITALS: BP 145/78
[2019-07-03] VITALS: BP 158/80
--- NOTE | 2019-07-03 06:30 | NUR ---
PATIENT CALLED OUT STATED HE FELT LIKE HE NEED MORE AIR. NOTED MOIST COUGH, PATIENT WAS DOWN IN BED. PATIENT REPOSITIONED UP IN BED WITH HOB ELEVATED. SPO2=97% ON 3L NC. PATIENT ENCOURAGED TO TURN/DEEP BREATH AND COUGH. PATIENT STATED UNDERSTANDING AND DEMONSTRATED TECHNIQUE.
[2019-07-03 06:57] LABS: HEMATOCRIT 31.4 % (42.0-52.0); HEMOGLOBIN 8.7 g/dl (14.0-18.0); MEAN CELL VOLUME 92.9 fl (80.0-94.0); MEAN CORPUSCULAR HGB 25.7 pg (27.0-31.0); MEAN CORPUSCULAR HGB CONC 27.7 g/dl (33.0-37.0); MEAN PLATELET VOLUME 9.6 fl (9.6-12.3); PLATELET COUNT AUTOMATED 186 10*3/uL (130-400); RED BLOOD COUNT 3.38 10*6/uL (4.50-5.90); RED CELL DISTRI WIDTH 18.1 % (0-14.5); WHITE BLOOD COUNT 10.4 10*3/uL (4.8-10.8)
[2019-07-03 07:25] LABS: BUN 12 mg/dl (7-24); CHLORIDE 102 mmol/L (98-107); POTASSIUM 3.9 mmol/L (3.5-5.1); SODIUM 141 mmol/L (136-145)
[2019-07-03 08:00] VITALS: BP 151/88
[2019-07-03 08:03] LABS: PLATELET SUFFICIENCY NORMAL (NORMAL); POLYCHROMASIA SLIGHT; TOTAL CELLS COUNTED 100 #CELLS
[2019-07-03 08:04] LABS: STOMATOCYTE FEW
--- NOTE | 2019-07-03 08:30 | NUR ---
Occupational therapy orders received and chart reviewed. Patient was supine in bed with HOB elevated, on 3L02. Following OT/PT introductions and education on the value of therapy, patient was unsure of whether to participate in an e evaluation. Patient stated "Ask my nurse." The patient's nurse, Petra, gave an approval that patient was medically stable and could participate in OT/PT. OT/PT returned to the room and re-educated patient on the benefits of therapy and discussion with nurse to return to [facility]. Patient stating, stated "I'd rather wait." Will return after lunch. Thank you. Ivone Summers, OTR/L
--- NOTE | 2019-07-03 08:33 | NUR ---
PHYSICAL THERAPY Attempted to see pt in room for evaluation per pt to check with nurse to see if he is ok to participate with therapy, spoke with primary nurse Petra and states pt medically stable. Returned to room ed pt on discussion with nurse as well as role of PT/OT for rehab in order to return to [facility]. Pt states he understands but declining at this time wants to wait until after lunch when his will be here, will follow discusse with KATHE Posey PT
--- NOTE | 2019-07-03 09:00 | NUR ---
case management visits with patient, he was alert and oriented to person and place, discussed with him being referred to a short term usp and that he needed to work with therapies to qualify for SNF. patient very weak at this time, stated he would work with rehab services this afternoon, also educated him that he needed to work with rehab in order to qualify for short term usp, patient stated he understood, case management will follow
--- NOTE | 2019-07-03 13:50 | NUR ---
Occupational therapy orders received and OT evaluation completed in full on floor five. Patient precautions include fall risk, 3L O2, L LE NWB, L femoral head mass/removal 04/2019, lethargic. Per OT humphrey, OT recommends patient return to his SNF. Patient complexity is high, 51395. Thank you for the referral. Ivone Summers, OTR/L
--- NOTE | 2019-07-03 14:31 | NUR ---
[facility] is only able to hold the patients bed until 07/04/2019. -CATY Jeffery
--- NOTE | 2019-07-03 14:50 | NUR ---
PHYSICAL THERAPY Abbeyal completed high level of complexity 64917 recomend discharge back to facilty f/u therapy as appropriate/SNF. PT to work on strengthening,ROM bed mobility, transfers as able to tolerate. Nicci Posey PT
[2019-07-03 16:00] VITALS: BP 146/64
[2019-07-03 20:00] VITALS: BP 119/62
--- NOTE | 2019-07-03 21:51 | NUR ---
NOTIFIED [facility]AC[facility] OF [facility] OF 27.6. PER PHARMACY HOLD SCHEDULED DOSE OF [facility] TO [place]. DR. ENGEL MADE AWARE. WILL CONTINUE TO MONITOR.
--- NOTE | 2019-07-03 22:00 | NUR ---
PATIENT MEDICATED WITH SCHEDULED METHADONE. RATES HIS PAIN 5/10. VOICES NO OTHER COMPLAINTS AT THIS TIME. WILL CONTINUE TO [facility].
[2019-07-04] VITALS: BP 141/68
--- NOTE | 2019-07-04 01:44 | NUR ---
PATIENT SLEEPING. NO SIGNS OF DISTRESS. RESPIRATIONS EASY NON LABORED. BED IN LOWEST POSITION CALL LIGHT WITHIN REACH. BED ALARM ON WILL CONTINUE TO MONITOR.
[2019-07-04 07:05] LABS: HEMATOCRIT 29.4 % (42.0-52.0); HEMOGLOBIN 8.1 g/dl (14.0-18.0); MEAN CELL VOLUME 93.3 fl (80.0-94.0); MEAN CORPUSCULAR HGB 25.7 pg (27.0-31.0); MEAN CORPUSCULAR HGB CONC 27.6 g/dl (33.0-37.0); MEAN PLATELET VOLUME 9.9 fl (9.6-12.3); PLATELET COUNT AUTOMATED 153 10*3/uL (130-400); RED BLOOD COUNT 3.15 10*6/uL (4.50-5.90); RED CELL DISTRI WIDTH 18.2 % (0-14.5); WHITE BLOOD COUNT 8.5 10*3/uL (4.8-10.8)
[2019-07-04 07:35] LABS: CHLORIDE 101 mmol/L (98-107); POTASSIUM 3.6 mmol/L (3.5-5.1); SODIUM 142 mmol/L (136-145)
[2019-07-04 07:39] LABS: BUN 12 mg/dl (7-24); CREATININE 1.06 mg/dL (0.70-1.30)
[2019-07-04 07:55] LABS: PLATELET SUFFICIENCY NORMAL (NORMAL); POLYCHROMASIA SLIGHT; TOTAL CELLS COUNTED 100 #CELLS
[2019-07-04 07:56] LABS: OVALOCYTES FEW; STOMATOCYTE FEW
[2019-07-04 08:00] VITALS: BP 146/69
--- NOTE | 2019-07-04 09:00 | NUR ---
Patient resting quietly with no c/o discomfort. Respirations easy and regular, on O2. Vital signs stable. No overt distress. LUKE CHENG R
[2019-07-04] MEDS ORDERED: Methadone Hydro10 MG PO (11:16)
[2019-07-04] MEDS ORDERED: LASIX40 MG PO (11:16)
[2019-07-04] MEDS ORDERED: OXYCODONE HCL10 M1 PO (11:16)
[2019-07-04] MEDS ORDERED: ATIVAN1 MG PO (11:16)
--- NOTE | 2019-07-04 11:20 | NUR ---
OT NOTE Pt was seen this A.M. 1:1 for 15 mnute OT session. Upon arrival pt was supine in bed. Pt identified by name and and had complaints of back pain which he did not rate on 0-10 pain scale. Pt presented to therapy with continuous 3L-O2 via NC which he remained on throughout the entire session. While supine in bed pt donned gown with modA. Pt then transferred supine to sit EOB with maxA X 2. While sitting EOB challenged pt's dynamic sitting balance while weight shifting, crossing midline, and reaching over all planes. Pt was able to maintain F+/G- sitting balance throughout. Pt tolerated aprox 5 minutes sitting EOB before requesting to lay back down. Pt transferred sit to supine with maxA X 2. There he was left with call light in hand, tray table in place, and bed alarm activated for safety. Continue with rec D/C plan to SNF. KISHA Corey
--- NOTE | 2019-07-04 12:48 | NUR ---
PHYSICAL THERAPY TREATMENT TIME: 11:05 AM - 11:15 AM 10 MINUTES TOTAL PATIENT WAS SUPINE IN BED WITH HEAD OF BED ELEVATED UPON THIS LEATHER FITTER ARRIVING IN THE PATIENT'S ROOM. PATIENT GIVES INFORMED CONSENT FOR TREATMENT. PATIENT WAS IDENTIFIED BY NAME CASSI FLOREZ ON WRISTBAND. PATIENT IS ON 3 LITERS OF SPO2 VIA NASAL CANULA. PATIENT IS NWB ON L LE FROM RECENT SURGERY ON L FEMORAL HEAD. PATIENT TRANSFERRED SUPINE TO SITTING AT EOB WITH MAX A X 2. PATIENT SAT ON EOB FOR 5 MINUTES WITH SBA. PATIENT HAS A FLACCID AND WEAK L LE. PATIENT PERFORMED LE THER EX IN SITTING AT EOB INCLUDING LAQs, MARCHES, AND HEEL RAISES ON R LE X 15 REPS EACH. PATIENT BECAME FATIGUED AND HAS INCREASED GROIN PAIN IN SITTING AT EOB AND REQUESTED TO TRANSFER BACK TO SUPINE IN BED. PATIENT TRANSFERRED BACK TO SUPINE IN BED WITH MAX A X 2. PATIENT WAS LEFT IN SUPINE IN BED WITH HEAD OF BED ELEVATED, CALL LIGHT WITHIN REACH AND BED ALARM ACTIVATED. PATIENT WAS 1:1 WITH THIS LEATHER FITTER FOR 10 MINUTES TOTAL. DAKOTA ANDRE LEATHER FITTER
--- NOTE | 2019-07-04 13:29 | NUR ---
PRECINCT POLICE CAPTAIN notified of patient discharge. PRECINCT POLICE CAPTAIN spoke with MARTHA Zambrano. PRECINCT POLICE CAPTAIN reached out to [facility] and scheduled a 2:30pm transport. PRECINCT POLICE CAPTAIN notified MARTHA Zambrano of this transport time. Per Kenya is at bedside with patient. PRECINCT POLICE CAPTAIN faxed/notified [facility], and faxed demographics to [facility]. -CATY Jeffery
--- NOTE | 2019-07-04 14:35 | NUR ---
Called report to [facility] spoke to Brooke.
--- NOTE | 2019-07-04 14:41 | NUR ---
Discharge instructions reviewed with patient/family. Patient receptive and verbalizes understanding. Follow-up care arranged. Written instructions given to patient/family. LUKE CHENG
--- NOTE | 2019-07-05 07:30 | NUR ---
PHYSICAL THERAPY CO-SIGN I approve of the Physical Therapy notes written above. Nicci Posey PT
[2019-07-05] MEDS ORDERED: ZOFRAN4 MG PO (21:51)
--- NOTE | 2019-07-06 07:54 | NUR ---
OCCUPATIONAL THERAPY CO-SIGN I approve of the Occupational Therapy notes written above. JAZMINE DUGAN, OTR/L
== END 2019-07-04 14:52 | disposition other institution (70) | DRG 70 ==
LOC: ED 08:46 → 5E 10:24 → EDHOLD 10:24 → 5E 15:58
PROVIDERS: Emergency Medicine; Family Medicine; ADMIT Emergency Medicine
DX: G93.41 Metabolic encephalopathy (principal); E43 Unspecified severe protein-calorie malnutrition; C64.9 Malignant neoplasm of unspecified kidney, except renal pelvis; E87.2 Acidosis; I50.32 Chronic diastolic (congestive) heart failure; E83.52 Hypercalcemia; Z66 Do not resuscitate; Z51.5 Encounter for palliative care; D64.9 Anemia, unspecified; E83.41 Hypermagnesemia; I25.10 Atherosclerotic heart disease of native coronary artery without angina pectoris; K21.9 Gastro-esophageal reflux disease without esophagitis; F32.9 Major depressive disorder, single episode, unspecified; I11.0 Hypertensive heart disease with heart failure; E78.5 Hyperlipidemia, unspecified; E03.9 Hypothyroidism, unspecified; E11.9 Type 2 diabetes mellitus without complications; Z68.31 Body mass index [BMI] 31.0-31.9, adult; Z85.46 Personal history of malignant neoplasm of prostate; Z95.5 Presence of coronary angioplasty implant and graft; Z90.5 Acquired absence of kidney; Z90.49 Acquired absence of other specified parts of digestive tract; Z87.891 Personal history of nicotine dependence; Z80.42 Family history of malignant neoplasm of prostate; Z79.899 Other long term (current) drug therapy

== ENCOUNTER 2019-07-05 16:24 | Inpatient (IN) | payer MEDICARE, BC ==
[~2019-07-05] VITALS: Ht 182.9 cm; Wt 100.3 kg
[~2019-07-05 16:24] MED LIST changes: +COZAAR50 M1 PO; +LASIX40 MG PO; +MAGNESIUM OXID500 MG PO; +METOPROLOL SUCC25 M2 PO; +MIRALAX POWDER17 G1 PO; +PROTONIX TR40 M1 PO; +ZOLOFT50 MG PO
[2019-07-05 16:25] VITALS: BP 149/85
[2019-07-05 17:16] LABS: BILIRUBIN NEGATIVE (NEGATIVE); BLOOD NEGATIVE (NEGATIVE); CLARITY CLEAR (CLEAR); COLOR YELLOW (YELLOW); GLUCOSE NEGATIVE (NEGATIVE); KETONE NEGATIVE (NEGATIVE); LEUKO ESTERASE NEGATIVE (NEGATIVE); NITRITE NEGATIVE (NEGATIVE); PH 5.5 (5.0-9.0); UROBILINOGEN 0.2 E.U./dl (0.2-1.0)
[2019-07-05 17:27] LABS: EPITHELIAL CELLS 0-2
[2019-07-05 17:32] LABS: BASO % 0.4 % (0.0-1.0); EOS # 0.1 10*3/uL (0.0-0.4); EOS % 0.9 % (1.0-4.0); HEMATOCRIT 28.5 % (42.0-52.0); LYMPH # 0.3 10*3/uL (1.3-4.4); LYMPH % 3.6 % (27.0-41.0); MEAN CELL VOLUME 91.6 fl (80.0-94.0); MEAN CORPUSCULAR HGB 25.7 pg (27.0-31.0); MEAN CORPUSCULAR HGB CONC 28.1 g/dl (33.0-37.0); MEAN PLATELET VOLUME 9.7 fl (9.6-12.3); MONO # 1.2 10*3/uL (0.1-1.0); NEUT # 6.6 10*3/uL (2.3-7.9); NEUT % 78.5 % (47.0-73.0); PLATELET COUNT AUTOMATED 161 10*3/uL (130-400); RED BLOOD COUNT 3.11 10*6/uL (4.50-5.90); RED CELL DISTRI WIDTH 17.9 % (0-14.5); WHITE BLOOD COUNT 8.4 10*3/uL (4.8-10.8)
[2019-07-05 17:35] VITALS: BP 144/88
[2019-07-05 17:51] LABS: ALKALINE PHOSPHATASE 119 U/L (45-117); BUN 11 mg/dl (7-24); CHLORIDE 103 mmol/L (98-107); CREATININE 1.07 mg/dL (0.70-1.30); LIPASE 126 U/L (73-393); POTASSIUM 3.6 mmol/L (3.5-5.1); SGOT/AST 27 IU/L (3-35); SGPT/ALT 10 U/L (12-78); SODIUM 143 mmol/L (136-145); TOTAL PROTEIN 5.8 gm/dL (6.4-8.2)
[2019-07-05 17:54] LABS: TROPONIN I < 0.015 ng/ml (<0.045)
[2019-07-05 18:04] LABS: ACT PARTIAL THROMBO TIME 28.5 SECONDS (20.0-32.1); INTERNATIONAL NORM RATIO 1.1 (2.0-3.5)
[2019-07-05 18:35] VITALS: BP 136/92
[2019-07-05 19:30] VITALS: BP 131/94
[2019-07-05 20:29] VITALS: BP 130/88
[2019-07-05 21:15] VITALS: BP 144/65
--- NOTE | 2019-07-05 21:15 | NUR ---
Time: 2114 A 69 year old MALE admitted to 5E under services of FREDDIE BENTON DO. Pt. arrived via stretcher from ER. Chief complaint: CAME IN FROM [facility] WITH C/O CHANGE IN MENTAL STATUS,BEING SHAKEY AND SWEATY. ALISA ADAMS
[2019-07-05] MEDS ORDERED: ZOFRAN4 MG PO (21:51)
--- NOTE | 2019-07-05 21:54 | NUR ---
NOTIFIED DR. BARILLAS THAT MED REC UPDATED WITH LIST FROM [facility].
[2019-07-06] VITALS: BP 147/80
--- NOTE | 2019-07-06 | NUR ---
PATIENT REFUSING BRAD CARRANZA AND SCD'S. WILL ATTEMPT AGAIN LATER.
--- NOTE | 2019-07-06 03:20 | NUR ---
PATIENT AGAIN STATED HE DOES NOT WANT SCD'D OR BRAD HOSE. PATIENT WAS UNCLEAR ABOUT WHERE HE WAS AND WHAT HE IS DOING HERE. REORIENTED EASILY. REINFORCED USE OF CALL LIGHT.
[2019-07-06 06:20] LABS: HEMATOCRIT 28.2 % (42.0-52.0); HEMOGLOBIN 7.8 g/dl (14.0-18.0); MEAN CELL VOLUME 93.1 fl (80.0-94.0); MEAN CORPUSCULAR HGB 25.7 pg (27.0-31.0); MEAN CORPUSCULAR HGB CONC 27.7 g/dl (33.0-37.0); MEAN PLATELET VOLUME 10.2 fl (9.6-12.3); PLATELET COUNT AUTOMATED 153 10*3/uL (130-400); RED BLOOD COUNT 3.03 10*6/uL (4.50-5.90); RED CELL DISTRI WIDTH 17.9 % (0-14.5); WHITE BLOOD COUNT 8.3 10*3/uL (4.8-10.8)
[2019-07-06 06:37] LABS: ALBUMIN 1.9 gm/dl (3.1-4.5); BUN 11 mg/dl (7-24); CHLORIDE 105 mmol/L (98-107); CREATININE 0.98 mg/dL (0.70-1.30); POTASSIUM 3.5 mmol/L (3.5-5.1); SGOT/AST 24 IU/L (3-35); SGPT/ALT 10 U/L (12-78); SODIUM 144 mmol/L (136-145); TOTAL PROTEIN 5.5 gm/dL (6.4-8.2)
[2019-07-06 06:39] LABS: ALKALINE PHOSPHATASE 121 U/L (45-117); PHOSPHOROUS 2.4 mg/dL (2.5-4.9)
[2019-07-06 06:45] LABS: PLATELET SUFFICIENCY NORMAL (NORMAL); POLYCHROMASIA SLIGHT; STOMATOCYTE FEW; TOTAL CELLS COUNTED 100 #CELLS
--- NOTE | 2019-07-06 07:47 | NUR ---
Patient presents from [facility]. When medically stable patient can return. -CATY Jeffery
[2019-07-06 08:00] VITALS: BP 161/81
--- NOTE | 2019-07-06 09:00 | NUR ---
case management visits with patient, son present, discussed with them patient being recently discharged to [facility] re[facility] and returned to the hospital within a few hours, discussed a discharge plan and patient's son stated he didn't know what their discharge plan is going to be, he would like to discuss the options with the doctor and talk with family and then make a decision, case management/manager social services will follow
[2019-07-06 12:00] VITALS: BP 161/82
--- NOTE | 2019-07-06 14:49 | NUR ---
Patient bed at will be available until Tuesday07/09/2019, unless the patient and family pay a bedhold fee to continue to hold it after this date. -CATY Jeffery
[2019-07-06 16:00] VITALS: BP 150/67
--- NOTE | 2019-07-06 18:54 | NUR ---
PER PHARMACIST GINNA, METHADONE CAN BE CRUSHED PER PATIENT REQUEST.
[2019-07-06 20:00] VITALS: BP 144/72
[2019-07-07] VITALS: BP 149/78
--- NOTE | 2019-07-07 02:20 | NUR ---
24 HR chart check completed.
[2019-07-07 06:03] LABS: BUN 10 mg/dl (7-24); CHLORIDE 104 mmol/L (98-107); CREATININE 0.87 mg/dL (0.70-1.30); PHOSPHOROUS 2.5 mg/dL (2.5-4.9); POTASSIUM 3.6 mmol/L (3.5-5.1); SODIUM 144 mmol/L (136-145)
[2019-07-07 07:44] LABS: HEMATOCRIT 27.8 % (42.0-52.0); HEMOGLOBIN 7.7 g/dl (14.0-18.0); MEAN CELL VOLUME 93.3 fl (80.0-94.0); MEAN CORPUSCULAR HGB 25.8 pg (27.0-31.0); MEAN CORPUSCULAR HGB CONC 27.7 g/dl (33.0-37.0); MEAN PLATELET VOLUME 10.1 fl (9.6-12.3); PLATELET COUNT AUTOMATED 161 10*3/uL (130-400); RED BLOOD COUNT 2.98 10*6/uL (4.50-5.90); RED CELL DISTRI WIDTH 18.2 % (0-14.5); WHITE BLOOD COUNT 8.6 10*3/uL (4.8-10.8)
[2019-07-07 08:00] VITALS: BP 138/70
[2019-07-07 08:17] LABS: PLATELET SUFFICIENCY NORMAL (NORMAL); TOTAL CELLS COUNTED 100 #CELLS
[2019-07-07 08:18] LABS: OVALOCYTES FEW; POLYCHROMASIA SLIGHT
[2019-07-07 12:00] VITALS: BP 150/73
--- NOTE | 2019-07-07 12:33 | NUR ---
PT C/O NAUSEA PRN ZOFRAN GIVEN
--- NOTE | 2019-07-07 13:30 | NUR ---
PT STATES ZOFRAN EFFECTIVE. CALL LIGHT IN REACH. WILL MONITOR
[2019-07-07 16:00] VITALS: BP 150/71
[2019-07-07 20:00] VITALS: BP 139/68
--- NOTE | 2019-07-07 22:03 | NUR ---
SPOKE WITH DR. SINGH AT THIS TIME, PATIENT STATES HE CANNOT TAKE MEDICATIONS UNLESS IT IS CRUSHED AND PATIENT IS TAKING TOPROL XL. HE STATED IT WAS SWITCHED AROUND THE OTHER DAY. THIS NURSE EXPLAINED TO THE PATIENT IT'S EXTENDED RELEASE AND CANNOT CRUSH THIS PILL. DR. SINGH STATED THAT IT WAS OK TO SWITCH MEDICATION TO LOPRESSOR SAME DOSAGE AND TIME
--- NOTE | 2019-07-07 22:24 | NUR ---
PATIENT AT THIS TIME REFUSING LOPRESSOR. EXPLAINED TO PATIENT THAT THIS NURSE JUST HAD TO GET THE MEDICATION SWITCHED OVER. HE STATED WELL THEN I DON'T HAVE TO TAKE IT UNTIL MORNING NOW DO I. I STATED HE STILL NEEDED HIS DOSE TONIGHT IT JUST NEEDED TO BE CHANGED TO SOMETHING THAT COULD BE CRUSHED. PATIENT STATED HE DIDN'T WANT TO TAKE IT NOW.
--- NOTE | 2019-07-07 23:05 | NUR ---
24 HR chart check completed.
[2019-07-08] VITALS: BP 141/73
--- NOTE | 2019-07-08 01:53 | NUR ---
SPOKE WITH DR. SINGH, NOTIFIED HIM THAT PATIENT HAS BEEN HAVING DRY HEAVES OFF AND ON ALL DAY AND THAT ZOFRAN WAS GIVEN EARLIER AND WAS EFFECTIVE, BUT PATIENT IS DRY HEAVING AGAIN. DR. SINGH STATED HE WOULD PUT IN FOR PHENERGAN PRN
--- NOTE | 2019-07-08 02:10 | NUR ---
PRN PHENERGAN GIVEN FOR PT COMPLAINTS OF NAUSEA/DRY HEAVES. CALL LIGHT WITHIN REACH, WILL MONITOR
--- NOTE | 2019-07-08 02:45 | NUR ---
PRN PHENERGAN EFFECTIVE PER PT
[2019-07-08 07:07] LABS: BUN 12 mg/dl (7-24); CHLORIDE 104 mmol/L (98-107); CREATININE 0.89 mg/dL (0.70-1.30); POTASSIUM 3.9 mmol/L (3.5-5.1); SODIUM 144 mmol/L (136-145)
[2019-07-08 07:11] LABS: BASO % 0.3 % (0.0-1.0); EOS # 0.1 10*3/uL (0.0-0.4); EOS % 1.1 % (1.0-4.0); HEMOGLOBIN 7.4 g/dl (14.0-18.0); LYMPH # 0.3 10*3/uL (1.3-4.4); LYMPH % 4.5 % (27.0-41.0); MEAN CELL VOLUME 93.8 fl (80.0-94.0); MEAN CORPUSCULAR HGB 25.7 pg (27.0-31.0); MEAN CORPUSCULAR HGB CONC 27.4 g/dl (33.0-37.0); MEAN PLATELET VOLUME 10.2 fl (9.6-12.3); MONO # 0.9 10*3/uL (0.1-1.0); MONO % 12.2 % (3.0-9.0); PLATELET COUNT AUTOMATED 160 10*3/uL (130-400); RED BLOOD COUNT 2.88 10*6/uL (4.50-5.90); RED CELL DISTRI WIDTH 18.2 % (0-14.5); WHITE BLOOD COUNT 7.6 10*3/uL (4.8-10.8)
[2019-07-08 08:00] VITALS: BP 136/66
--- NOTE | 2019-07-08 09:34 | NUR ---
DR PEREZ NOTIFIED OF CONSULT. REVIEWED LABS AND NEW ORDERS FROM TODAY. SHE STATES SHE WILL BE IN TO SEE THE PATIENT.
--- NOTE | 2019-07-08 10:00 | NUR ---
PHYSICAL THERAPY PT EVAL COMPLETED TODAY ON LEVEL 5: FULL EVALUATION TO FOLLOW.RECOMMEND PT WHILE HERE TO ADDRESS DECREASED STRENGTH ,BALANCE, ENDURANCE AND THUS DECREASED FUNCTIONAL MOBILITY. PT EVAL IS HIGH COMPLEXITY ; 27975. D/C RECOMMENDATIONS ARE TO RETURN TO SNF ON D/C BASED ON CURRENT ASSESSMENT. HOSPICE WAS CONSULTED BUT EVIDENTALLY PATIENT REFUSED AT THIS TIME. THANK YOU FOR REFERRAL ALLEGRA ASCENCIO PT
[2019-07-08 12:00] VITALS: BP 144/64
--- NOTE | 2019-07-08 14:51 | NUR ---
PT C/O SOB AND NOTED WITH MOIST RESPIRATIONS AND CRACKLES THROUGHOUT. DR FERRARI CALLED AND NOTIFIED. DR FERRARI IN TO SEE PT, NEW ORDERS RECIEVED. IVF STOPPED AND IV LASIX GIVEN. PULSE OX 97 ON 3L. WILL MONITOR
--- NOTE | 2019-07-08 14:54 | NUR ---
DR PEREZ IN TO SEE PT
[2019-07-08 15:02] LABS: BASO % 0.4 % (0.0-1.0); EOS # 0.1 10*3/uL (0.0-0.4); EOS % 1.1 % (1.0-4.0); HEMATOCRIT 27.4 % (42.0-52.0); HEMOGLOBIN 7.7 g/dl (14.0-18.0); LYMPH # 0.4 10*3/uL (1.3-4.4); LYMPH % 4.8 % (27.0-41.0); MEAN CELL VOLUME 91.9 fl (80.0-94.0); MEAN CORPUSCULAR HGB 25.8 pg (27.0-31.0); MEAN CORPUSCULAR HGB CONC 28.1 g/dl (33.0-37.0); MEAN PLATELET VOLUME 9.5 fl (9.6-12.3); MONO # 1.1 10*3/uL (0.1-1.0); MONO % 14.6 % (3.0-9.0); NEUT # 5.5 10*3/uL (2.3-7.9); NEUT % 76.2 % (47.0-73.0); PLATELET COUNT AUTOMATED 147 10*3/uL (130-400); RED BLOOD COUNT 2.98 10*6/uL (4.50-5.90); RED CELL DISTRI WIDTH 18.1 % (0-14.5); WHITE BLOOD COUNT 7.2 10*3/uL (4.8-10.8)
[2019-07-08 15:16] LABS: ACT PARTIAL THROMBO TIME 26.8 SECONDS (20.0-32.1)
[2019-07-08 15:20] LABS: BUN 13 mg/dl (7-24); CHLORIDE 104 mmol/L (98-107); CREATININE 1.04 mg/dL (0.70-1.30); PHOSPHOROUS 2.2 mg/dL (2.5-4.9); POTASSIUM 3.4 mmol/L (3.5-5.1); SODIUM 142 mmol/L (136-145)
[2019-07-08 16:00] VITALS: BP 152/83
[2019-07-08 17:34] LABS: PTH INTACT 4.6 pg/mL (18.5-88.0); VITAMIN D, 25-HYDROXY 27.3 ng/mL (30-100)
--- NOTE | 2019-07-08 19:50 | NUR ---
PATIENT AWAKE,A&Ox3. PATIENT HAS NO COMPLAINTS AT THIS TIME. REQUESTS THAT HIS MEDS ARE CRUSHED IN ICE CREAM OR PUDDING. DENIES PAIN AT THIS TIME. SEE SHIFT ASSESSMENT. BED ALARM ON AND CALL LIGHT IN REACH. WILL MONITOR.
[2019-07-08 20:00] VITALS: BP 137/71
--- NOTE | 2019-07-08 23:54 | NUR ---
24 HR chart check completed.
[2019-07-09] VITALS: BP 154/73
--- NOTE | 2019-07-09 | NUR ---
24 HR chart check completed.
[2019-07-09 06:49] LABS: BASO % 0.3 % (0.0-1.0); EOS # 0.1 10*3/uL (0.0-0.4); EOS % 0.6 % (1.0-4.0); HEMATOCRIT 29.3 % (42.0-52.0); HEMOGLOBIN 7.9 g/dl (14.0-18.0); LYMPH # 0.3 10*3/uL (1.3-4.4); LYMPH % 3.3 % (27.0-41.0); MEAN CELL VOLUME 94.2 fl (80.0-94.0); MEAN CORPUSCULAR HGB 25.4 pg (27.0-31.0); MEAN PLATELET VOLUME 9.4 fl (9.6-12.3); MONO # 1.3 10*3/uL (0.1-1.0); MONO % 12.9 % (3.0-9.0); NEUT # 8.1 10*3/uL (2.3-7.9); NEUT % 80.8 % (47.0-73.0); PLATELET COUNT AUTOMATED 164 10*3/uL (130-400); RED BLOOD COUNT 3.11 10*6/uL (4.50-5.90); RED CELL DISTRI WIDTH 18.2 % (0-14.5)
[2019-07-09 06:58] LABS: BUN 11 mg/dl (7-24); CHLORIDE 104 mmol/L (98-107); POTASSIUM 4.1 mmol/L (3.5-5.1); SODIUM 143 mmol/L (136-145)
[2019-07-09 08:00] VITALS: BP 134/68
--- NOTE | 2019-07-09 08:44 | NUR ---
CODE CLERK faxed updates to [facility] -CATY Jeffery
[2019-07-09 12:00] VITALS: BP 129/73
--- NOTE | 2019-07-09 12:11 | NUR ---
STORES ASSISTANT and Landscape Management Technician spoke with the patients and daughter at bedside. Landscape Management Technician and STORES ASSISTANT explained the patient is able to return to [facility]. STORES ASSISTANT explained that after today there would be a bedhold fee and this STORES ASSISTANT could find the cost out for her. Patients was not interested. Patient was agreeable to have the patient return to [facility] to give her time to make a decision about Hospice or possible Detention Place/applying for Medicaid. -DARBY JefferyW
--- NOTE | 2019-07-09 12:33 | NUR ---
SERVICE DESK SPECIALIST spoke with FREDRICK Barrera about patient discharge to . -CATY Jeffery
[2019-07-09] MEDS ORDERED: OXYCODONE HCL10 M1 PO ×2 (12:39→12:40)
[2019-07-09] MEDS ORDERED: Methadone Hydro10 MG PO (12:40)
--- NOTE | 2019-07-09 12:52 | NUR ---
NOTIFIED OF DISCHARGE AND WILL BE IN TO SEE PATIENT PRIOR TO DISCHARGE
--- NOTE | 2019-07-09 12:55 | NUR ---
PHYSICAL THERAPY Patient was approached for therapy session this afternoon and patient was unable to be aroused fro msleep. Patient did awake shortly but the fell quickley back ot sleep. Patient is very lethargic. This REGIONAL BUSINESS MANAGER spoke to MARTHA HORAN and she said that the patient should just be allowed to rest at this time. MARTHA HORAN said that the patient was not doing very well at this time. DAKOTA ANDRE REGIONAL BUSINESS MANAGER
--- NOTE | 2019-07-09 13:12 | NUR ---
Per MARTHA Esparza. has to see the patient before discharge. Patient has to return to today or will lose his bed. -CATY Jeffery
--- NOTE | 2019-07-09 14:22 | NUR ---
CATY notified WOLF Jennings that the patient will need to return to by this evening or will lose his bed at . Patient is still waiting to be seen by Dr. Cortez at this time. -CATY Jeffery
--- NOTE | 2019-07-09 14:38 | NUR ---
NURSE TO NURSE CALLED TO REHAB SU[facility], INFORMED THEM THAT [facility] STILL NEEDS TO SEE PATIENT, UNABLE TO GIVE ARRIVAL TIME
[2019-07-09 16:00] VITALS: BP 134/71
--- NOTE | 2019-07-09 17:27 | NUR ---
Discharge instructions reviewed with patient/family. Patient receptive and verbalizes understanding. Follow-up care arranged. Written instructions given to patient/family. MARQUEZ RIVERA
--- NOTE | 2019-07-11 07:28 | NUR ---
PHYSICAL THERAPY CO-SIGN I approve of the Physical Therapy notes written above. Nicci Posey PT
== END 2019-07-09 17:27 | disposition other institution (70) | DRG 377 ==
LOC: ED 16:24 → 5E 20:28 → EDHOLD 20:28 → 5E 20:53
PROVIDERS: Hospitalist; Internal Medicine; Internal Medicine Nephrology; Physician Assistant; Student in an Organized Health Care Education/Training Program; ADMIT Family Medicine
DX: K92.2 Gastrointestinal hemorrhage, unspecified (principal); E43 Unspecified severe protein-calorie malnutrition; A04.72 Enterocolitis due to Clostridium difficile, not specified as recurrent; I50.32 Chronic diastolic (congestive) heart failure; E87.2 Acidosis; C64.9 Malignant neoplasm of unspecified kidney, except renal pelvis; C79.51 Secondary malignant neoplasm of bone; E83.52 Hypercalcemia; E86.0 Dehydration; F32.9 Major depressive disorder, single episode, unspecified; E03.9 Hypothyroidism, unspecified; E53.8 Deficiency of other specified B group vitamins; K21.9 Gastro-esophageal reflux disease without esophagitis; I11.0 Hypertensive heart disease with heart failure; G89.3 Neoplasm related pain (acute) (chronic); I25.10 Atherosclerotic heart disease of native coronary artery without angina pectoris; D64.9 Anemia, unspecified; F41.9 Anxiety disorder, unspecified; K59.00 Constipation, unspecified; E66.9 Obesity, unspecified; R73.9 Hyperglycemia, unspecified; Z66 Do not resuscitate; Z51.5 Encounter for palliative care; E87.6 Hypokalemia; E83.39 Other disorders of phosphorus metabolism; E88.09 Other disorders of plasma-protein metabolism, not elsewhere classified; Z68.30 Body mass index [BMI] 30.0-30.9, adult; Z90.5 Acquired absence of kidney; Z85.46 Personal history of malignant neoplasm of prostate; Z95.5 Presence of coronary angioplasty implant and graft; Z90.49 Acquired absence of other specified parts of digestive tract; Z87.891 Personal history of nicotine dependence; Z80.42 Family history of malignant neoplasm of prostate; Z80.0 Family history of malignant neoplasm of digestive organs; Z80.8 Family history of malignant neoplasm of other organs or systems; Z79.899 Other long term (current) drug therapy

== ENCOUNTER 2019-07-10 18:41 | Inpatient (IN) | payer MEDICARE, BC ==
[2019-07-10] VITALS (14 sets, daily range): BP systolic 139–171; BP diastolic 77–104
[~2019-07-10] VITALS: Ht 182.9 cm; Wt 99.5 kg
--- NOTE | 2019-07-10 18:58 | NUR ---
NURSE REPORT TO CHUY AGGARWAL RN, FOR CONTINUATION OF CARE.
--- NOTE | 2019-07-10 19:00 | NUR ---
Pt placed on BiPap 12/6 and FiO2 40%. Alarms on and audible.
[2019-07-10 19:32] LABS: HEMATOCRIT 28.9 % (42.0-52.0); HEMOGLOBIN 8.1 g/dl (14.0-18.0); MEAN CELL VOLUME 93.5 fl (80.0-94.0); MEAN CORPUSCULAR HGB 26.2 pg (27.0-31.0); MEAN PLATELET VOLUME 9.9 fl (9.6-12.3); PLATELET COUNT AUTOMATED 190 10*3/uL (130-400); RED BLOOD COUNT 3.09 10*6/uL (4.50-5.90); RED CELL DISTRI WIDTH 18.2 % (0-14.5); WHITE BLOOD COUNT 9.9 10*3/uL (4.8-10.8)
[2019-07-10 19:49] LABS: ALBUMIN 2.3 gm/dl (3.1-4.5); ALKALINE PHOSPHATASE 132 U/L (45-117); BUN 12 mg/dl (7-24); CHLORIDE 101 mmol/L (98-107); CREATININE 1.09 mg/dL (0.70-1.30); POTASSIUM 3.7 mmol/L (3.5-5.1); SGOT/AST 28 IU/L (3-35); SGPT/ALT 11 U/L (12-78); SODIUM 144 mmol/L (136-145); TOTAL PROTEIN 6.4 gm/dL (6.4-8.2)
--- NOTE | 2019-07-10 19:50 | NUR ---
LAB CALLED WITH CRITICAL LACTIC OF 8.8. DR. CASSIDY NOTIFIED.
[2019-07-10 19:52] LABS: TROPONIN I 0.079 ng/ml (<0.045)
[2019-07-10 19:53] LABS: BASOPHILS 2 % (0-1); OVALOCYTES FEW; TOTAL CELLS COUNTED 100 #CELLS
[2019-07-10 19:54] LABS: PLATELET SUFFICIENCY NORMAL (NORMAL); POLYCHROMASIA SLIGHT
--- NOTE | 2019-07-10 22:00 | NUR ---
A 69, admitted to , under the services of CARTER Solitario DO with a diagnosis of SEVERE SEPSIS, RESPIRATORY FAILURE, ELEVATED TROPONIN. Chief complaint is LOW O2 SAT. Patient arrived via ambulance from ER. Monitor applied. Initial assessment completed. Vital signs taken and recorded. CARTER SOLITARIO DO notified of admission to the unit. Orders received. See assessment for past medical history, medications and allergies. Patient and/or family oriented to unit. visitation policy reviewed. Clothing/patient valuable form completed. PHILOMENA CURTIS
--- NOTE | 2019-07-10 22:30 | NUR ---
PATIENT NOT ON BIPAP AT THIS TIME D/T 02 SAT 98% ON 4L N/C. FAMILY HERE AND STAYING WITH PATIENT. MULTIPLE FAMILY MEMBERS PRESENT IN LOBBY.
[2019-07-11] VITALS: BP 155/74
[2019-07-11 06:28] LABS: ALBUMIN 2.2 gm/dl (3.1-4.5); ALKALINE PHOSPHATASE 125 U/L (45-117); BUN 14 mg/dl (7-24); CHLORIDE 101 mmol/L (98-107); CREATININE 1.01 mg/dL (0.70-1.30); POTASSIUM 4.1 mmol/L (3.5-5.1); SGOT/AST 26 IU/L (3-35); SGPT/ALT 12 U/L (12-78); SODIUM 142 mmol/L (136-145); TOTAL PROTEIN 6.1 gm/dL (6.4-8.2)
[2019-07-11 08:00] VITALS: BP 158/74
--- NOTE | 2019-07-11 08:00 | NUR ---
PT IN ROOM ON NC 3.5L 99%. AWAKE AND ORIENTED TO SELF. BLE PRESENTS WITH EDEMA AND IS COLD TO TOUCH. PT STATES HE HAS BEEN HOT, COLD RAGS WERE PLACED ON FOREHEAD BY SON FOR COMFORT. DENIES PAIN OR DISCOMFORT AT THIS TIME. LAYING IN ROOM WITH FAMILY AT BEDSIDE ZANE ANGEL.RCC
--- NOTE | 2019-07-11 08:56 | NUR ---
Per H&P patients family reached out to their Hospice Company. MACHINE CONTAINER WASHER reached out to [facility]. She stated the only reached out to her no one from the Hospital has contacted them. MACHINE CONTAINER WASHER asked RN Hospitalist Coordinator for Hospice Consult to be able to fax to [facility]. -CATY Jeffery
--- NOTE | 2019-07-11 09:45 | NUR ---
PT IN ROOM WITH FAMILY, PT HELPED WITH TURNING AT MIN. PT WEAK AND C/O ROLLING TO RIGHT SIDE. PT DENIES ANY DYSPNEA, CHEST PAIN OR BODY ACHES. REFUSED TO EAT, SMALL AMOUNTS OF FLUID INTAKE. ZANE LLOYD.RCC
--- NOTE | 2019-07-11 09:53 | NUR ---
STROBOSCOPE OPERATOR faxed referral to [facility]. -DARBY JefferyW
--- NOTE | 2019-07-11 11:33 | NUR ---
RN SCHOOL spoke with [facility] they are scheduled to meet with the patient and family tomorrow 07/12/2019 at 10:00am. RN SCHOOL notified County Agent, Work High School Coach, and RN Hospitalist Coordinator Kassie. -CATY Jeffery
[2019-07-11 11:45] VITALS: BP 150/75
--- NOTE | 2019-07-11 11:45 | NUR ---
PT DENIES DYSPNEA AND CHEST PAIN. PT EXPRESSES HE KEEPS FEELING THE URGE TO URINATE. CATH INTACT WITH CLEAR, TRANSPARENT YELLOW URINE. PT APPEARS TO BE FATIGUE, BUT WAKES EASILY WITH PHYSICAL STIMULI. ZANE LLOYD.RCC
--- NOTE | 2019-07-11 13:00 | NUR ---
PT LAYING IN BED SURROUNDED BY FAMILY. NO S/S OF DISTRESS. PT DENIES CHEST PAIN OR DISCOMFORT. PTS FAMILY MENTIONED THEY HAVE A MEETING SET UP WITH HOSPICE MORNING OF 07/12. REPORT GIVEN TO [place]USTIN ANGEL.RCC
[2019-07-11 16:00] VITALS: BP 154/72
[2019-07-11 20:00] VITALS: BP 159/78
--- NOTE | 2019-07-11 20:20 | NUR ---
1950 PT RESTING IN BED IN SUPINE POSITION. HOB ELEVATED. FAMILY VS. NO DISTRESS NOTED. PULSE OX 99% WITH 02 INTACT, POE PATENT AND DRAINING CLEAR YELLOW URINE. EDEMA CONT FEET TO GROIN. HEP LCK INTACT. PT RESTING WITH EYES CLOSED. PT IS [place],
--- NOTE | 2019-07-11 21:30 | NUR ---
ROUTINE METHADONE GIVEN ORDERED, CRUSHED AND IN APPLESAUCE.
[2019-07-12] VITALS: BP 128/60
--- NOTE | 2019-07-12 00:49 | NUR ---
RESTING IN BED WITH EYES CLOSED. APPEARS TO BE SLEEPING.
--- NOTE | 2019-07-12 03:35 | NUR ---
INCONTINENT OF [place] BROWN, MUSHY STOOL. AUDELIA CARE DONE AND LINENS CHANGED. C/O PAIN IN HIS PENIS. TYLENOL 2 PO GIVEN FOR THIS. REPOSITIONED ON LEFT SIDE. WILL MONITOR.
--- NOTE | 2019-07-12 04:34 | NUR ---
EARLIER TYLENOL EFFECTIVE. RESTING IN BED WITH EYES CLOSED.
--- NOTE | 2019-07-12 06:13 | NUR ---
ROUTINE METHADONE GIVEN. POE PATENT. 02 INTACT. NO DISTRESS NOTED. CONDITION GUARDED.
[2019-07-12 08:00] VITALS: BP 146/68
--- NOTE | 2019-07-12 09:10 | NUR ---
MARTHA DELGADO ,CNA HHA FROM [facility] IN TO SEE PT.
--- NOTE | 2019-07-12 11:58 | NUR ---
FREDRICK MARIO FROM [facility] IN TO SEE PT.
[2019-07-12 12:00] VITALS: BP 146/72
--- NOTE | 2019-07-12 12:57 | NUR ---
AUTOMOBILE MECHANIC APPRENTICE spoke with [facility]. [facility] [place] RN is on her way now to make the patient GIP. -CATY Jeffery
--- NOTE | 2019-07-12 14:28 | NUR ---
NOTIFIED DR SOUZA THAT [facility] NURSE WAS HERE AND READY TO ADMIT PT TO INPATIENT HOSPICE.
--- NOTE | 2019-07-12 15:04 | NUR ---
Discharge instructions reviewed with patient/family. Patient receptive and verbalizes understanding. Follow-up care arranged. Written instructions given to patient/family.PT TO D/C TO INPATIENT [facility] ANNE ARTEAGA
== END 2019-07-12 15:04 | disposition hospice, home (50) | DRG 189 ==
LOC: ED 18:41 → 4E 20:32 → EDHOLD 20:32 → 4E 20:57
PROVIDERS: Emergency Medicine; Internal Medicine; ADMIT Internal Medicine
PROC: 5A09357 Assistance with Respiratory Ventilation, Less than 24 Consecutive Hours, Continuous Positive Airway Pressure (ICD-10-PCS; principal; 2019-07-10)
DX: J96.01 Acute respiratory failure with hypoxia (principal); R65.11 Systemic inflammatory response syndrome (SIRS) of non-infectious origin with acute organ dysfunction; E43 Unspecified severe protein-calorie malnutrition; I50.33 Acute on chronic diastolic (congestive) heart failure; E87.2 Acidosis; C64.9 Malignant neoplasm of unspecified kidney, except renal pelvis; C78.02 Secondary malignant neoplasm of left lung; C78.01 Secondary malignant neoplasm of right lung; C79.89 Secondary malignant neoplasm of other specified sites; C79.51 Secondary malignant neoplasm of bone; I11.0 Hypertensive heart disease with heart failure; R79.89 Other specified abnormal findings of blood chemistry; R74.0 Nonspecific elevation of levels of transaminase and lactic acid dehydrogenase [LDH]; E11.65 Type 2 diabetes mellitus with hyperglycemia; F32.9 Major depressive disorder, single episode, unspecified; E03.9 Hypothyroidism, unspecified; E78.5 Hyperlipidemia, unspecified; E53.8 Deficiency of other specified B group vitamins; R91.1 Solitary pulmonary nodule; K21.9 Gastro-esophageal reflux disease without esophagitis; Z66 Do not resuscitate; Z51.5 Encounter for palliative care; I25.10 Atherosclerotic heart disease of native coronary artery without angina pectoris; E83.52 Hypercalcemia; D64.9 Anemia, unspecified; G89.29 Other chronic pain; E66.9 Obesity, unspecified; F41.9 Anxiety disorder, unspecified; Z91.81 History of falling; Z85.46 Personal history of malignant neoplasm of prostate; Z90.49 Acquired absence of other specified parts of digestive tract; Z95.5 Presence of coronary angioplasty implant and graft; Z90.5 Acquired absence of kidney; Z87.891 Personal history of nicotine dependence; Z80.42 Family history of malignant neoplasm of prostate; Z80.0 Family history of malignant neoplasm of digestive organs; Z80.8 Family history of malignant neoplasm of other organs or systems; Z92.21 Personal history of antineoplastic chemotherapy; Z92.3 Personal history of irradiation; Z79.899 Other long term (current) drug therapy; Z68.29 Body mass index [BMI] 29.0-29.9, adult

== ENCOUNTER 2019-07-12 15:22 | Inpatient (IN) | payer OTHER, MEDICARE, BC ==
[~2019-07-12] VITALS: Ht 182.9 cm; Wt 99.5 kg
[2019-07-12 15:30] VITALS: BP 150/76
--- NOTE | 2019-07-12 15:30 | NUR ---
Time: 1529 A 69 year old MALE admitted to under services of CARTER SOLITARIO DO. Pt. ADMITTED TO [facility]. OK. Chief complaint: END OF LIFE CARE. ANNE ARTEAGA
--- NOTE | 2019-07-12 17:12 | NUR ---
NOTIFIED DR SOUZA OF MED RECONCILIATION.
--- NOTE | 2019-07-12 19:54 | NUR ---
SCHEDULED MS LIQUID PO GIVEN ORDERED. FAMILY VS AT BEDSIDE. PT IS ALERT AND PLEASANT.
[2019-07-12 20:00] VITALS: BP 151/65
--- NOTE | 2019-07-12 21:39 | NUR ---
2099 C/O BLADDER SPASMS. PT IS ANXIOUS. MEDICATED WITH TYLENOL 2 PO AND ATIVAN FOR ANXIETY. WILL MONITOR. 2134 EARLIER MEDS EFFECTIVE. RESTING IN BED WITH EYES CLOSED.
--- NOTE | 2019-07-12 23:34 | NUR ---
PT CALL LIGHT ON. FOREHEAD VERY DIAPHORETIC. COOL CLOTH APPLIED. RESPIRATIONS MOIST. SUCTION SET UP AT BEDSIDE. DR. ARTEAGA CALLED FOR ATROPINE DROPS. TO CALL BACK.
--- NOTE | 2019-07-12 23:39 | NUR ---
[facility] CALLED FOR RECOMMENDATIONS FOR ATROPINE DROPS. DR. ARTEAGA MADE AWARE.
--- NOTE | 2019-07-12 23:49 | NUR ---
PULSE OX 78% ON 2L. INCREASED TO 5L. PULSE OX UP TO 95%. ENCOURAGED TO COUGH, VERY WEAK. STATES "I'M SO HOT". TEMP 97 TYMPANIC. WILL CONT TO MONITOR.
[2019-07-13] VITALS: BP 160/91
--- NOTE | 2019-07-13 02:08 | NUR ---
RESTING IN B ED WITH EYES CLOSED. APPEARS TO BE SLEEPING.
[2019-07-13 04:00] VITALS: BP 130/61
--- NOTE | 2019-07-13 04:09 | NUR ---
PULSE OX 99% ON 4L. BP 130/61.
--- NOTE | 2019-07-13 06:09 | NUR ---
UNABLE TO GIVE AM SYNTHROID. PT IS TOO DROWSY. 02 INTACT. RESPIRATIONS REMAIN MOIST. HEP LOCK INTACT. POE PATENT. CONDITION GUARDED.
[2019-07-13 08:00] VITALS: BP 132/65
--- NOTE | 2019-07-13 08:00 | NUR ---
INITIAL ASSESSMENT COMPLETE. PT VITALS WNL. PT DOESNT RESPOND TO TACTILE OR VERBAL STIMULATION. MORPHINE HELD. UNABLE TO MEDICATE PT AT THIS TIME. RESPS ARE LABORED,RATE OF 22.S[POKE WITH TO DISCUSS PLAN OF CARE.PT VOICES HER CONCERNS AT THIS TIME REGARDING WANTING "PT TO SAY WHEN HE WANTS MEDICATED NOT TO BE UNRESPONSIVE".
--- NOTE | 2019-07-13 09:30 | NUR ---
DR GOOD AND DR DIEGO ROUNDED AND SEEN PT.FAMILY VOICED CONCERNS AT THIS TIME. I NOTIFIED DR DIEGO THAT THIS PT HAD BEEN UNRESPONSIVE THIS AM AND I HELD HIS DOSE OF MORPHINE.I ALSO ASKED ABOUT DOSAGE BEING POSSIBLY TOO MUCH AT THIS TIME FOR PT TO TOLERATED HE WAS JUST ABLE TO WAKE UP TO TAKE HIS SCHEDULED MEDICATIONS ORALLY. I INFORMED HIM ALL SCHEDULED DOSES HAD BEEN HELD OVERNIGHT D/T UNRESPONSIVENESS. ORDER RECIEVED TO D/C SCHEDULED Q4 ROXICODONE AND MADE IT PRN.
--- NOTE | 2019-07-13 10:00 | NUR ---
PT MEDICATED PER PRN MAR FOR 1 MG ATIVAN PO D/T ANXIETY.EDUCATION PROVIDED REGARDING AND DYING. PRN MED ADMINISTRATION AND MORAL SUPPORT PROVIDED AT THIS TIME TO AND CHILDREN AT BEDSIDE. PER SON "MY BROTHER DOESN'T WANT HIM KILLED QUICKLY". AWARE FAMILY PT ASSUMPTIONS. EDUCATION PROVIDED ON HOSPICE TO CHILDREN AT THIS TIME AND NOTIFIED [facility] AT THIS TIME. AWAITING RN ARRIVAL.FAMILY VOICES NO OTHER NEEDS AT THIS TIME.CALL LIGHT WITHIN REACH.
[2019-07-13 12:00] VITALS: BP 116/65
--- NOTE | 2019-07-13 14:02 | NUR ---
BRIDGMAN CONSTRUCTION EQUIPMENT TECHNICIAN,MILDRED CalabreseDISCUSSED MEDICATION CONCERNS BY STAFF AND FAMILY.REQUESTED HER RECOMMENDATIONS TO DECREASE PAIN MEDICATION TO SUBMIT TO ATTENDING PER ATTENDING'S REQUEST.CONSTRUCTION EQUIPMENT TECHNICIAN DISCUSSED REC OMMENDATIONS WITH HER DR AND PHARMACIST AND DR SOUZA NOTIFIED. ORDERS RECIEVED.FAMILY VOICES NO NEW CONCERNS WITH MEDICATIONS AT THIS TIME. CALL LIGHT IN REACH.
[2019-07-13 16:00] VITALS: BP 125/62
--- NOTE | 2019-07-13 19:00 | NUR ---
IF UNABLE TO REACH EMERGENCY CONTACT, PLEASE CALL SON AT [phone].
[2019-07-13 20:00] VITALS: BP 118/55
--- NOTE | 2019-07-13 21:15 | NUR ---
ATROPINE GTTS GIVEN FOR MOIST AUDIBLE SECRETIONS. FAMILY AT BEDSIDE. PT AWOKEN FOR PO MEDS. NO C/O PAIN VOICED. PT REFUSING TO BE REPOSITIONED AT THIS TIME. BED ALARM ON W/CALL LIGHT IN REACH.
--- NOTE | 2019-07-13 22:45 | NUR ---
PT RESTING QUIETLY IN BED W/FAMILY AT BEDSIDE. NO S/S OF DISTRESS NOTED.
[2019-07-14] VITALS: BP 136/68
--- NOTE | 2019-07-14 03:14 | NUR ---
24 HR chart check completed.
--- NOTE | 2019-07-14 04:22 | NUR ---
BED BATH GIVEN TO PT AT THIS TIME ALONG W/MOUTH CARE. PT DENIES PAIN. REPOSITIONED W/WEDGE AND ELEVATED BLE W/PILLOW. BED ALARM ON W/CALL LIGHT IN REACH.
--- NOTE | 2019-07-14 07:19 | NUR ---
PT STATES HE IS IN PAIN AND WANTS TEQUILA. PT TEACHING GIVEN ON NO ALCOHOL AVAILABLE HE IS IN HOSPITAL. PT POINTS TO THE TV. PT MEDICATED W/MORPHINE SL AT THIS TIME. PT REPOSITIONED IN BED.
[2019-07-14 08:00] VITALS: BP 124/69
--- NOTE | 2019-07-14 08:15 | NUR ---
PT YELLING OUT & VERY AGITATED AT THIS TIME, REFUSING ORAL MEDICATIONS. ONE TIME DOSE OF IV ATIVAN ORDERED BY AT THIS TIME & GIVEN PER ORDER. WILL MONITOR FOR EFFECTIVENESS.
--- NOTE | 2019-07-14 09:15 | NUR ---
PATIENT VERY RELAXED/DROWSY AT THIS TIME & NO S/S OF AGITATION NOTED. FAMILY PRESENT IN ROOM. PRN MEDS EFFECTIVE.
--- NOTE | 2019-07-14 10:00 | NUR ---
PT NOTED TO HAVE INCREASED RESPIRATIONS AND RESTLESSNESS AT THIS TIME; MEDICATED WITH IV MORPHINE PER ORDER; WILL MONITOR.
--- NOTE | 2019-07-14 11:05 | NUR ---
PT STILL NOTED TO BE TACHYPNEIC AND AGITATED; MEDICATED WITH ANOTHER DOSE OF IV MORPHINE PER ORDER. WILL MONITOR.
[2019-07-14 12:00] VITALS: BP 118/67
--- NOTE | 2019-07-14 12:27 | NUR ---
PT APPEARS COMFORTABLE AT THIS TIME; FAMILY PRESENT AT BEDSIDE.
--- NOTE | 2019-07-14 12:48 | NUR ---
ALERTED BY FAMILY THAT PT IS STARTING TO GET AGITATED. INCREASED RESPIRATIONS AND JERKING MOVEMENTS OF FEET NOTEDL MEDICATED WITH IV MORPHINE FOR COMFORT; WILL MONITOR.
--- NOTE | 2019-07-14 14:00 | NUR ---
PT STILL APPEARS RESTLESS/AGITATED. MEDICATED WITH IV ATIVAN PER ORDER. WILL MONITOR FOR EFFECTIVENESS.
--- NOTE | 2019-07-14 14:45 | NUR ---
PT RELAXED, EYES CLOSED. FAMILY PRESENT AT BEDSIDE. OFFERED TO REPOSITION PATIENT & FAMILY PREFERS TO JUST LET HIM REST AT THIS POINT.
[2019-07-14 16:00] VITALS: BP 116/81
--- NOTE | 2019-07-14 17:25 | NUR ---
PT MEDICATED WITH IV MOPRHINE PER ORDER FOR AIR HUNGER AND AGITATION. WILL MONITOR FOR EFFECTIVENESS.
[2019-07-14 20:00] VITALS: BP 130/68
--- NOTE | 2019-07-14 20:21 | NUR ---
MEDICATED WITH MORPHINE FOR SIGNS OF PAIN, PATIENT GRIMACING AND IS RESTLESS IN BED. RM WILL CONTINUE TO MONITOR
--- NOTE | 2019-07-14 21:20 | NUR ---
FAMILY TO DESK, STATE THEY WOULD LIKE PATIENT TO BE MEDIACTED, UPON ENTERING THE ROOM, PATIENT IS VERY RESTLESS. PATIENT RAISING ARMS ABOVE HEAD AND KICKING LEGS IN BED. FAMILY STATES THAT THEY ARE NOW READY FOR THE PATIENT TO BE MEDICATED Q1HR PRN. MEDICATED ACCORDING TO DR SAXENA
--- NOTE | 2019-07-14 22:51 | NUR ---
MEDICATED WITH ATIVAN AND MORPHINE PER DRS ORDERS. PATIENT APPEARS TO BE RESTING MORE SOUNDLY SINCE EARLIER MEDICATIONS BUT IS STILL EXHIBITING AIR HUNGER AND PAIN.
[2019-07-15] VITALS: BP 110/63
--- NOTE | 2019-07-15 00:07 | NUR ---
FAMILY AT BEDSIDE VISITING WITH PATIENT, REQUESTING MEDICATIONS FOR PATIENTS PAIN, PATIENT MAKING GRIMACES AND KICKING LEGS IN BED. OFFERED TO REPOSITION PATIENT AND FAMILY DECLINES. MEDICATED WITH MORPHINE AND ATIVAN. SEE SERA, AND REBECCA ORDERS,.
--- NOTE | 2019-07-15 01:39 | NUR ---
PATIENT ADMINISTER IV PRN MEDICATIONS SEE EMAR. PATIENT CONTINUES TO DISPLAY AIR HUNGER AND GASPING RESPIRATIONS.
--- NOTE | 2019-07-15 03:15 | NUR ---
MORPHINE AND ATIVAN GIVEN PER DRS ORDERS. FAMILY AT BEDSIDE. RN WILL MONITOR. PATIENT CONTINUES TO HAVE GASPING BREATHES AND GRIMACING FACIAL EXPRESSES. REMAINS NONVERBAL. FAMILY REQUESTING THAT STAFF NOT REPOSITION OFTEN DUE TO DISTRESS CAUSED TO PATIENT
--- NOTE | 2019-07-15 04:40 | NUR ---
IV started left upper arm with #22 protective cath after 1 attempts. Site prepped with Chloroprep. Sterile dressing applied. Patient tolerated procedure well. JONATHAN PIERCE
--- NOTE | 2019-07-15 04:43 | NUR ---
PATIENT MEDICATED WITH MORPHINE AND ATIVAN PER DRS ORDERS AFTER NEW IV SITE ESTABLISHED IN THE LEFT UPPER ARM. IV TO LEFT ANTECUBITAL WAS STILL PATENT BUT D/T PATIENT SWELLING IT WAS HARD TO FLUSH AND ADMINISTER MEDICATIONS. PATIENT TOLERATED WELL
--- NOTE | 2019-07-15 05:53 | NUR ---
MEDICATED WITH MORPHINE AND ATIVAN PER DRS ORDERS. RN WILL MONITOR
[2019-07-15 08:00] VITALS: BP 77/43
--- NOTE | 2019-07-15 09:30 | NUR ---
PT CEIZED TO BREATHE AT O930. MORPHINE SULFATE WASTED WITH SECOND NURSE PARVEEN. DR DIEGO, PHYSICIAN NON INVASIVE CARDIOLOGIST AND HOSPICE NOTIFIED OF .
--- NOTE | 2019-07-15 11:04 | NUR ---
[facility] NOTIFIED THAT HAS LEFT DUE TO POTENTIAL EYE ONLY DONATION.
--- NOTE | 2019-07-15 11:49 | NUR ---
POST-MORTAL CARE COMPLETE. [facility] CALLED TO TAKE BODY TO [place] DUE TO HOLD FOR [facility].
--- NOTE | 2019-07-15 12:00 | NUR ---
[facility] NOTIFIED PT TAKEN TO [facility].
--- NOTE | 2019-07-15 13:30 | NUR ---
[facility] STATED OK TO RELEASE BODY.
--- NOTE | 2019-07-15 13:57 | NUR ---
[facility] NOTIFIED THEY MAY TAKE BODY.
== END 2019-07-15 11:49 | disposition expired | DRG 686 ==
LOC: 4E 15:22
PROVIDERS: ADMIT Internal Medicine
DX: C64.9 Malignant neoplasm of unspecified kidney, except renal pelvis (principal); J96.21 Acute and chronic respiratory failure with hypoxia; E87.2 Acidosis; C78.02 Secondary malignant neoplasm of left lung; C78.01 Secondary malignant neoplasm of right lung; C79.89 Secondary malignant neoplasm of other specified sites; C79.51 Secondary malignant neoplasm of bone; I50.42 Chronic combined systolic (congestive) and diastolic (congestive) heart failure; I11.0 Hypertensive heart disease with heart failure; E03.9 Hypothyroidism, unspecified; Z66 Do not resuscitate; Z51.5 Encounter for palliative care; F41.9 Anxiety disorder, unspecified; E78.5 Hyperlipidemia, unspecified; E66.9 Obesity, unspecified; E55.9 Vitamin D deficiency, unspecified; E53.8 Deficiency of other specified B group vitamins; R91.1 Solitary pulmonary nodule; K21.9 Gastro-esophageal reflux disease without esophagitis; G89.3 Neoplasm related pain (acute) (chronic); I25.10 Atherosclerotic heart disease of native coronary artery without angina pectoris; R79.89 Other specified abnormal findings of blood chemistry; R74.0 Nonspecific elevation of levels of transaminase and lactic acid dehydrogenase [LDH]; E11.9 Type 2 diabetes mellitus without complications; Z79.4 Long term (current) use of insulin; Z90.5 Acquired absence of kidney; Z92.3 Personal history of irradiation; Z92.21 Personal history of antineoplastic chemotherapy; Z85.46 Personal history of malignant neoplasm of prostate; Z90.49 Acquired absence of other specified parts of digestive tract; Z95.5 Presence of coronary angioplasty implant and graft; Z87.891 Personal history of nicotine dependence; Z80.42 Family history of malignant neoplasm of prostate; Z80.8 Family history of malignant neoplasm of other organs or systems; Z80.0 Family history of malignant neoplasm of digestive organs; Z79.899 Other long term (current) drug therapy; Z68.29 Body mass index [BMI] 29.0-29.9, adult